=== PATIENT | female | born 1980 | race Caucasian/White ===

== ENCOUNTER 2024-07-06 07:22 | Inpatient (IN) | payer MEDICAID, OTHER ==
[~2024-07-06] VITALS: Ht 160 cm; Wt 74.9 kg
--- NOTE | 2024-07-06 07:45 | ED.PDOC ---
General HPI Comments 44F BIBA w/ prior Hx of "kidney problem"potential dialysis"", Appendectomy, Hysterectomy, Tubal Ligation and Hernia repair which may be associated to the c/c of Flank pain. EMS report the pt having right sided Flank pain which started last night and was associated w/ N/V. Pt notes the pain type to be a 7/10. PMHx of cirrhosis. Social Hx of marijuana use, but denies tobacco and alcohol use. Family Hx of Heart Sullivan. Denies chills, fever, /D, SOB, CP or other associated symptoms, modifiers, or recent injuries at this time. Chief Complaint: Abdominal Pain Time Seen by MD: 07:20 Primary Care Provider: NONE Reviewed notes: Nurses Notes, Care Manager Notes, Medications, Allergies Allergies: Coded Allergies: NO KNOWN ALLERGIES (Unverified , 07/06/24) Information Source: Patient, Emergency Med Personnel Mode of Arrival: EMS Severity: Moderate Timing: Hours Duration: Since onset, Hours Prehospital treatment: Pain Meds Onset: Spontaneous Symptoms: None History of: None Location: (R) Flank associated signs and symptoms: Nausea, Vomiting, Flank Pain Past Medical History Past Medical History (Other): cirrhosis and "kidney problem "potential dialysis"" Surgical History: Appendectomy, Hernia Repair, Hysterectomy, Tubal Ligation ROASTMASTER History: No Pertinent ROASTMASTER History Family History Family History: Family hx of heart estrella Social History Smoker: Non-Smoker Alcohol: Denies ETOH Use Drugs: Marijuana Lives In: Home Constitutional: denies: chills, diaphoresis, fatigue, fever, malaise, sweats, weakness, others EENTM: denies: blurred vision, double vision, ear bleeding, ear discharge, ear drainage, ear pain, ear ringing, eye pain, eye redness, hearing loss, mouth pain, mouth swelling, nasal discharge, nose bleeding, nose congestion, nose pain, photophobia, tearing, throat pain, throat swelling, voice changes, others Respiratory: denies: cough, hemoptysis, orthopnea, SOB at rest, shortness of breath, SOB with excertion, stridor, wheezing, others Cardiovascular: denies: chest pain, dizzy spells, diaphoresis, Dyspnea on exertion, edema, irregular heart beat, left arm pain, lightheadedness, pa lpitations, PND, syncope, others Gastrointestinal: reports: nausea, vomiting; denies: abdomen distended, abdominal pain, blood streaked bowels, constipated, diarrhea, dysphagia, difficulty swallowing, hematemesis, melena, poor appetite, poor fluid intake, rectal bleeding, rectal pain, others Genitourinary: reports: flank pain; denies: abnormal vagina bleeding, burning, dyspareunia, dysuria, frequency, hematuria, incontinence, pain, , vagina discharge, urgency, others Neurological: denies: dizziness, fainting, headache, left sided numbness, left sided weakness, numbness, paresthesia, pre-existing deficit, right sided numbnes s, right sided weakness, seizure, speech problems, tingling, tremors, weakness, others Musculoskeletal: denies: back pain, gout, joint pain, joint swelling, muscle pain, muscle stiffness, neck pain, others Integumetry: denies: bruises, change in color, change in hair/nails, dryness, laceration, lesions, lumps, rash, wounds, others Allergic/Immunocompromised: denies: Difficulty Healing, Frequent Infections, Hives, Itching, others Hematologic/Lymphatic: denies: anemia, blood clots, easy bleeding, easy bruising, swollen glands, others Endocrine: denies: excessive hunger, excessive sweating, excessive thirst, excessive urination, flushing, intolerance to cold, intolerance to heat, unexplained weight gain, unexplained weight loss, others Psychiatric: denies: anxiety, bipolar disorder, depression, hopeless, panic disorder, schizophrenia, sleepless, suicidal, others All Other Systems: Reviewed and Negative Physical Exam General Appearance: Moderate Distress HEENT: Normal ENT Inspection, Pharynx Normal, TMs Normal Neck: Full Range of Motion, Non-Tender, Normal, Normal Inspection Respiratory: Chest Non-Tender, Lungs Clear, No Accessory Muscle Use, No Respiratory Distress, Normal Breath Sounds Cardiovascular: No Edema, No JVD, No Murmur, No Gallop, Normal Peripheral Pulses, Regular Rate/Rhythm Breast Exam: Deferred Gastrointestinal: No Organomegaly, Non Tender, No Pulsatile Mass, Normal Bowel Sounds, Soft Genitalia: Deferred Pelvic: Deferred Rectal: Deferred Extremities: No calf tenderness, Normal capillary refill, Normal inspection, Normal range of motion, Non-tender, No pedal edema Musculoskeletal : Apperance: Normal Neurologic: Alert, spool sander II-XII nml as Tested, No Motor Deficits, Normal Affect, Normal Mood, No Sensory Deficits Cerebellar Function: Normal Reflexes: Normal Skin: Dry, Normal Color, Warm Lymphatic: No Adenopathy Was a procedure done? Was a procedure done?: No Differential Diagnosis Kidney stone (Female): Pancreatitis, Pyelonephritis, Renal failure, Urolithiasis X-Ray, Labs, Meds, VS Vital Signs Date Time Temp Pulse Resp B/P (MAP) Pulse Ox O2 Delivery O2 Flow Rate FiO2 07/06/24 10:30 72 19 139/90 (106) 97 07/06/24 09:30 56 18 145/84 (104) 97 07/06/24 08:30 60 17 147/89 07/06/24 08:02 81 22 138/85 07/06/24 07:56 76 07/06/24 07:55 81 22 100 Room Air* 0 21 07/06/24 07:55 97.9 81 22 138/85 (102) 100 97.9 07/06/24 07:26 97.5 81 20 134/72 (92) 98 Lab Test 07/06/24 09:42 07/06/24 07:48 Range/Units Urine Color Light-yellow Yellow Urine Clarity Clear Clear Urine pH 8.5 5.0-9.0 Urine Specific [place] 1.020 1.001-1.035 Urine Protein 1+ H Negative Urine Ketones 2+ H Negative Urine Blood Negative Negative /uL Urine Nitrite Negative Negative Urine Bilirubin Negative Negative Urine Urobilinogen Normal Negative mg/dL Urine Leukocyte Esterase Negative Negative /uL Urine RBC 1 0 - 4 /hpf Urine WBC <1 0 - 5 /hpf Urine Squamous Epithelial Cells Few <5 /hpf Urine Bacteria Few H None Seen /hpf Urine Mucus Few None Seen Urine Glucose Normal Normal mg/dL Urine Opiates Screen Pos NEGATIVE Urine Fentanyl Screen Neg NEGATIVE Urine Barbiturates Screen Neg NEGATIVE Urine Phencyclidine Screen Neg NEGATIVE Urine Amphetamines Screen Neg NEGATIVE Urine Benzodiazepines Screen Neg NEGATIVE Urine Cocaine Screen Neg NEGATIVE Urine Cannabinoids Screen Pos NEGATIVE White Blood Count 11.2 H 4.4-10.8 10^3/uL Red Blood Count 4.36 4.0-5.20 10^6/uL Hemoglobin 14.2 12.2-16.2 g/dL Hematocrit 42.0 36.0-46.0 % Mean Corpuscular Volume 96.3 80.0-100.0 fL Mean Corpuscular Hemoglobin 32.7 H 28.0-32.0 pg Mean Corpuscular Hemoglobin Concent 34.0 32.0-36.0 g/dL Red Cell Distribution Width 13.8 11.8-14.3 % Platelet Count 418 140-450 10^3/uL Mean Platelet Volume 7.0 6.9-10.8 fL Neutrophils (%) (Auto) 84.3 H 37.0-80.0 % Lymphocytes (%) (Auto) 10.9 10.0-50.0 % Monocytes (%) (Auto) 4.0 0.0-12.0 % Eosinophils (%) (Auto) 0.2 0.0-7.0 % Basophils (%) (Auto) 0.6 0.0-2.0 % Neutrophils # (Auto) 9.5 H 1.6-8.6 10 ^3/uL Lymphocytes # (Auto) 1.2 0.4-5.4 10 ^3/uL Monocytes # (Auto) 0.4 0-1.3 10 ^3/uL Eosinophils # (Auto) 0 0-0.8 10 ^3/uL Basophils # (Auto) 0.1 0-0.2 10 ^3/uL Nucleated Red Blood Cells 0.1 % Sodium Level 141 136-145 mmol/L Potassium Level 3.5 3.5-5.1 mmol/L Chloride Level 104 98-107 mmol/L Carbon Dioxide Level 26 20-31 mmol/L Anion Gap 11 5-15 Blood Urea Nitrogen 6 L 9-23 mg/dL Creatinine 0.87 0.550-1.02 mg/dL Glomerular Filtration Rate Calc 83 >90 mL/min BUN/Creatinine Ratio 6.9 L 10.0-20.0 Serum Glucose 122 H 74-106 mg/dL Calcium Level 9.3 8.7-10.4 mg/dL Total Bilirubin 0.5 0.2-1.0 mg/dL Aspartate Amino Transferase (AST) 32 13-40 U/L Alanine Aminotransferase (ALT) 24 7-40 U/L Alkaline Phosphatase 61 46-116 U/L Total Protein 7.9 5.7-8.2 g/dL Albumin 4.3 3.2-4.8 g/dL Lipase 34 12-53 U/L Current Medications Medications (Trade) Dose Ordered Sig/Elizabeth Route Start Time Stop Time Status Last Admin Morphine Sulfate 4 mg ONCE ONCE IV 07/06/24 07:45 07/06/24 07:46 DC 07/06/24 08:02 Sodium Chloride 500 ml @ 500 mls/hr Q1H ONCE IVB 07/06/24 07:45 07/06/24 08:44 DC 07/06/24 08:02 Prochlorperazine Edisylate (Compazine Inj) 10 mg ONCE ONCE IV 07/06/24 07:45 07/06/24 07:46 DC 07/06/24 08:01 Pantoprazole Sodium (Protonix) 40 mg ONCE ONCE IV 07/06/24 07:45 07/06/24 07:46 DC 07/06/24 08:01 CT scan of the abdomen and pelvis shows: IMPRESSION: 1. No hydronephrosis and no renal or ureteral calculi. 2. Borderline mild hepatomegaly. Small subcentimeter fat density lesion in the liver, likely a small lipoma. 3. Additional nonacute findings as detailed above. The patient was given morphine 4 mg IV push for the pain The patient was given normal saline at a 500 cc bolus. For the vomiting, the patient was given Compazine 10 mg IV push The patient was given Protonix 40 mg IV push The patient did receive some mild relief but the pain has now returned The patient's CBC shows an elevated white blood cell count of 11.2 The rest of the CBC is within normal limits The chemistry panel is within normal limits The urine tox is positive for opiates as well as for marijuana The urine test is negative for infection Because of the persistent pain, the patient was being admitted to the hospitalist The patient understands and agrees with the management. Images Reviewed?: Images reviewed and evaluated by me Time of 1ST Reevaluation: 07:50 Reevaluation 1ST: Unchanged Patient Education/Counseling: Diagnosis, Treatment, Prognosis Family Education/Counseling: No Family Present Departure 1 Departure Time of Disposition: 11:07 Impression: Primary Impression: Intractable abdominal pain Additional Impressions: Intractable vomiting Cannabinoid hyperemesis syndrome Disposition: ADMITTED INPATIENT Admit to: Med Surg Condition: Fair Critical Care Note Critical Care Time?: No Stability Stability form required: Yes Unstable for transfer: ED Physician Assesment (Clinical assesment) Heart Score Heart Score: Heart Score Response (Comments) Value History N/A 0 EKG N/A 0 Age N/A 0 Risk Factors N/A 0 Troponin N/A 0 Total 0 I personally scribed for KRISTIN ROCHA MD ([email or web address]) on 07/06/24 at 07:45. Electronically submitted by William Sylvester ([email or web address]). KRISTIN ROCHA MD Jul 06, 2024 07:45
[2024-07-06 07:55] VITALS: PULSE 81; RESP 22; O2SAT 100
[2024-07-06] MEDS: PANTOPRAZOLE 40 MG/10 ML VIAL INJ IV ONE (08:01)
[2024-07-06] MEDS: PROCHLORPERAZINE EDISYLATE 5 MG/ML 2ML VIAL IV ONE (08:01)
[2024-07-06] MEDS: MORPHINE SULFATE 4 MG/ML SYR/VIAL IV ONE (08:02)
[2024-07-06] MEDS: SODIUM CHLORIDE 0.9% 500 ML IVB ONE (08:02)
[2024-07-06 08:04] LABS: Basophils # (auto) 0.1 10 ^3/uL (0-0.2); Basophils % (auto) 0.6 % (0.0-2.0); Eosinophils # (auto) 0 10 ^3/uL (0-0.8); Eosinophils % (auto) 0.2 % (0.0-7.0); Hemoglobin 14.2 g/dL (12.2-16.2); Lymphocytes # (auto) 1.2 10 ^3/uL (0.4-5.4); Lymphocytes % (auto) 10.9 % (10.0-50.0); Mean Corpuscular Hemoglobin 32.7 pg (28.0-32.0); Mean Corpuscular Volume 96.3 fL (80.0-100.0); Monocytes # (auto) 0.4 10 ^3/uL (0-1.3); Neutrophils # (auto) 9.5 10 ^3/uL (1.6-8.6); Neutrophils % (auto) 84.3 % (37.0-80.0); Nucleated Red Blood Cells % 0.1 %; Platelet Count (auto) 418 10^3/uL (140-450); Red Blood Cells 4.36 10^6/uL (4.0-5.20); Red Cell Distribution Width 13.8 % (11.8-14.3); White Blood Cell 11.2 10^3/uL (4.4-10.8)
[2024-07-06 08:17] LABS: Alanine Aminotransferase 24 U/L (7-40); Albumin 4.3 g/dL (3.2-4.8); Alkaline Phosphatase 61 U/L (46-116); Anion Gap 11 (5-15); Aspartate Aminotransferase 32 U/L (13-40); BUN/Creatinine Ratio 6.9 (10.0-20.0); Blood Urea Nitrogen 6 mg/dL (9-23); Calcium 9.3 mg/dL (8.7-10.4); Carbon Dioxide 26 mmol/L (20-31); Chloride 104 mmol/L (98-107); Glucose 122 mg/dL (74-106); Potassium 3.5 mmol/L (3.5-5.1); Sodium 141 mmol/L (136-145)
[2024-07-06 08:18] LABS: Bilirubin, Total 0.5 mg/dL (0.2-1.0); Total Protein 7.9 g/dL (5.7-8.2)
--- NOTE | 2024-07-06 08:36 | DVH ---
CLINICAL INFORMATION: 44 years old, Female; right flank pain. TECHNIQUE: Axial CT images of the abdomen and pelvis were obtained without IV contrast. Coronal and sagittal reformatted images were obtained, reviewed, and stored. Evaluation of the parenchymal organs is limited without IV contrast. Evaluation of the bowel and mesentery is limited without oral contra st. All CT scans at this medical facility are performed using dose modulation techniques as appropria te to a performed exam including the following: Automated exposure control was utilized; adjustment o f the MA and/or KV according to patient size; and use of iterative reconstruction technique. CTDIvol = 14.27 mGy DLP = 783.1 mGy-cm COMPARISON: None FINDINGS: Lung bases: Lung bases are clear. Liver: 0.6 cm fat density lesion in the liver near the junction of the right and left hepatic lobes, suspected small lipoma. Liver measures up to 16.4 cm in craniocaudal dimension at the midclavicular line, borderline mildly enlarged. Biliary: No calcified gallstones or biliary ductal dilatation. Spleen: Unremarkable. Pancreas: Grossly unremarkable in its noncontrast enhanced appearance. Adrenal glands: Unremarkable. No mass. Kidneys: No hydronephrosis. No renal or ureteral calculi. Aorta/Vascular: No aneurysm or significant calcification. Retroperitoneum: No mass or lymphadenopathy. Bowel/mesentery: No small bowel obstruction. No free air or free fluid. Appendix is not visualized, m ay be surgically absent with postsurgical changes adjacent to the cecum. Pelvic organs: Uterus is surgically absent. Bladder: Unremarkable. No mass. Abdominal wall: No mass or hernia. Bones: No acute fracture or suspicious intraosseous lesion. IMPRESSION: 1. No hydronephrosis and no renal or ureteral calculi. 2. Borderline mild hepatomegaly. Small subcentimeter fat density lesion in the liver, likely a small lipoma. 3. Additional nonacute findings as detailed above.
[2024-07-06 09:10] LABS: Lipase 34 U/L (12-53)
[2024-07-06 10:20] LABS: Urine Bacteria FEW /hpf (None Seen); Urine Blood Negative /uL (Negative); Urine Color Light-Yellow (Yellow); Urine Mucus FEW (None Seen); Urine Protein, UAD 1+ (Negative); Urine Urobilinogen Normal (Negative); Urine WBC <1 /hpf (0 - 5); Urine pH 8.5 (5.0-9.0)
[2024-07-06 10:21] LABS: Urine Clarity Clear (Clear)
[2024-07-06 10:30] LABS: Amphetamine Screen, Urine Neg (NEGATIVE); Barbiturate Scree,Urine Neg (NEGATIVE); Benzodiazephine Screen, Urine Neg (NEGATIVE); Cocaine Screen, Urine Neg (NEGATIVE)
[2024-07-06 10:31] LABS: Cannabinoid Screen, Urine Pos (NEGATIVE); Opiate Scree,Urine Pos (NEGATIVE); Phencyclidine Screen, Urine Neg (NEGATIVE)
--- NOTE | 2024-07-06 12:14 | DVHHP2 ---
History of Present Illness Reason for Visit: Abdominal pain History of Present Illness This 44-year-old female presents in the ED via EMS with a chief complaint of abdominal pain. The patient reports abdominal pain associated with right flank pain, nausea, and vomiting started last night and symptoms worsened early this morning for which prompted to ER visit. The patient denies hematemesis, constipation, diarrhea, or melena. Past medical history of cirrhosis, UTI, and marijuana use. Past Medical History As stated in HPI Past Surgical History Appendectomy, hysterectomy, tubal ligation, Family History Reviewed, non-contributory to the management of this case. Past Social History Admits to marijuana use Denies tobacco use Review of Systems Constitutional: Yes: Malaise; No: Fever, Chills, Sweats, Weakness, Other Eyes: No: Pain, Vision change, Conjunctivae inflammation, Eyelid inflammation, Other, Redness ENT: No: Ear pain, Ear discharge, Nose pain, Nose discharge, Nose congestion, Mouth pain, Mouth swelling, Throat pain, Throat swelling, Other Respiratory: No: Cough, Dry, Shortness of breath, SOB with excertion, Wheezing, Hemoptysis, Pleuritic Pain, Sputum, Wheezing, Other Cardiovascular: No: Chest Pain, Palpitations, Orthopnea, Paroxysmal Noc. Dyspnea, Edema, Lt Headedness, Other Gastrointestinal: Nausea, Vomiting, Abdominal Pain; No: Diarrhea, Constipation, Melena, Hematochezia, Other Genitourinary: No Dysuria, No Frequency, No Incontinence, No Hematuria, No Retention; Other (Right flank pain) Musculoskeletal: No: other, neck pain, shoulder pain, arm pain, back pain, hand pain, leg pain, foot pain Skin: No: Rash, Lesions, Jaundice, Bruising, Other Neurological: No: Weakness, Numbness, Incoordination, Change in speech, Confusion, Seizures, Other Allergies: Coded Allergies: NO KNOWN ALLERGIES (Unverified , 07/06/24) Medications Current Medications Medications Dose Ordered Sig/Elizabeth Route Start Time Stop Time Status Last Admin Dose Admin Acetaminophen/ Hydrocodone Bitart 1 tab Q4HP PRN PO 07/06/24 12:15 UNV Ondansetron HCl 4 mg Q4HP PRN IV 07/06/24 12:15 UNV Acetaminophen 650 mg Q6HP PRN PO 07/06/24 12:15 UNV Morphine Sulfate 2 mg Q4HPRN PRN IV 07/06/24 12:15 UNV Pantoprazole Sodium 40 mg DAILY IV 07/07/24 10:00 UNV Sodium Chloride 1,000 ml @ 100 mls/hr Q10H IV 07/06/24 12:15 UNV Exam Vital Signs Vital Signs Date Time Temp Pulse Resp B/P (MAP) Pulse Ox O2 Delivery O2 Flow Rate FiO2 07/06/24 10:30 72 19 139/90 (106) 97 07/06/24 07:55 Room Air* 0 21 07/06/24 07:55 97.9 97.9 General Appearance: Alert, Oriented X3, Cooperative, mild distress HEENT: Atraumatic, PERRLA, EOMI Respiratory: Clear to auscultation, Normal air movement Cardiovascular: Regular rate, Normal S1, Normal S2 Abdominal: Normal bowel sounds, Soft, No tenderness, Other Extremities: No clubbing, No cyanosis, No edema Skin: No rashes, No breakdown Neuro: Normal gait, Normal speech, Strength at 5/5 X4 ext, Normal tone, Sensation intact Psych/Mental Status: Mental status NL Labs/Xrays Labs Test 07/06/24 09:42 07/06/24 07:48 Range/Units Urine Color Light-yellow Yellow Urine Clarity Clear Clear Urine pH 8.5 5.0-9.0 Urine Specific [place] 1.020 1.001-1.035 Urine Protein 1+ H Negative Urine Ketones 2+ H Negative Urine Blood Negative Negative /uL Urine Nitrite Negative Negative Urine Bilirubin Negative Negative Urine Urobilinogen Normal Negative mg/dL Urine Leukocyte Esterase Negative Negative /uL Urine RBC 1 0 - 4 /hpf Urine WBC <1 0 - 5 /hpf Urine Squamous Epithelial Cells Few <5 /hpf Urine Bacteria Few H None Seen /hpf Urine Mucus Few None Seen Urine Glucose Normal Normal mg/dL Urine Opiates Screen Pos NEGATIVE Urine Fentanyl Screen Neg NEGATIVE Urine Barbiturates Screen Neg NEGATIVE Urine Phencyclidine Screen Neg NEGATIVE Urine Amphetamines Screen Neg NEGATIVE Urine Benzodiazepines Screen Neg NEGATIVE Urine Cocaine Screen Neg NEGATIVE Urine Cannabinoids Screen Pos NEGATIVE White Blood Count 11.2 H 4.4-10.8 10^3/uL Red Blood Count 4.36 4.0-5.20 10^6/uL Hemoglobin 14.2 12.2-16.2 g/dL Hematocrit 42.0 36.0-46.0 % Mean Corpuscular Volume 96.3 80.0-100.0 fL Mean Corpuscular Hemoglobin 32.7 H 28.0-32.0 pg Mean Corpuscular Hemoglobin Concent 34.0 32.0-36.0 g/dL Red Cell Distribution Width 13.8 11.8-14.3 % Platelet Count 418 140-450 10^3/uL Mean Platelet Volume 7.0 6.9-10.8 fL Neutrophils (%) (Auto) 84.3 H 37.0-80.0 % Lymphocytes (%) (Auto) 10.9 10.0-50.0 % Monocytes (%) (Auto) 4.0 0.0-12.0 % Eosinophils (%) (Auto) 0.2 0.0-7.0 % Basophils (%) (Auto) 0.6 0.0-2.0 % Neutrophils # (Auto) 9.5 H 1.6-8.6 10 ^3/uL Lymphocytes # (Auto) 1.2 0.4-5.4 10 ^3/uL Monocytes # (Auto) 0.4 0-1.3 10 ^3/uL Eosinophils # (Auto) 0 0-0.8 10 ^3/uL Basophils # (Auto) 0.1 0-0.2 10 ^3/uL Nucleated Red Blood Cells 0.1 % Sodium Level 141 136-145 mmol/L Potassium Level 3.5 3.5-5.1 mmol/L Chloride Level 104 98-107 mmol/L Carbon Dioxide Level 26 20-31 mmol/L Anion Gap 11 5-15 Blood Urea Nitrogen 6 L 9-23 mg/dL Creatinine 0.87 0.550-1.02 mg/dL Glomerular Filtration Rate Calc 83 >90 mL/min BUN/Creatinine Ratio 6.9 L 10.0-20.0 Serum Glucose 122 H 74-106 mg/dL Calcium Level 9.3 8.7-10.4 mg/dL Total Bilirubin 0.5 0.2-1.0 mg/dL Aspartate Amino Transferase (AST) 32 13-40 U/L Alanine Aminotransferase (ALT) 24 7-40 U/L Alkaline Phosphatase 61 46-116 U/L Total Protein 7.9 5.7-8.2 g/dL Albumin 4.3 3.2-4.8 g/dL Lipase 34 12-53 U/L PROCEDURE(s): ABPL - CT AB PEL WO CON-NO ORAL OR IV REASON: right flank pain ORDER NUMBER(s): [id number], ACCESSION NUMBER(s): [id number] CLINICAL INFORMATION: 44 years old, Female; right flank pain. TECHNIQUE: Axial CT images of the abdomen and pelvis were obtained without IV contrast. Coronal and sagittal reformatted images were obtained, reviewed, and stored. Evaluation of the parenchymal organs is limited without IV contrast. Evaluation of the bowel and mesentery is limited without oral contrast. All CT scans at this medical facility are performed using dose modulation techniques as appropriate to a performed exam including the following: Automated exposure control was utilized; adjustment of the MA and/or KV according to patient size; and use of iterative reconstruction technique. CTDIvol = 14.27 mGy DLP = 783.1 mGy-cm COMPARISON: None FINDINGS: Lung bases: Lung bases are clear. Liver: 0.6 cm fat density lesion in the liver near the junction of the right and left hepatic lobes, suspected small lipoma. Liver measures up to 16.4 cm in craniocaudal dimension at the midclavicular line, borderline mildly enlarged. Biliary: No calcified gallstones or biliary ductal dilatation. Spleen: Unremarkable. Pancreas: Grossly unremarkable in its noncontrast enhanced appearance. Adrenal glands: Unremarkable. No mass. Kidneys: No hydronephrosis. No renal or ureteral calculi. Aorta/Vascular: No aneurysm or significant calcification. Retroperitoneum: No mass or lymphadenopathy. Bowel/mesentery: No small bowel obstruction. No free air or free fluid. Appendix is not visualized, may be surgically absent with postsurgical changes adjacent to the cecum. Pelvic organs: Uterus is surgically absent. Bladder: Unremarkable. No mass. Abdominal wall: No mass or hernia. Bones: No acute fracture or suspicious intraosseous lesion. IMPRESSION: 1. No hydronephrosis and no renal or ureteral calculi. 2. Borderline mild hepatomegaly. Small subcentimeter fat density lesion in the liver, likely a small lipoma. 3. Additional nonacute findings as detailed above. Assessment/Plan Assessment/Plan # acute abdominal pain # right flank pain # possible cystitis # nausea and vomiting Admit to medical unit Urine culture Empiric antibiotic ceftriaxone Antiemetics IV fluid PPI Pain control # marijuana use # cannabinoid hyperemesis syndrome Antiemetics Marijuana cessation counseled # hepatomegaly # hepatic lesion, possible lipoma # hx liver cirrhosis Monitor Medical plan discussed with patient and RN Plan discussed with: Patient My Orders Orders - KAL FARMER Procedure Category Date Status Time Admit ADMIT 07/06/24 Transmitted 12:07 Code Status CODE 07/06/24 Transmitted 12:07 Hydrocodone-Acet PHA 07/06/24 Logged 5/325mg Tab ([place] 12:15 Ondansetron Hcl PHA 07/06/24 Logged (Zofran) 12:15 Complete Blood Count LAB 07/07/24 Verified 04:00 Comprehensive LAB 07/07/24 Verified Metabolic Panel 04:00 Cardiac DIET 07/06/24 Transmitted Diet-2gna,Lofat,Lochol Lunch Condition: Fair FRANK 07/06/24 In Process 12:07 Acetaminophen Tablet PHA 07/06/24 Logged (Tylenol Tablet) 12:15 Morphine Sulfate PHA 07/06/24 Logged Injection 12:15 Pantoprazole PHA 07/07/24 Logged (Protonix) 10:00 Sodium Chloride 0.9% PHA 07/06/24 Logged 12:15 Date of Service: Jul 06, 2024 Billing Provider: KAL FARMER Common Visit Codes: [id number] INP/OBS CARE (HIGH) KAL FARMER Jul 06, 2024 12:14
[2024-07-06] MEDS ORDERED: ACETAMINOPHEN 325 MG TAB PO PRN (12:15)
[2024-07-06] MEDS: SODIUM CHLORIDE 0.9% 1,000 ML IV SCH (12:33)
[2024-07-06] MEDS: ONDANSETRON HCL 4 MG/2 ML VIAL IV PRN (12:33)
[2024-07-06] MEDS: cefTRIAXone 1GM/50ML D5W 50 ML IV ONE (12:33)
[2024-07-06 14:30] VITALS: BP 133/81; PULSE 96; RESP 20; TEMP 98.7; O2SAT 98
[2024-07-06] MEDS: MORPHINE SULFATE INJ 2 MG/ml SYRG IV PRN (14:47)
[2024-07-06 14:55] VITALS: BP 149/76; PULSE 67; RESP 19; TEMP 98.4; O2SAT 95
[2024-07-07 02:00] VITALS: BP 113/62; PULSE 75; TEMP 98.8; O2SAT 98
[2024-07-07 05:00] VITALS: TEMP 98.3; O2SAT 98
[2024-07-07 06:31] LABS: Basophils # (auto) 0 10 ^3/uL (0-0.2); Basophils % (auto) 0.6 % (0.0-2.0); Eosinophils # (auto) 0.1 10 ^3/uL (0-0.8); Eosinophils % (auto) 1.3 % (0.0-7.0); Hematocrit 38.5 % (36.0-46.0); Hemoglobin 13.2 g/dL (12.2-16.2); Lymphocytes # (auto) 1.7 10 ^3/uL (0.4-5.4); Lymphocytes % (auto) 23.9 % (10.0-50.0); Mean Corpuscular Hemoglobin 33.1 pg (28.0-32.0); Mean Corpuscular Hgb Conc. 34.4 g/dL (32.0-36.0); Mean Corpuscular Volume 96.3 fL (80.0-100.0); Monocytes # (auto) 0.7 10 ^3/uL (0-1.3); Neutrophils # (auto) 4.7 10 ^3/uL (1.6-8.6); Neutrophils % (auto) 65.2 % (37.0-80.0); Nucleated Red Blood Cells % 0.1 %; Platelet Count (auto) 341 10^3/uL (140-450); Red Cell Distribution Width 13.9 % (11.8-14.3); White Blood Cell 7.3 10^3/uL (4.4-10.8)
[2024-07-07 06:51] LABS: Alanine Aminotransferase 19 U/L (7-40); Albumin 3.6 g/dL (3.2-4.8); Alkaline Phosphatase 49 U/L (46-116); Anion Gap 8 (5-15); BUN/Creatinine Ratio 8.6 (10.0-20.0); Blood Urea Nitrogen 7 mg/dL (9-23); Calcium 8.5 mg/dL (8.7-10.4); Carbon Dioxide 25 mmol/L (20-31); Chloride 106 mmol/L (98-107); Glucose 97 mg/dL (74-106); Potassium 3.2 mmol/L (3.5-5.1); Sodium 139 mmol/L (136-145)
[2024-07-07 06:52] LABS: Aspartate Aminotransferase 21 U/L (13-40); Total Protein 6.6 g/dL (5.7-8.2)
[2024-07-07 09:00] VITALS: BP 113/71; PULSE 90; RESP 18; TEMP 98.2; O2SAT 98
[2024-07-07] MEDS: MORPHINE SULFATE INJ 2 MG/ml SYRG ONE (09:24)
[2024-07-07] MEDS: cefTRIAXone 1GM/50ML D5W 50 ML IV SCH (09:28)
[2024-07-07] MEDS: PANTOPRAZOLE 40 MG/10 ML VIAL INJ IV SCH (09:28)
[2024-07-07 13:00] VITALS: BP 136/75; PULSE 69; RESP 18; TEMP 98.2; O2SAT 98
--- NOTE | 2024-07-07 15:52 | DVHPN2 ---
Subjective 44-year-old female with a history of cirrhosis, UTI, marijuana use came with nausea and vomiting and abdominal pain she is feeling better today, no vomiting Changes from previous H/P or p: Changes Eyes: No Pain, No Vision change, No Conjunctivae inflammation, No Eyelid inflammation, No Other, No Redness ENT: No Ear pain, No Ear discharge, No Nose pain, No Nose discharge, No Nose congestion, No Mouth pain, No Mouth swelling, No Throat pain, No Throat swelling, No Other Cardiovascular: No Chest Pain, No Palpitations, No Orthopnea, No Paroxysmal Noc. Dyspnea, No Edema, No Lt Headedness, No Other Respiratory: No Cough, No Dry, No Shortness of breath, No SOB with excertion, No Wheezing, No Hemoptysis, No Pleuritic Pain, No Sputum, No Other Gastrointestinal: Nausea, Vomiting, Abdominal Pain; No Diarrhea, No Constipation, No Melena, No Hematochezia, No Other Genitourinary: No Dysuria, No Frequency, No Incontinence, No Hematuria, No Retention; Other (Right flank pain) Musculoskeletal: No other, No neck pain, No shoulder pain, No arm pain, No back pain, No hand pain, No leg pain, No foot pain Skin: No Rash, No Lesions, No Jaundice, No Bruising, No Other Objective Vitals Vital Signs Date Time Temp Pulse Resp B/P (MAP) Pulse Ox O2 Delivery O2 Flow Rate FiO2 07/07/24 13:00 98.2 69 18 136/75 (95) 98 98.2 07/07/24 07:30 Room Air* 0 21 Intake/Output Intake and Output 07/07/24 06:59 Intake Total 2280 ml Balance 2280 ml Intake Oral 530 ml IV Total 1750 ml # Voids 2 General Appearance: Alert, Oriented X3, Cooperative, No acute distress Lungs: Clear to auscultation, Normal air movement Cardiovascular: Regular rate, Normal S1, Normal S2 Abdomen: Normal bowel sounds, Soft, No tenderness Extremities: No edema Medications Current Medications Medications Dose Ordered Sig/Elizabeth Route Start Time Stop Time Status Last Admin Dose Admin Acetaminophen/ Hydrocodone Bitart 1 tab Q4HP PRN PO 07/06/24 12:15 Ondansetron HCl 4 mg Q4HP PRN IV 07/06/24 12:15 07/07/24 12:11 4 MG Acetaminophen 650 mg Q6HP PRN PO 07/06/24 12:15 Morphine Sulfate 2 mg Q4HPRN PRN IV 07/06/24 12:15 07/07/24 09:30 2 MG Pantoprazole Sodium 40 mg DAILY IV 07/07/24 10:00 07/07/24 09:28 40 MG Sodium Chloride 1,000 ml @ 100 mls/hr Q10H IV 07/06/24 12:15 07/07/24 09:29 100 MLS/HR Ceftriaxone Sodium 50 ml @ 100 mls/hr DAILY@09 IV 07/07/24 09:00 07/07/24 09:28 100 MLS/HR Laboratory Results Laboratory Tests 07/07/24 05:49 Chemistry Test 07/07/24 05:49 Albumin 3.6 g/dL (3.2-4.8) Calcium Level 8.5 mg/dL (8.7-10.4) L Total Protein 6.6 g/dL (5.7-8.2) LFT Test 07/07/24 05:49 Alanine Aminotransferase (ALT) 19 U/L (7-40) Alkaline Phosphatase 49 U/L (46-116) Aspartate Amino Transferase (AST) 21 U/L (13-40) Total Bilirubin 1.0 mg/dL (0.2-1.0) Urinalysis Test 07/06/24 09:42 Urine Color Light-yellow (Yellow) Urine Clarity Clear (Clear) Urine pH 8.5 (5.0-9.0) Urine Specific [place] 1.020 (1.001-1.035) Urine Protein 1+ (Negative) H Urine Ketones 2+ (Negative) H Urine Blood Negative /uL (Negative) Urine Nitrite Negative (Negative) Urine Bilirubin Negative (Negative) Urine Urobilinogen Normal mg/dL (Negative) Urine Leukocyte Esterase Negative /uL (Negative) Urine RBC 1 /hpf (0 - 4) Urine WBC <1 /hpf (0 - 5) Urine Squamous Epithelial Cells Few /hpf (<5) Urine Bacteria Few /hpf (None Seen) H Urine Mucus Few (None Seen) Urine Glucose Normal mg/dL (Normal) Microbiology Microbiology Date/Time Source Procedure Growth Status 07/06/24 13:04 Blood Blood Culture - Preliminary NO GROWTH AFTER 24 HOURS OF INCUBATION. Resulted 07/06/24 09:42 Voided Urine Urine Culture - Preliminary Resulted Assessment/Plan Assessment/Plan Abdominal pain Nausea or vomiting Hypokalemia No UTI History of liver cirrhosis Cannabinoids use Plan IV fluids Replace potassium IV Rocephin IV Protonix Check the electrolytes again in the morning Full code Advance directives discussed for 15 minutes Plan discussed with: Patient Date of Service: Jul 07, 2024 Billing Provider: ULISES MADDOX MD Common Visit Codes: [id number] INP/OBS CARE(HIGH) Secondary Visit Codes: [id number] CARE PLAN 30 MINUTES ULISES MADDOX MD Jul 07, 2024 15:52
[2024-07-07] MEDS: POTASSIUM CHL 20 Meq TABLET PO ONE (16:39)
[2024-07-07 17:00] VITALS: BP 149/77; PULSE 91; RESP 18; TEMP 98.3; O2SAT 99
[2024-07-07 21:00] VITALS: BP 113/81; PULSE 83; RESP 17; TEMP 98; O2SAT 97
[2024-07-08 01:00] VITALS: BP 114/70; PULSE 69; RESP 18; TEMP 97.9; O2SAT 98
[2024-07-08 05:00] VITALS: BP 124/81; PULSE 72; RESP 17; TEMP 98.6; O2SAT 98
[2024-07-08 07:08] LABS: Calcium 8.8 mg/dL (8.7-10.4); Chloride 105 mmol/L (98-107); Potassium 3.8 mmol/L (3.5-5.1); Sodium 136 mmol/L (136-145)
[2024-07-08 07:09] LABS: Anion Gap 7 (5-15); Carbon Dioxide 24 mmol/L (20-31)
[2024-07-08 07:14] LABS: Glucose 89 mg/dL (74-106)
[2024-07-08 07:15] LABS: BUN/Creatinine Ratio 7.6 (10.0-20.0); Blood Urea Nitrogen 6 mg/dL (9-23); Magnesium 1.9 mg/dL (1.6-2.6)
[2024-07-08 08:00] VITALS: PULSE 83; RESP 16; O2SAT 98
[2024-07-08] MEDS: HYDROcodone-ACET 5/325MG TAB PO PRN (08:41)
[2024-07-08 09:13] VITALS: BP 105/70; PULSE 83; RESP 16; TEMP 98; O2SAT 98
--- NOTE | 2024-07-08 10:24 | DVHDS2 ---
Discharge Summary Date of Admission Jul 06, 2024 at 12:07 Date of Discharge: Jul 08, 2024 Labs/Diagnostic Data: Laboratory Results Test 07/08/24 05:10 07/07/24 05:49 07/06/24 09:42 07/06/24 07:48 Sodium Level 136 mmol/L (136-145) Potassium Level 3.8 mmol/L (3.5-5.1) Chloride Level 105 mmol/L (98-107) Carbon Dioxide Level 24 mmol/L (20-31) Anion Gap 7 (5-15) Blood Urea Nitrogen 6 mg/dL (9-23) Creatinine 0.79 mg/dL (0.550-1.02) Glomerular Filtration Rate Calc 93 mL/min (>90) BUN/Creatinine Ratio 7.6 (10.0-20.0) Serum Glucose 89 mg/dL (74-106) Calcium Level 8.8 mg/dL (8.7-10.4) Magnesium Level 1.9 mg/dL (1.6-2.6) White Blood Count 7.3 10^3/uL (4.4-10.8) Red Blood Count 4.00 10^6/uL (4.0-5.20) Hemoglobin 13.2 g/dL (12.2-16.2) Hematocrit 38.5 % (36.0-46.0) Mean Corpuscular Volume 96.3 fL (80.0-100.0) Mean Corpuscular Hemoglobin 33.1 pg (28.0-32.0) Mean Corpuscular Hemoglobin Concent 34.4 g/dL (32.0-36.0) Red Cell Distribution Width 13.9 % (11.8-14.3) Platelet Count 341 10^3/uL (140-450) Mean Platelet Volume 7.2 fL (6.9-10.8) Neutrophils (%) (Auto) 65.2 % (37.0-80.0) Lymphocytes (%) (Auto) 23.9 % (10.0-50.0) Monocytes (%) (Auto) 9.0 % (0.0-12.0) Eosinophils (%) (Auto) 1.3 % (0.0-7.0) Basophils (%) (Auto) 0.6 % (0.0-2.0) Neutrophils # (Auto) 4.7 10 ^3/uL (1.6-8.6) Lymphocytes # (Auto) 1.7 10 ^3/uL (0.4-5.4) Monocytes # (Auto) 0.7 10 ^3/uL (0-1.3) Eosinophils # (Auto) 0.1 10 ^3/uL (0-0.8) Basophils # (Auto) 0 10 ^3/uL (0-0.2) Nucleated Red Blood Cells 0.1 % Total Bilirubin 1.0 mg/dL (0.2-1.0) Aspartate Amino Transferase (AST) 21 U/L (13-40) Alanine Aminotransferase (ALT) 19 U/L (7-40) Alkaline Phosphatase 49 U/L (46-116) Total Protein 6.6 g/dL (5.7-8.2) Albumin 3.6 g/dL (3.2-4.8) Urine Color Light-yellow (Yellow) Urine Clarity Clear (Clear) Urine pH 8.5 (5.0-9.0) Urine Specific [place] 1.020 (1.001-1.035) Urine Protein 1+ (Negative) Urine Ketones 2+ (Negative) Urine Blood Negative /uL (Negative) Urine Nitrite Negative (Negative) Urine Bilirubin Negative (Negative) Urine Urobilinogen Normal mg/dL (Negative) Urine Leukocyte Esterase Negative /uL (Negative) Urine RBC 1 /hpf (0 - 4) Urine WBC <1 /hpf (0 - 5) Urine Squamous Epithelial Cells Few /hpf (<5) Urine Bacteria Few /hpf (None Seen) Urine Mucus Few (None Seen) Urine Glucose Normal mg/dL (Normal) Urine Opiates Screen Pos (NEGATIVE) Urine Fentanyl Screen Neg (NEGATIVE) Urine Barbiturates Screen Neg (NEGATIVE) Urine Phencyclidine Screen Neg (NEGATIVE) Urine Amphetamines Screen Neg (NEGATIVE) Urine Benzodiazepines Screen Neg (NEGATIVE) Urine Cocaine Screen Neg (NEGATIVE) Urine Cannabinoids Screen Pos (NEGATIVE) Lipase 34 U/L (12-53) Other Laboratory Tests 07/08/24 05:10 07/07/24 05:49 Brief Hx & Hospital Course: 44-year-old female who was admitted for abdominal pain and nausea and vomiting Workup was negative except for hypokalemia She was given IV fluids and antiemetics and she improved overnight Her labs today look better She is asymptomatic She is tolerating her diet She can be discharged home Final diagnoses: Abdominal pain, unspecified Nausea and vomiting, resolved Hypokalemia, corrected No UTI History of liver cirrhosis Cannabinoids use Condition at Discharge: Stable Final Diagnosis/Problems List Abdominal pain Nausea and vomiting Hypokalemia , corrected No UTI History of liver cirrhosis Cannabinoids use Discharge Disposition: Home SNF Discharge Will this Physician continue t: No Discharge Instruct/Medications Diet: Regular Activity: No Restrictions, As Tolerated Follow Up/Referral: PCP as soon as possible Medications: Same home medications No new medications Discharge Statement: "Patient was advised to return to the ER or call 911 if any headaches, dizziness, shortness of breath, chest pain, abdominal pain, bleeding, fevers, or worsening of medical condition. Patient was counseled about treatment plan, medications, possible side effects, patientverbalized understanding. All questions were answered to the best of my ability. This discharge took greater then 30 minutes in planning, reviewing documentation, counseling the patient, and discussing with other team members." ASSESSMENT ASSESSMENT Assessment Abdominal pain Nausea and vomiting Hypokalemia , corrected No UTI History of liver cirrhosis Cannabinoids use Date of Service: Jul 08, 2024 Billing Provider: ULISES MADDOX MD Common Visit Codes: [id number] DISCH DAY >30min ULISES MADDOX MD Jul 08, 2024 10:24
[2024-07-08 10:57] VITALS: BP 105/70; PULSE 83; RESP 16; TEMP 98; O2SAT 98
== END 2024-07-08 11:20 | disposition home or self-care (01) | DRG 249 ==
LOC: EDBD 07:22 → ER 07:22 → OVERFLOW 12:07 → WEST WING 16:30
PROVIDERS: ADMIT Registered Nurse; ATTEND Internal Medicine Geriatric Medicine
DX: K52.9 Noninfective gastroenteritis and colitis, unspecified (principal); K74.60 Unspecified cirrhosis of liver; R16.0 Hepatomegaly, not elsewhere classified; F12.90 Cannabis use, unspecified, uncomplicated; R11.2 Nausea with vomiting, unspecified; K76.9 Liver disease, unspecified; E87.6 Hypokalemia; Z90.710 Acquired absence of both cervix and uterus
CPT/HCPCS: 36415; 74176; 80048; 80053; 80307; 81001; 83690; 83735; 85025; 87040; 87086; G0378; J2405; J2470

== ENCOUNTER 2024-07-27 13:38 | Inpatient (IN) | payer MEDICAID ==
[~2024-07-27] VITALS: Ht 165.1 cm; Wt 86.0 kg
--- NOTE | 2024-07-27 14:34 | ED.PDOC ---
History of Present Illness HPI Comments 44-year-old female brought by paramedics because of nausea vomiting which started at 7:00 p.m. last night. Patient states that she has a history of heavy drinking last drink was two days ago. Use marijuana this morning. Continues to have nausea vomiting. Mild abdominal discomfort. History of liver disease. Denies any other symptoms. 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 Family History Family History: Family hx of heart estrella Social History Smoker: Cigarettes Alcohol: Heavy Drugs: Marijuana Lives In: Home Constitutional: denies: chills, diaphoresis, fatigue, fever, malaise, sweats, weakness, others EENTM: denies: blurred vision, double vision, ear bleeding, ear discharge, ear drainage, ear pain, ear ringing, eye pain, eye redness, hearing loss, mouth pain, mouth swelling, nasal discharge, nose bleeding, nose congestion, nose pain, photophobia, tearing, throat pain, throat swelling, voice changes, others Respiratory: denies: cough, hemoptysis, orthopnea, SOB at rest, shortness of breath, SOB with excertion, stridor, wheezing, others Cardiovascular: denies: chest pain, dizzy spells, diaphoresis, Dyspnea on exertion, edema, irregular heart beat, left arm pain, lightheadedness, palpitations, PND, syncope, others Gastrointestinal: reports: nausea, vomiting; denies: abdomen distended, abdominal pain, blood streaked bowels, constipated, diarrhea, dysphagia, difficulty swallowing, hematemesis, melena, poor appetite, poor fluid intake, rectal bleeding, rectal pain, others Genitourinary: denies: abnormal vagina bleeding, burning, dyspareunia, dysuria, flank pain, frequency, hematuria, incontinence, pain, , vagina discharge, urgency, others Neurological: denies: dizziness, fainting, headache, left sided numbness, left sided weakness, numbness, paresthesia, pre-existing deficit, right sided numbnes s, right sided weakness, seizure, speech problems, tingling, tremors, weakness, others Musculoskeletal: denies: back pain, gout, joint pain, joint swelling, muscle pain, muscle stiffness, neck pain, others Integumetry: denies: bruises, change in color, change in hair/nails, dryness, laceration, lesions, lumps, rash, wounds, others Allergic/Immunocompromised: denies: Difficulty Healing, Frequent Infections, Hives, Itching, others Hematologic/Lymphatic: denies: anemia, blood clots, easy bleeding, easy bruising, swollen glands, others Endocrine: denies: excessive hunger, excessive sweating, excessive thirst, excessive urination, flushing, intolerance to cold, intolerance to heat, unexplained weight gain, unexplained weight loss, others Psychiatric: denies: anxiety, bipolar disorder, depression, hopeless, panic disorder, schizophrenia, sleepless, suicidal, others Physical Exam General Appearance: Moderate Distress HEENT: Normal ENT Inspection, Pharynx Normal, TMs Normal Neck: Full Range of Motion, Non-Tender, Normal, Normal Inspection Respiratory: Chest Non-Tender, Lungs Clear, No Accessory Muscle Use, No Respiratory Distress, Normal Breath Sounds Cardiovascular: No Edema, No JVD, No Murmur, No Gallop, Normal Peripheral Pulses, Regular Rate/Rhythm Breast Exam: Deferred Gastrointestinal: No Organomegaly, Non Tender, No Pulsatile Mass, Normal Bowel Sounds, Soft Genitalia: Deferred Pelvic: Deferred Rectal: Deferred Extremities: No calf tenderness, No pedal edema Musculoskeletal : Apperance: Normal Neurologic: Alert Cerebellar Function: NOT DONE Reflexes: NOT DONE Skin: Normal Color Peripheral Pulses: 3+ Radial (R), 3+ Radial (L) Lymphatic: No Adenopathy Was a procedure done? Was a procedure done?: No Differential Dx Considerations may include: Gastroenteritis Marijuana use X-Ray, Labs, Meds, VS Vital Signs Date Time Temp Pulse Resp B/P (MAP) Pulse Ox O2 Delivery O2 Flow Rate FiO2 07/27/24 15:17 71 19 95 Room Air* 0 21 07/27/24 15:17 98.2 71 15 150/86 (107) 95 98.2 07/27/24 15:14 71 18 150/86 07/27/24 13:49 98.4 97 18 137/95 (109) 100 Lab Test 07/27/24 15:23 Range/Units White Blood Count 16.3 H 4.4-10.8 10^3/uL Red Blood Count 4.78 4.0-5.20 10^6/uL Hemoglobin 15.6 12.2-16.2 g/dL Hematocrit 45.8 36.0-46.0 % Mean Corpuscular Volume 95.8 80.0-100.0 fL Mean Corpuscular Hemoglobin 32.6 H 28.0-32.0 pg Mean Corpuscular Hemoglobin Concent 34.0 32.0-36.0 g/dL Red Cell Distribution Width 14.0 11.8-14.3 % Platelet Count 395 140-450 10^3/uL Mean Platelet Volume 7.1 6.9-10.8 fL Neutrophils (%) (Auto) 90.8 H 37.0-80.0 % Lymphocytes (%) (Auto) 4.0 L 10.0-50.0 % Monocytes (%) (Auto) 4.8 0.0-12.0 % Eosinophils (%) (Auto) 0.0 0.0-7.0 % Basophils (%) (Auto) 0.4 0.0-2.0 % Neutrophils # (Auto) 14.8 H 1.6-8.6 10 ^3/uL Lymphocytes # (Auto) 0.6 0.4-5.4 10 ^3/uL Monocytes # (Auto) 0.8 0-1.3 10 ^3/uL Eosinophils # (Auto) 0 0-0.8 10 ^3/uL Basophils # (Auto) 0.1 0-0.2 10 ^3/uL Nucleated Red Blood Cells 0.0 % Urine Color Yellow Yellow Urine Clarity Clear Clear Urine pH 7.5 5.0-9.0 Urine Specific [place] 1.034 1.001-1.035 Urine Protein 2+ H Negative Urine Ketones 2+ H Negative Urine Blood 1+ H Negative /uL Urine Nitrite Negative Negative Urine Bilirubin Negative Negative Urine Urobilinogen Normal Negative mg/dL Urine Leukocyte Esterase Negative Negative /uL Urine RBC 6 0 - 4 /hpf Urine WBC 1 0 - 5 /hpf Urine Squamous Epithelial Cells Few <5 /hpf Urine Bacteria None seen None Seen /hpf Urine Mucus Few None Seen Urine Yeast (Budding) Occasional None Seen /hpf Urine Glucose Normal Normal mg/dL Sodium Level 135 L 136-145 mmol/L Potassium Level 3.3 L 3.5-5.1 mmol/L Chloride Level 96 L 98-107 mmol/L Carbon Dioxide Level 27 20-31 mmol/L Anion Gap 12 5-15 Blood Urea Nitrogen 11 9-23 mg/dL Creatinine 0.98 0.550-1.02 mg/dL Glomerular Filtration Rate Calc 72 >90 mL/min BUN/Creatinine Ratio 11.2 10.0-20.0 Serum Glucose 141 H 74-106 mg/dL Calcium Level 10.4 8.7-10.4 mg/dL Urine Opiates Screen Pos NEGATIVE Urine Fentanyl Screen Neg NEGATIVE Urine Barbiturates Screen Neg NEGATIVE Urine Phencyclidine Screen Neg NEGATIVE Urine Amphetamines Screen Neg NEGATIVE Urine Benzodiazepines Screen Neg NEGATIVE Urine Cocaine Screen Neg NEGATIVE Urine Cannabinoids Screen Pos NEGATIVE Current Medications Medications (Trade) Dose Ordered Sig/Elizabeth Route Start Time Stop Time Status Last Admin Ondansetron HCl (Zofran) 4 mg ONCE ONCE IV 07/27/24 14:15 07/27/24 14:16 DC 07/27/24 15:14 Sodium Chloride 1,000 ml @ 1,000 mls/hr Q1H ONCE IVB 07/27/24 14:15 07/27/24 15:14 DC 07/27/24 15:13 Morphine Sulfate 4 mg ONCE ONCE IV 07/27/24 14:15 07/27/24 14:16 DC 07/27/24 15:14 Patient alert pain Complaining of nausea vomiting. History of marijuana use. Vitals stable. Establish intravenous access. Was given fluids pain Was given morphine. Was given Zofran. Counseled patient on effects of using marijuana for 15 minutes. Counseled patient on effects of alcohol for 15 minutes. Explained to the patient. Continue cardiac monitoring. WBC elevated. Was given Rocephin. Was given Flagyl. Time of 1ST Reevaluation: 14:33 Reevaluation 1ST: Unchanged Patient Education/Counseling: Diagnosis, Treatment, Prognosis Family Education/Counseling: No Family Present Departure 1 Departure Time of Disposition: 14:34 Impression: Primary Impression: Intractable vomiting Additional Impressions: Cannabinoid hyperemesis syndrome Non-specific colitis Disposition: 09 ADMITTED INPATIENT Admit to: Med Surg Condition: Guarded e-Prescriptions No Active Prescriptions or Reported Meds Critical Care Note Critical Care Time?: Yes (45 min-critical care time only) Stability Stability form required: No Heart Score Heart Score: Heart Score Response (Comments) Value History N/A 0 EKG N/A 0 Age N/A 0 Risk Factors N/A 0 Troponin N/A 0 Total 0 ZACARIAS JIMENEZ MD Jul 27, 2024 14:34
[2024-07-27] MEDS: SODIUM CHLORIDE 0.9% 1,000 ML IVB ONE (15:13)
[2024-07-27] MEDS: ONDANSETRON HCL 4 MG/2 ML VIAL IV ONE ×2 (15:14→18:21)
[2024-07-27] MEDS: MORPHINE SULFATE 4 MG/ML SYR/VIAL IV ONE ×2 (15:14→18:22)
[2024-07-27 15:17] VITALS: PULSE 71; RESP 19; O2SAT 95
[2024-07-27 15:32] LABS: Basophils # (auto) 0.1 10 ^3/uL (0-0.2); Basophils % (auto) 0.4 % (0.0-2.0); Eosinophils # (auto) 0 10 ^3/uL (0-0.8); Hematocrit 45.8 % (36.0-46.0); Hemoglobin 15.6 g/dL (12.2-16.2); Lymphocytes # (auto) 0.6 10 ^3/uL (0.4-5.4); Mean Corpuscular Hemoglobin 32.6 pg (28.0-32.0); Mean Corpuscular Volume 95.8 fL (80.0-100.0); Monocytes # (auto) 0.8 10 ^3/uL (0-1.3); Monocytes % (auto) 4.8 % (0.0-12.0); Neutrophils # (auto) 14.8 10 ^3/uL (1.6-8.6); Neutrophils % (auto) 90.8 % (37.0-80.0); Platelet Count (auto) 395 10^3/uL (140-450); Red Blood Cells 4.78 10^6/uL (4.0-5.20); White Blood Cell 16.3 10^3/uL (4.4-10.8)
[2024-07-27 15:41] LABS: Anion Gap 12 (5-15); Calcium 10.4 mg/dL (8.7-10.4); Carbon Dioxide 27 mmol/L (20-31)
[2024-07-27 15:42] LABS: Urine Bacteria None Seen /hpf (None Seen)
[2024-07-27 15:46] LABS: BUN/Creatinine Ratio 11.2 (10.0-20.0); Blood Urea Nitrogen 11 mg/dL (9-23)
[2024-07-27 15:48] LABS: Urine Blood 1+ /uL (Negative); Urine Budding Yeast OCCASIONAL /hpf (None Seen); Urine Clarity Clear (Clear); Urine Color Yellow (Yellow); Urine Mucus FEW (None Seen); Urine Protein, UAD 2+ (Negative); Urine Specific Gravity 1.034 (1.001-1.035); Urine Urobilinogen Normal (Negative); Urine WBC 1 /hpf (0 - 5); Urine pH 7.5 (5.0-9.0)
[2024-07-27 16:16] LABS: Chloride 96 mmol/L (98-107); Glucose 141 mg/dL (74-106); Potassium 3.3 mmol/L (3.5-5.1); Sodium 135 mmol/L (136-145)
[2024-07-27 16:19] LABS: Amphetamine Screen, Urine Neg (NEGATIVE); Barbiturate Scree,Urine Neg (NEGATIVE); Benzodiazephine Screen, Urine Neg (NEGATIVE); Cannabinoid Screen, Urine Pos (NEGATIVE); Cocaine Screen, Urine Neg (NEGATIVE); Opiate Scree,Urine Pos (NEGATIVE); Phencyclidine Screen, Urine Neg (NEGATIVE)
[2024-07-27] MEDS: cefTRIAXone 1GM/50ML D5W 50 ML IV ONE (18:10)
[2024-07-27] MEDS ORDERED: MAALOX PLUS or MAALOX 30 ML PO PRN (18:15)
[2024-07-27] MEDS ORDERED: ONDANSETRON HCL 4 MG/2 ML VIAL IV PRN (18:15)
[2024-07-27] MEDS ORDERED: DEXTROSE (50%) 50ML SYRG IV PRN (18:15)
[2024-07-27] MEDS ORDERED: HYDROcodone-ACET 5/325MG TAB PO PRN (18:15)
[2024-07-27] MEDS ORDERED: DOCUSATE SOD 100 MG CAP PO PRN (18:15)
[2024-07-27] MEDS ORDERED: ACETAMINOPHEN 325 MG TAB PO PRN (18:15)
[2024-07-27] MEDS ORDERED: LORazepam 0.5 MG TAB PO PRN (18:15)
[2024-07-27] MEDS: SODIUM CHLORIDE 0.9% 1,000 ML IV SCH (18:15)
[2024-07-27] MEDS ORDERED: TEMAZEPAM 15 MG CAP PO PRN (18:15)
--- NOTE | 2024-07-27 18:15 | DVHHP2 ---
History of Present Illness Reason for Visit: Abdominal pain History of Present Illness 44-year-old obese female comes into the ED for complaints of nausea and vomiting patient has been heavily binge drinking using marijuana using other drugs including opioids and comes into the ED for complaints of abdominal pain patient was stated to have intractable nausea vomiting inconsistent pain in the ED patient was recommended for admission and further evaluation and continued management GI: Gastritis Review of Systems Constitutional: Yes: Weakness; No: Fever, Chills, Sweats, Malaise, Other Eyes: No: Pain, Vision change, Conjunctivae inflammation, Eyelid inflammation, Other, Redness ENT: No: Ear pain, Ear discharge, Nose pain, Nose discharge, Nose congestion, Mouth pain, Mouth swelling, Throat pain, Throat swelling, Other Respiratory: No: Cough, Dry, Shortness of breath, SOB with excertion, Wheezing, Hemoptysis, Pleuritic Pain, Sputum, Wheezing, Other Cardiovascular: No: Chest Pain, Palpitations, Orthopnea, Paroxysmal Noc. Dyspnea, Edema, Lt Headedness, Other Gastrointestinal: Nausea, Vomiting, Abdominal Pain; No: Diarrhea, Constipation, Melena, Hematochezia, Other Genitourinary: No Dysuria, No Frequency, No Incontinence, No Hematuria, No Retention, No Other Musculoskeletal: No: other, neck pain, shoulder pain, arm pain, back pain, hand pain, leg pain, foot pain Skin: No: Rash, Lesions, Jaundice, Bruising, Other Neurological: No: Weakness, Numbness, Incoordination, Change in speech, Confusion, Seizures, Other Allergies: Coded Allergies: NO KNOWN ALLERGIES (Unverified , 07/06/24) Exam Vital Signs Vital Signs Date Time Temp Pulse Resp B/P (MAP) Pulse Ox O2 Delivery O2 Flow Rate FiO2 07/27/24 15:17 71 19 95 Room Air* 0 21 07/27/24 15:17 98.2 150/86 (107) 98.2 General Appearance: Alert, Oriented X3, Cooperative, mild distress HEENT: Atraumatic, PERRLA Respiratory: Clear to auscultation, Normal air movement Cardiovascular: Regular rate, Normal S1, Normal S2 Abdominal: Normal bowel sounds, Soft, No tenderness Extremities: No clubbing, No cyanosis, No edema Skin: No rashes, No breakdown, No significant lesion Neuro: Normal gait, Normal speech Psych/Mental Status: Mood NL Labs/Xrays Labs Test 12/8/24 15:23 Range/Units White Blood Count 16.3 H 4.4-10.8 10^3/uL Red Blood Count 4.78 4.0-5.20 10^6/uL Hemoglobin 15.6 12.2-16.2 g/dL Hematocrit 45.8 36.0-46.0 % Mean Corpuscular Volume 95.8 80.0-100.0 fL Mean Corpuscular Hemoglobin 32.6 H 28.0-32.0 pg Mean Corpuscular Hemoglobin Concent 34.0 32.0-36.0 g/dL Red Cell Distribution Width 14.0 11.8-14.3 % Platelet Count 395 140-450 10^3/uL Mean Platelet Volume 7.1 6.9-10.8 fL Neutrophils (%) (Auto) 90.8 H 37.0-80.0 % Lymphocytes (%) (Auto) 4.0 L 10.0-50.0 % Monocytes (%) (Auto) 4.8 0.0-12.0 % Eosinophils (%) (Auto) 0.0 0.0-7.0 % Basophils (%) (Auto) 0.4 0.0-2.0 % Neutrophils # (Auto) 14.8 H 1.6-8.6 10 ^3/uL Lymphocytes # (Auto) 0.6 0.4-5.4 10 ^3/uL Monocytes # (Auto) 0.8 0-1.3 10 ^3/uL Eosinophils # (Auto) 0 0-0.8 10 ^3/uL Basophils # (Auto) 0.1 0-0.2 10 ^3/uL Nucleated Red Blood Cells 0.0 % Urine Color Yellow Yellow Urine Clarity Clear Clear Urine pH 7.5 5.0-9.0 Urine Specific [place] 1.034 1.001-1.035 Urine Protein 2+ H Negative Urine Ketones 2+ H Negative Urine Blood 1+ H Negative /uL Urine Nitrite Negative Negative Urine Bilirubin Negative Negative Urine Urobilinogen Normal Negative mg/dL Urine Leukocyte Esterase Negative Negative /uL Urine RBC 6 0 - 4 /hpf Urine WBC 1 0 - 5 /hpf Urine Squamous Epithelial Cells Few <5 /hpf Urine Bacteria None seen None Seen /hpf Urine Mucus Few None Seen Urine Yeast (Budding) Occasional None Seen /hpf Urine Glucose Normal Normal mg/dL Sodium Level 135 L 136-145 mmol/L Potassium Level 3.3 L 3.5-5.1 mmol/L Chloride Level 96 L 98-107 mmol/L Carbon Dioxide Level 27 20-31 mmol/L Anion Gap 12 5-15 Blood Urea Nitrogen 11 9-23 mg/dL Creatinine 0.98 0.550-1.02 mg/dL Glomerular Filtration Rate Calc 72 >90 mL/min BUN/Creatinine Ratio 11.2 10.0-20.0 Serum Glucose 141 H 74-106 mg/dL Calcium Level 10.4 8.7-10.4 mg/dL Urine Opiates Screen Pos NEGATIVE Urine Fentanyl Screen Neg NEGATIVE Urine Barbiturates Screen Neg NEGATIVE Urine Phencyclidine Screen Neg NEGATIVE Urine Amphetamines Screen Neg NEGATIVE Urine Benzodiazepines Screen Neg NEGATIVE Urine Cocaine Screen Neg NEGATIVE Urine Cannabinoids Screen Pos NEGATIVE Assessment/Plan Assessment/Plan Admit to [facility] Suspected colitis versus gastroenteritis Patient with a drug use history Heavy alcohol abuse history Intractable nausea vomiting and abdominal pain CT scan ordered for evaluation IV hydration IV antibiotics for suspected possible infectious gastroenteritis Plan is to be discontinued once infection ruled out Plan discussed with: Patient My Orders Orders - MILAGROS SAMANO MD Procedure Category Date Status Time Ct Ab Pel Wo Con-No CT 07/27/24 Logged Oral Or Iv 18:06 Test, Urine LAB 07/27/24 Logged 18:06 Glucose Blood PHA 07/27/24 Logged (Accu-Chek Comfort 20:00 Insulin R (Human) PHA 07/27/24 Logged (Insulin R) 20:00 Dextrose 50% Syringe PHA 07/27/24 Logged 18:15 Admit ADMIT 07/27/24 Transmitted 18:06 Code Status CODE 07/27/24 Transmitted 18:06 Vital Signs [facility] 07/27/24 In Process 18:06 Review Orders With FRANK 07/27/24 In Process Adm. 18:06 Consistent DIET 07/27/24 Transmitted Carb(Ccho)Diabetes Dinner Sodium Chloride 0.9% PHA 07/27/24 Logged 18:15 Lorazepam Tablet PHA 07/27/24 Logged (Ativan Tablet) 18:15 Alum & Mag PHA 07/27/24 Logged Hydrox-Simethicone 18:15 Docusate Sodium PHA 07/27/24 Logged Capsule (Colace 18:15 Acetaminophen Tablet PHA 07/27/24 Logged (Tylenol Tablet) 18:15 Temazepam (Restoril) PHA 07/27/24 Logged 18:15 Notify Md Of Changes FRANK 07/27/24 In Process From Base 18:06 Advance Directive FRANK 07/27/24 In Process 18:06 Basic Metabolic Panel LAB 07/28/24 Verified 04:00 Complete Blood Count LAB 07/28/24 Verified 04:00 Patient Condition ORDERS 07/27/24 Transmitted 18:06 Allergies FRANK 07/27/24 In Process 18:06 Hydrocodone-Acet PHA 07/27/24 Logged 5/325mg Tab ([place] 18:15 Ondansetron Hcl PHA 07/27/24 Logged (Zofran) 18:15 Morphine Sulfate PHA 07/27/24 Logged Injection 18:15 Notify Md Of Changes [facility] 07/27/24 In Process From Base 18:06 Oxygen By Nasal RT 07/27/24 Transmitted Cannula 18:06 Ceftriaxone 1gm/50ml PHA 07/28/24 Logged D5w (Rocephin) 10:00 Metronidazole PHA 07/27/24 Logged 500mg/100ml (Flagyl 22:00 Problem List: (1) Intractable abdominal pain (2) Non-specific colitis (3) Intractable vomiting (4) Cannabinoid hyperemesis syndrome Date of Service: Jul 27, 2024 Billing Provider: MILAGROS SAMANO MD Common Visit Codes: [id number] INP/OBS CARE (HIGH) MILAGROS SAMANO MD Jul 27, 2024 18:15
[2024-07-27] MEDS: metroNIDAZOLE 500MG/100ML 100 ML IV ONE (18:22)
--- NOTE | 2024-07-27 19:43 | DVH ---
Exam: CT CT AB PEL WO CON-NO ORAL OR IV History: abd pain Comparison Study: CT CT AB PEL WO CON-NO ORAL OR IV on DOS: 07/06/24 TECHNIQUE: Multidetector CT of the abdomen and pelvis was performed from lung bases to pubic symphysi s. Imaging was performed without IV contrast. Axial, coronal, and sagittal multiplanar reformats were obtained from the axial data set by the technologist. RADIATION DOSE: DLP 487.36 mGy.cm; CTDI vol 9.36 mGy. Findings: Limited evaluation given noncontrast technique. Lungs: The lung bases are clear. Heart: The visualized heart is unremarkable. No cardiomegaly or pericardial effusion. Liver: Subcentimeter hypodense hepatic lesions which are too small to characterize. Gallbladder: Unremarkable. Spleen: Unremarkable Pancreas: Unremarkable Adrenals: Unremarkable Kidneys: Unremarkable GI tract: Unremarkable. Appendectomy. : Unremarkable. Vasculature: Unremarkable Lymphadenopathy: Absent Peritoneum: No ascites Musculoskeletal: Unremarkable Soft tissues: Unremarkable Impression: 1. Limited evaluation given noncontrast technique. 2. No definite acute abdominopelvic abnormalities.
[2024-07-27] MEDS: InsuLIN REG 1unit/0.01ml Soln (100units/ml) SC SCH (20:51)
[2024-07-27] MEDS: ACCU-CHEK COMFORT CURVE STRIP VI SCH (20:56)
[2024-07-27] MEDS: MORPHINE SULFATE INJ 2 MG/ml SYRG IV PRN (21:01)
[2024-07-27] MEDS: ONDANSETRON HCL 4 MG/2 ML VIAL IV PRN (23:41)
[2024-07-28] MEDS: metroNIDAZOLE 500MG/100ML 100 ML IV SCH (00:13)
[2024-07-28] MEDS: METOCLOPRAMIDE HCL 5MG/ml INJ 2ml VIAL IV ONE (03:24)
[2024-07-28 06:52] LABS: Anion Gap 12 (5-15); Carbon Dioxide 27 mmol/L (20-31)
[2024-07-28 06:53] LABS: Calcium 9.9 mg/dL (8.7-10.4)
[2024-07-28 06:56] LABS: Chloride 96 mmol/L (98-107); Potassium 2.8 mmol/L (3.5-5.1); Sodium 135 mmol/L (136-145)
[2024-07-28 06:58] LABS: Blood Urea Nitrogen 13 mg/dL (9-23)
[2024-07-28 06:59] LABS: Basophils # (auto) 0 10 ^3/uL (0-0.2); Basophils % (auto) 0.1 % (0.0-2.0); Eosinophils # (auto) 0 10 ^3/uL (0-0.8); Hematocrit 43.7 % (36.0-46.0); Lymphocytes # (auto) 0.7 10 ^3/uL (0.4-5.4); Lymphocytes % (auto) 4.4 % (10.0-50.0); Mean Corpuscular Hemoglobin 32.9 pg (28.0-32.0); Mean Corpuscular Hgb Conc. 34.3 g/dL (32.0-36.0); Monocytes # (auto) 1.1 10 ^3/uL (0-1.3); Monocytes % (auto) 6.5 % (0.0-12.0); Neutrophils # (auto) 14.5 10 ^3/uL (1.6-8.6); Platelet Count (auto) 425 10^3/uL (140-450); Red Blood Cells 4.55 10^6/uL (4.0-5.20); Red Cell Distribution Width 13.8 % (11.8-14.3); White Blood Cell 16.3 10^3/uL (4.4-10.8)
[2024-07-28 07:00] LABS: Glucose 123 mg/dL (74-106)
[2024-07-28] MEDS: cefTRIAXone 1GM/50ML D5W 50 ML IV SCH (10:01)
[2024-07-28 11:00] VITALS: BP 150/91; PULSE 100; RESP 19; O2SAT 99
--- NOTE | 2024-07-28 11:52 | DVHDS2 ---
Discharge Summary Date of Admission Jul 27, 2024 at 18:06 Labs/Diagnostic Data: Laboratory Results Test 07/28/24 08:23 07/28/24 06:11 07/27/24 15:25 07/27/24 15:23 POC Glucose 126 mg/dl (70-106) White Blood Count 16.3 10^3/uL (4.4-10.8) Red Blood Count 4.55 10^6/uL (4.0-5.20) Hemoglobin 15.0 g/dL (12.2-16.2) Hematocrit 43.7 % (36.0-46.0) Mean Corpuscular Volume 96.0 fL (80.0-100.0) Mean Corpuscular Hemoglobin 32.9 pg (28.0-32.0) Mean Corpuscular Hemoglobin Concent 34.3 g/dL (32.0-36.0) Red Cell Distribution Width 13.8 % (11.8-14.3) Platelet Count 425 10^3/uL (140-450) Mean Platelet Volume 7.7 fL (6.9-10.8) Neutrophils (%) (Auto) 89.0 % (37.0-80.0) Lymphocytes (%) (Auto) 4.4 % (10.0-50.0) Monocytes (%) (Auto) 6.5 % (0.0-12.0) Eosinophils (%) (Auto) 0.0 % (0.0-7.0) Basophils (%) (Auto) 0.1 % (0.0-2.0) Neutrophils # (Auto) 14.5 10 ^3/uL (1.6-8.6) Lymphocytes # (Auto) 0.7 10 ^3/uL (0.4-5.4) Monocytes # (Auto) 1.1 10 ^3/uL (0-1.3) Eosinophils # (Auto) 0 10 ^3/uL (0-0.8) Basophils # (Auto) 0 10 ^3/uL (0-0.2) Nucleated Red Blood Cells 0.0 % Sodium Level 135 mmol/L (136-145) Potassium Level 2.8 mmol/L (3.5-5.1) Chloride Level 96 mmol/L (98-107) Carbon Dioxide Level 27 mmol/L (20-31) Anion Gap 12 (5-15) Blood Urea Nitrogen 13 mg/dL (9-23) Creatinine 1.00 mg/dL (0.550-1.02) Glomerular Filtration Rate Calc 70 mL/min (>90) BUN/Creatinine Ratio 13.0 (10.0-20.0) Serum Glucose 123 mg/dL (74-106) Calcium Level 9.9 mg/dL (8.7-10.4) Urine Test Negative (Negative) Urine Color Yellow (Yellow) Urine Clarity Clear (Clear) Urine pH 7.5 (5.0-9.0) Urine Specific [place] 1.034 (1.001-1.035) Urine Protein 2+ (Negative) Urine Ketones 2+ (Negative) Urine Blood 1+ /uL (Negative) Urine Nitrite Negative (Negative) Urine Bilirubin Negative (Negative) Urine Urobilinogen Normal mg/dL (Negative) Urine Leukocyte Esterase Negative /uL (Negative) Urine RBC 6 /hpf (0 - 4) Urine WBC 1 /hpf (0 - 5) Urine Squamous Epithelial Cells Few /hpf (<5) Urine Bacteria None seen /hpf (None Seen) Urine Mucus Few (None Seen) Urine Yeast (Budding) Occasional /hpf (None Urine Glucose Normal mg/dL (Normal) Urine Opiates Screen Pos (NEGATIVE) Urine Fentanyl Screen Neg (NEGATIVE) Urine Barbiturates Screen Neg (NEGATIVE) Urine Phencyclidine Screen Neg (NEGATIVE) Urine Amphetamines Screen Neg (NEGATIVE) Urine Benzodiazepines Screen Neg (NEGATIVE) Urine Cocaine Screen Neg (NEGATIVE) Urine Cannabinoids Screen Pos (NEGATIVE) Other Laboratory Tests 07/28/24 06:11 Discharge Statement: "Patient was advised to return to the ER or call 911 if any headaches, dizziness, shortness of breath, chest pain, abdominal pain, bleeding, fevers, or worsening of medical condition. Patient was counseled about treatment plan, medications, possible side effects, patientverbalized understanding. All questions were answered to the best of my ability. This discharge took greater then 30 minutes in planning, reviewing documentation, counseling the patient, and discussing with other team members." ASSESSMENT ASSESSMENT Assessment GI SPANN MD Jul 28, 2024 11:52
[2024-07-28] MEDS ORDERED: METR-344 PO (11:53)
[2024-07-28] MEDS ORDERED: PANT40TA2 PO (11:53)
[2024-07-28] MEDS ORDERED: ZOFR4T PO (11:55)
--- NOTE | 2024-07-28 12:41 | DVHPN2 ---
Eyes: No Pain, No Vision change, No Conjunctivae inflammation, No Eyelid inflammation, No Other, No Redness ENT: No Ear pain, No Ear discharge, No Nose pain, No Nose discharge, No Nose congestion, No Mouth pain, No Mouth swelling, No Throat pain, No Throat swelling, No Other Cardiovascular: No Chest Pain, No Palpitations, No Orthopnea, No Paroxysmal Noc. Dyspnea, No Edema, No Lt Headedness, No Other Respiratory: No Cough, No Dry, No Shortness of breath, No SOB with excertion, No Wheezing, No Hemoptysis, No Pleuritic Pain, No Sputum, No Other Gastrointestinal: Nausea, Vomiting, Abdominal Pain; No Diarrhea, No Constipation, No Melena, No Hematochezia, No Other Genitourinary: No Dysuria, No Frequency, No Incontinence, No Hematuria, No Retention, No Other Musculoskeletal: No other, No neck pain, No shoulder pain, No arm pain, No back pain, No hand pain, No leg pain, No foot pain Skin: No Rash, No Lesions, No Jaundice, No Bruising, No Other Objective Vitals Vital Signs Date Time Temp Pulse Resp B/P (MAP) Pulse Ox O2 Delivery O2 Flow Rate FiO2 07/28/24 12:29 100 19 150/91 07/28/24 05:40 97 07/28/24 03:15 98.4 98.4 07/27/24 15:17 Room Air* 0 21 Intake/Output Intake and Output 07/28/24 06:59 Intake Total 150 ml Balance 150 ml Intake IV Total 150 ml Medications Current Medications Medications Dose Ordered Sig/Elizabeth Route Start Time Stop Time Status Last Admin Dose Admin Diagnostic Test (Pha) 1 strip IQ4HR 07/27/24 20:00 07/28/24 12:32 1 STRIP Insulin Human Regular IQ4HR SC 07/27/24 20:00 07/28/24 00:46 2 UNITS Dextrose 50 ml UD PRN IV 07/27/24 18:15 Sodium Chloride 1,000 ml @ 100 mls/hr Q10H IV 07/27/24 18:15 07/28/24 04:53 100 MLS/HR Lorazepam 0.5 mg Q6HP PRN PO 07/27/24 18:15 Al Hydrox/Mg Hydrox/Simethicone 30 ml Q6HP PRN PO 07/27/24 18:15 Docusate Sodium 100 mg BIDPRN PRN PO 07/27/24 18:15 Acetaminophen 650 mg Q6HP PRN PO 07/27/24 18:15 Temazepam 15 mg QHSP PRN PO 07/27/24 18:15 Acetaminophen/ Hydrocodone Bitart 1 tab Q4HP PRN PO 07/27/24 18:15 Morphine Sulfate 2 mg Q4HPRN PRN IV 07/27/24 18:15 07/28/24 12:29 2 MG Ceftriaxone Sodium 50 ml @ 100 mls/hr DAILY IV 07/28/24 10:00 07/28/24 10:01 100 MLS/HR Metronidazole 100 ml @ 100 mls/hr Q8HR IV 07/27/24 22:00 07/28/24 04:59 100 MLS/HR Ondansetron HCl 4 mg Q6HPRN PRN IV 07/27/24 23:45 07/28/24 10:38 4 MG Metoclopramide HCl 10 mg Q8HPRN PRN IV 07/28/24 12:45 UNV Laboratory Results Laboratory Tests 07/28/24 06:11 Chemistry Test 07/27/24 15:23 07/28/24 06:11 Calcium Level 10.4 mg/dL (8.7-10.4) 9.9 mg/dL (8.7-10.4) Urinalysis Test 07/27/24 15:23 07/27/24 15:25 Urine Color Yellow (Yellow) Urine Clarity Clear (Clear) Urine pH 7.5 (5.0-9.0) Urine Specific [place] 1.034 (1.001-1.035) Urine Protein 2+ (Negative) H Urine Ketones 2+ (Negative) H Urine Blood 1+ /uL (Negative) H Urine Nitrite Negative (Negative) Urine Bilirubin Negative (Negative) Urine Urobilinogen Normal mg/dL (Negative) Urine Leukocyte Esterase Negative /uL (Negative) Urine RBC 6 /hpf (0 - 4) Urine WBC 1 /hpf (0 - 5) Urine Squamous Epithelial Cells Few /hpf (<5) Urine Bacteria None seen /hpf (None Seen) Urine Mucus Few (None Seen) Urine Yeast (Budding) Occasional /hpf (None Urine Glucose Normal mg/dL (Normal) Urine Test Negative (Negative) Assessment/Plan My Orders Orders - GI SPANN MD Procedure Category Date Status Time Metoclopramide PHA 07/28/24 Transmitted Injection (Reglan 12:45 GI SPANN MD Jul 28, 2024 12:41
[2024-07-28] MEDS: METOCLOPRAMIDE HCL 5MG/ml INJ 2ml VIAL IV PRN (13:12)
[2024-07-28] MEDS ORDERED: POTASSIUM CHLORIDE 40 MEQ, LIDOCAINE 1% (LOCAL ANESTH.) 4 ML in SODIUM CHL 0.9% 250 ML IV ONE ×2 (17:00→20:00)
[2024-07-28] MEDS: POTASSIUM CHLORIDE 80 MEQ, LIDOCAINE 1% (LOCAL ANESTH.) 6 ML in SODIUM CHL 0.9% 500 ML IV ONE (19:58)
[2024-07-28 20:00] VITALS: PULSE 96; RESP 18; O2SAT 99
[2024-07-28 21:00] VITALS: BP 146/99; PULSE 96; RESP 18; TEMP 99; O2SAT 99
[2024-07-28] MEDS: METOCLOPRAMIDE HCL 5MG/ml INJ 2ml VIAL IV SCH (21:12)
[2024-07-29] VITALS (8 sets, daily range): BP systolic 106–147; BP diastolic 63–86; PULSE 66–115; RESP 17–20; TEMP 98–98.9; O2SAT 93–100
--- NOTE | 2024-07-29 06:51 | DVHPN2 ---
Subjective The patient is seen and examined at bedside. The patient vomited profusely Reviewed: Care Plan, H&P, Labs, Medications, Previous Orders, Radiology Changes from previous H/P or p: No Changes Eyes: No Pain, No Vision change, No Conjunctivae inflammation, No Eyelid inflammation, No Other, No Redness ENT: No Ear pain, No Ear discharge, No Nose pain, No Nose discharge, No Nose congestion, No Mouth pain, No Mouth swelling, No Throat pain, No Throat swelling, No Other Cardiovascular: No Chest Pain, No Palpitations, No Orthopnea, No Paroxysmal Noc. Dyspnea, No Edema, No Lt Headedness, No Other Respiratory: No Cough, No Dry, No Shortness of breath, No SOB with excertion, No Wheezing, No Hemoptysis, No Pleuritic Pain, No Sputum, No Other Gastrointestinal: Nausea, Vomiting, Abdominal Pain; No Diarrhea, No Constipation, No Melena, No Hematochezia, No Other Genitourinary: No Dysuria, No Frequency, No Incontinence, No Hematuria, No Retention, No Other Musculoskeletal: No other, No neck pain, No shoulder pain, No arm pain, No back pain, No hand pain, No leg pain, No foot pain Skin: No Rash, No Lesions, No Jaundice, No Bruising, No Other Objective Vitals Vital Signs Date Time Temp Pulse Resp B/P (MAP) Pulse Ox O2 Delivery O2 Flow Rate FiO2 07/28/24 05:33 115 17 111/72 07/28/24 05:00 98.2 98 98.2 07/28/24 20:00 Room Air* 0 21 Intake/Output Intake and Output 07/29/24 07:00 Intake Total 1850 ml Output Total 1270 ml Balance 580 ml Intake Oral 500 ml IV Total 1350 ml Output Urine Total 1270 ml # Voids 2 General Appearance: Alert, Oriented X3, Cooperative, No acute distress HEENT: Atraumatic, PERRLA, EOMI, Mucous membr. moist/pink Neck: Supple Lungs: Clear to auscultation, Normal air movement Cardiovascular: Regular rate, Normal S1, Normal S2, No murmurs, Gallops, Rubs Extremities: Normal pulses Neuro: Cranial nerves 3-12 NL Psych/Mental Status: Mental status NL Medications Current Medications Medications Dose Ordered Sig/Elizabeth Route Start Time Stop Time Status Last Admin Dose Admin Dextrose 50 ml UD PRN IV 07/27/24 18:15 Cancel Sodium Chloride 1,000 ml @ 100 mls/hr Q10H IV 07/27/24 18:15 07/28/24 15:14 100 MLS/HR Lorazepam 0.5 mg Q6HP PRN PO 07/27/24 18:15 Al Hydrox/Mg Hydrox/Simethicone 30 ml Q6HP PRN PO 07/27/24 18:15 Docusate Sodium 100 mg BIDPRN PRN PO 07/27/24 18:15 Acetaminophen 650 mg Q6HP PRN PO 07/27/24 18:15 Temazepam 15 mg QHSP PRN PO 07/27/24 18:15 Acetaminophen/ Hydrocodone Bitart 1 tab Q4HP PRN PO 07/27/24 18:15 Morphine Sulfate 2 mg Q4HPRN PRN IV 07/27/24 18:15 07/29/24 05:33 2 MG Ceftriaxone Sodium 50 ml @ 100 mls/hr DAILY IV 07/28/24 10:00 07/28/24 10:01 100 MLS/HR Metronidazole 100 ml @ 100 mls/hr Q8HR IV 07/27/24 22:00 07/29/24 05:31 100 MLS/HR Ondansetron HCl 4 mg Q6HPRN PRN IV 07/27/24 23:45 07/28/24 18:30 4 MG Metoclopramide HCl 10 mg Q8HR IV 07/28/24 21:15 07/29/24 05:32 10 MG Laboratory Results Laboratory Tests 07/28/24 06:11 Urinalysis Test 07/27/24 15:23 07/27/24 15:25 Urine Color Yellow (Yellow) Urine Clarity Clear (Clear) Urine pH 7.5 (5.0-9.0) Urine Specific [place] 1.034 (1.001-1.035) Urine Protein 2+ (Negative) H Urine Ketones 2+ (Negative) H Urine Blood 1+ /uL (Negative) H Urine Nitrite Negative (Negative) Urine Bilirubin Negative (Negative) Urine Urobilinogen Normal mg/dL (Negative) Urine Leukocyte Esterase Negative /uL (Negative) Urine RBC 6 /hpf (0 - 4) Urine WBC 1 /hpf (0 - 5) Urine Squamous Epithelial Cells Few /hpf (<5) Urine Bacteria None seen /hpf (None Seen) Urine Mucus Few (None Seen) Urine Yeast (Budding) Occasional /hpf (None Urine Glucose Normal mg/dL (Normal) Urine Test Negative (Negative) Labs and/or images reviewed: Labs reviewed by me Assessment/Plan Assessment/Plan Intractable nausea and vomiting Possible colitis Cyclic vomiting due to marijuana abuse Hypokalemia Continuing current management. We will add Reglan 10mg IV [id number] PRN for n ausea and vomiting Continuing Zofran 4 mg IV q.4 hours p.r.n. for nausea and vomiting Advised the patient to stop smoking marijuana Replace potassium with 80 mEq of KCl This medical document was created using an electronic medical record system with [employer] computerized dictation system. Although this document has been carefully reviewed, there may still be some phonetic and typographical errors. These areas are purely typographical due to imperfections of the software programs, and do not reflect any compromise in the patient's medical care. Plan discussed with: Patient My Orders Orders - GI SPANN MD Procedure Category Date Status Time * Dietary Consult CONS 07/28/24 Transmitted 15:51 Mrsa Screen TRISTAN 07/28/24 In Process 16:07 Metoclopramide PHA 07/28/24 In Process Injection (Reglan 21:15 Date of Service: Jul 28, 2024 Billing Provider: GI SPANN MD Common Visit Codes: [id number] INP/OBS CARE(HIGH) GI SPANN MD Jul 29, 2024 06:51
[2024-07-29 10:02] LABS: Basophils # (auto) 0 10 ^3/uL (0-0.2); Basophils % (auto) 0.4 % (0.0-2.0); Eosinophils # (auto) 0 10 ^3/uL (0-0.8); Eosinophils % (auto) 0.1 % (0.0-7.0); Hematocrit 41.1 % (36.0-46.0); Hemoglobin 14.2 g/dL (12.2-16.2); Lymphocytes % (auto) 8.5 % (10.0-50.0); Mean Corpuscular Hemoglobin 33.2 pg (28.0-32.0); Mean Corpuscular Hgb Conc. 34.6 g/dL (32.0-36.0); Monocytes # (auto) 0.9 10 ^3/uL (0-1.3); Monocytes % (auto) 8.3 % (0.0-12.0); Neutrophils # (auto) 9.5 10 ^3/uL (1.6-8.6); Neutrophils % (auto) 82.7 % (37.0-80.0); Platelet Count (auto) 326 10^3/uL (140-450); Red Blood Cells 4.28 10^6/uL (4.0-5.20); Red Cell Distribution Width 13.6 % (11.8-14.3); White Blood Cell 11.5 10^3/uL (4.4-10.8)
[2024-07-29 10:11] LABS: Chloride 103 mmol/L (98-107); Potassium 3.7 mmol/L (3.5-5.1); Sodium 137 mmol/L (136-145)
[2024-07-29 10:12] LABS: Anion Gap 6 (5-15); Carbon Dioxide 28 mmol/L (20-31)
[2024-07-29 10:17] LABS: BUN/Creatinine Ratio 12.7 (10.0-20.0); Blood Urea Nitrogen 10 mg/dL (9-23); Glucose 106 mg/dL (74-106)
[2024-07-29] MEDS: SODIUM CHLORIDE 0.9% 1,000 ML IV ONE (12:07)
[2024-07-29] MEDS: HALOPERIDOL LACTATE 5 MG/ML INJ VIAL IM PRN (12:24)
--- NOTE | 2024-07-29 16:00 | DVHPN2 ---
Assessment/Plan Assessment/Plan Progress note Subjective 44-year-old female admitted for intractable vomiting, patient is seen by me today during rounds, requesting if she can take a hot shower. Objective Physical exam Alert, oriented x3 appears uncomfortable dry mucous membrane PERRLA No JVD Clear breath sounds bilaterally S1-S2 Tachycardia Abdomen soft nontender, no organomegaly Moving all four extremities No lower extremity edema Lab hemoglobin 11 potassium 3.7 UDS opiates an cannabis UA with protein ketones and blood Imaging CT AP normal Assessment and plan Intractable nausea and vomiting cannabis hyperemesis syndrome Hypokalemia p.r.n. Haldol 2.5 IM for nausea IV bolus Discontinue Flagyl and ceftriaxone Maalox, Pepcid inform patient to avoid cannabis use Replete electrolytes Diet advanced as tolerated DVT prophylaxis ambulatory Plan discussed with: Patient My Orders Orders - FOREST MOMIN MD Procedure Category Date Status Time Haloperidol Lactate PHA 07/29/24 In Process Injection (Haldol) 11:00 Date of Service: Jul 29, 2024 Billing Provider: FOREST MOMIN MD Common Visit Codes: [id number] INP/OBS CARE(HIGH) FOREST MOMIN MD Jul 29, 2024 16:00
[2024-07-30] VITALS (8 sets, daily range): BP systolic 118–159; BP diastolic 50–97; PULSE 74–112; RESP 16–20; TEMP 97.7–98.9; O2SAT 95–100
[2024-07-30] MEDS: SODIUM CHLORIDE 0.9% 1,000 ML IV ONE (09:01)
--- NOTE | 2024-07-30 09:17 | DVHPN2 ---
Assessment/Plan Assessment/Plan Progress note Subjective 44-year-old female admitted for intractable vomiting, patient is seen by me today during rounds, requesting if she can take a hot shower. Seen by me today during rounds Improved with haldol, still have NV in between, changed diet to clear liquid, 1L NS bolus, add maalox, pepcid and supportive management with hot packs. clear UA but has UTI symptoms, will treat with macrobid Objective Physical exam Alert, oriented x3 appears uncomfortable dry mucous membrane PERRLA No JVD Clear breath sounds bilaterally S1-S2 Tachycardia Abdomen soft nontender, no organomegaly Moving all four extremities No lower extremity edema Lab hemoglobin 11 potassium 3.7 UDS opiates an cannabis UA with protein ketones and blood Imaging CT AP normal Assessment and plan Intractable nausea and vomiting cannabis hyperemesis syndrome Hypokalemia, resolved Dysuria, frequency possible UTI p.r.n. Haldol 2.5 IM for nausea IV bolus Discontinue Flagyl and ceftriaxone Maalox, Pepcid inform patient to avoid cannabis use macrobid Replete electrolytes Diet advanced as tolerated DVT prophylaxis ambulatory Plan discussed with: Patient My Orders Orders - FOREST MOMIN MD Procedure Category Date Status Time Haloperidol Lactate PHA 07/29/24 In Process Injection (Haldol) 11:00 Sodium Chloride 0.9% PHA 07/30/24 In Process 08:30 Clear Liq Diet DIET 07/30/24 Transmitted Breakfast Nitrofurantoin PHA 07/30/24 Transmitted Capsule (Macrobid) 10:00 Date of Service: Jul 30, 2024 Billing Provider: FOREST MOMIN MD Common Visit Codes: [id number] INP/OBS CARE(HIGH) FOREST MOMIN MD Jul 30, 2024 09:17
[2024-07-30] MEDS: MAALOX PLUS or MAALOX 30 ML PO SCH (10:33)
[2024-07-30] MEDS: NITROFURANTOIN 100 mg CAP PO SCH (10:33)
[2024-07-30] MEDS: FAMOTIDINE 20 MG TAB PO SCH (10:33)
[2024-07-31 01:00] VITALS: BP 152/93; PULSE 91; RESP 20; TEMP 99.1; O2SAT 97
[2024-07-31 05:00] VITALS: BP 156/95; PULSE 95; RESP 20; TEMP 98.7; O2SAT 96
[2024-07-31 06:13] LABS: Basophils # (auto) 0.1 10 ^3/uL (0-0.2); Basophils % (auto) 0.9 % (0.0-2.0); Eosinophils # (auto) 0.2 10 ^3/uL (0-0.8); Hematocrit 40.2 % (36.0-46.0); Hemoglobin 14.1 g/dL (12.2-16.2); Lymphocytes # (auto) 1.4 10 ^3/uL (0.4-5.4); Lymphocytes % (auto) 23.5 % (10.0-50.0); Mean Corpuscular Hemoglobin 33.6 pg (28.0-32.0); Mean Corpuscular Hgb Conc. 35.1 g/dL (32.0-36.0); Mean Corpuscular Volume 95.7 fL (80.0-100.0); Monocytes # (auto) 0.6 10 ^3/uL (0-1.3); Monocytes % (auto) 10.6 % (0.0-12.0); Neutrophils # (auto) 3.8 10 ^3/uL (1.6-8.6); Nucleated Red Blood Cells % 0.2 %; Platelet Count (auto) 321 10^3/uL (140-450); Red Cell Distribution Width 13.2 % (11.8-14.3); White Blood Cell 6.1 10^3/uL (4.4-10.8)
[2024-07-31 06:21] LABS: Carbon Dioxide 28 mmol/L (20-31); Chloride 102 mmol/L (98-107)
[2024-07-31 06:22] LABS: Anion Gap 5 (5-15)
[2024-07-31 06:23] LABS: Calcium 9.1 mg/dL (8.7-10.4)
[2024-07-31 06:27] LABS: Glucose 104 mg/dL (74-106)
[2024-07-31 06:28] LABS: Magnesium 2.1 mg/dL (1.6-2.6)
[2024-07-31 06:30] LABS: Phosphorus 2.6 mg/dL (2.4-5.1)
[2024-07-31 06:37] LABS: BUN/Creatinine Ratio 10.1 (10.0-20.0); Blood Urea Nitrogen 7 mg/dL (9-23); Potassium 3.4 mmol/L (3.5-5.1); Sodium 135 mmol/L (136-145)
[2024-07-31 08:25] VITALS: PULSE 98; RESP 18; O2SAT 98
[2024-07-31 09:00] VITALS: BP 138/95; PULSE 98; RESP 18; TEMP 98.1; O2SAT 98
[2024-07-31] MEDS ORDERED: FAMO-161 PO (11:31)
[2024-07-31] MEDS ORDERED: ALUMSUS16 PO (11:31)
[2024-07-31 13:00] VITALS: BP 150/93; PULSE 88; RESP 20; TEMP 98; O2SAT 97
--- NOTE | 2024-07-31 14:48 | DVHDS2 ---
Discharge Summary Date of Admission Jul 27, 2024 at 18:06 Date of Discharge: Jul 28, 2024 Labs/Diagnostic Data: Laboratory Results Test 07/31/24 05:27 07/28/24 15:34 07/27/24 15:25 07/27/24 15:23 White Blood Count 6.1 10^3/uL (4.4-10.8) Red Blood Count 4.20 10^6/uL (4.0-5.20) Hemoglobin 14.1 g/dL (12.2-16.2) Hematocrit 40.2 % (36.0-46.0) Mean Corpuscular Volume 95.7 fL (80.0-100.0) Mean Corpuscular Hemoglobin 33.6 pg (28.0-32.0) Mean Corpuscular Hemoglobin Concent 35.1 g/dL (32.0-36.0) Red Cell Distribution Width 13.2 % (11.8-14.3) Platelet Count 321 10^3/uL (140-450) Mean Platelet Volume 7.4 fL (6.9-10.8) Neutrophils (%) (Auto) 62.0 % (37.0-80.0) Lymphocytes (%) (Auto) 23.5 % (10.0-50.0) Monocytes (%) (Auto) 10.6 % (0.0-12.0) Eosinophils (%) (Auto) 3.0 % (0.0-7.0) Basophils (%) (Auto) 0.9 % (0.0-2.0) Neutrophils # (Auto) 3.8 10 ^3/uL (1.6-8.6) Lymphocytes # (Auto) 1.4 10 ^3/uL (0.4-5.4) Monocytes # (Auto) 0.6 10 ^3/uL (0-1.3) Eosinophils # (Auto) 0.2 10 ^3/uL (0-0.8) Basophils # (Auto) 0.1 10 ^3/uL (0-0.2) Nucleated Red Blood Cells 0.2 % Sodium Level 135 mmol/L (136-145) Potassium Level 3.4 mmol/L (3.5-5.1) Chloride Level 102 mmol/L (98-107) Carbon Dioxide Level 28 mmol/L (20-31) Anion Gap 5 (5-15) Blood Urea Nitrogen 7 mg/dL (9-23) Creatinine 0.69 mg/dL (0.550-1.02) Glomerular Filtration Rate Calc 108 mL/min (>90) BUN/Creatinine Ratio 10.1 (10.0-20.0) Serum Glucose 104 mg/dL (74-106) Calcium Level 9.1 mg/dL (8.7-10.4) Phosphorus Level 2.6 mg/dL (2.4-5.1) Magnesium Level 2.1 mg/dL (1.6-2.6) POC Glucose 156 mg/dl (70-106) Urine Test Negative (Negative) Urine Color Yellow (Yellow) Urine Clarity Clear (Clear) Urine pH 7.5 (5.0-9.0) Urine Specific [place] 1.034 (1.001-1.035) Urine Protein 2+ (Negative) Urine Ketones 2+ (Negative) Urine Blood 1+ /uL (Negative) Urine Nitrite Negative (Negative) Urine Bilirubin Negative (Negative) Urine Urobilinogen Normal mg/dL (Negative) Urine Leukocyte Esterase Negative /uL (Negative) Urine RBC 6 /hpf (0 - 4) Urine WBC 1 /hpf (0 - 5) Urine Squamous Epithelial Cells Few /hpf (<5) Urine Bacteria None seen /hpf (None Seen) Urine Mucus Few (None Seen) Urine Yeast (Budding) Occasional /hpf (None Urine Glucose Normal mg/dL (Normal) Urine Opiates Screen Pos (NEGATIVE) Urine Fentanyl Screen Neg (NEGATIVE) Urine Barbiturates Screen Neg (NEGATIVE) Urine Phencyclidine Screen Neg (NEGATIVE) Urine Amphetamines Screen Neg (NEGATIVE) Urine Benzodiazepines Screen Neg (NEGATIVE) Urine Cocaine Screen Neg (NEGATIVE) Urine Cannabinoids Screen Pos (NEGATIVE) Other Laboratory Tests 07/31/24 05:27 Brief Hx & Hospital Course: 44-year-old female admitted for abdominal pain intractable vomiting, on my assessment patient smokes cannabis and reported improvement with hot bath, switch anti emetic to Haldol, started on clear liquid diet. Patient now able to tolerate feeding. Patient also had some dysuria, restarted on Macrobid. Stable to discharge home Condition at Discharge: Good Final Diagnosis/Problems List [facility] Discharge Disposition: Home Discharge Instruct/Medications Diet: Regular Diet comment: avoid canabinoids Activity: No Restrictions, As Tolerated Follow Up/Referral: pcp 1-2 weeks Medications: pepcid maalox 39 Discharge Statement: "Patient was advised to return to the ER or call 911 if any headaches, dizziness, shortness of breath, chest pain, abdominal pain, bleeding, fevers, or worsening of medical condition. Patient was counseled about treatment plan, medications, possible side effects, patientverbalized understanding. All questions were answered to the best of my ability. This discharge took greater then 30 minutes in planning, reviewing documentation, counseling the patient, and discussing with other team members." ASSESSMENT ASSESSMENT Assessment Intractable nausea and vomiting cannabis hyperemesis syndrome Hypokalemia, resolved Dysuria, frequency possible UTI Date of Service: Jul 31, 2024 Billing Provider: FOREST MOMIN MD Common Visit Codes: [id number] DISCH DAY >30min FOREST MOMIN MD Jul 31, 2024 14:48
[2024-07-31 15:17] VITALS: BP 150/93; PULSE 88; RESP 20; TEMP 98; O2SAT 97
== END 2024-07-31 16:00 | disposition home or self-care (01) | DRG 249 ==
LOC: ER 13:38 → EDBD 13:38 → OVERFLOW 18:06 → WEST WING 07-28 17:13
PROVIDERS: ADMIT Hospitalist; ATTEND Student in an Organized Health Care Education/Training Program
DX: A09 Infectious gastroenteritis and colitis, unspecified (principal); E87.6 Hypokalemia; R11.2 Nausea with vomiting, unspecified; N39.0 Urinary tract infection, site not specified; F10.10 Alcohol abuse, uncomplicated; F17.210 Nicotine dependence, cigarettes, uncomplicated; F12.10 Cannabis abuse, uncomplicated; Y90.9 Presence of alcohol in blood, level not specified; Z90.710 Acquired absence of both cervix and uterus; F12.19 Cannabis abuse with unspecified cannabis-induced disorder
CPT/HCPCS: 36415; 74176; 80048; 80307; 81001; 81025; 82962; 83735; 84100; 85025; 87081; 96365; 96375; 99291; G0378; J1815; J2003; J2405; J3490

== ENCOUNTER 2024-12-03 09:44 | Inpatient (IN) | payer MEDICAID ==
[~2024-12-03] VITALS: Ht 165.1 cm; Wt 70.0 kg
[~2024-12-03 09:44] MED LIST: ALUMSUS16 PO; FAMO-161 PO
--- NOTE | 2024-12-03 10:34 | ED.PDOC ---
GI ASSESSMENT HPI Comments 44Y F with PMHx partial hysterectomy, appendectomy, and hernia repair presents to ED with chief complaint RUQ abd pain x2days with nausea, vomiting, and rt flank pain. Pt states RUQ pain is sharp and burning, and is constantly present. Current pain level 7/10. Pt smokes marijuana everyday. No other symptoms or history reported. Chief Complaint: Abdominal Pain Time Seen by MD: 09:51 Primary Care Provider: NONE Reviewed Notes: Nurses Notes, Medications, Allergies Allergies: Coded Allergies: NO KNOWN ALLERGIES (Unverified , 07/06/24) Home Meds Active Scripts Alum & Mag Hydrox-Simethicone (Maalox Multi Symptom Maxi) Symp Max Shana, 1 MAX PO QID PRN for 10 Days, #1200 ML Prov:FOREST MOMIN MD 07/31/24 Famotidine (Pepcid AC) 20 Mg Tab, 20 MG PO BID for 30 Days, #60 TAB Prov:FOREST MOMIN MD 07/31/24 Information Source: Patient Mode of Arrival: Ambulatory Timing: Days Duration: Since onset Prehospital treatment: None Quality: Burning, Sharp Vomitus: Watery Stool: Normal Severity: Moderate Recent: None Recent Hx of: None Pain Location: RUQ, Other (rt flank) Modifying Factors: Nothing Associated sign and symptoms: Nausea, Vomiting, Abdominal Pain Past Medical History PAST MEDICAL HISTORY: Denies Surgical History: Appendectomy, Hernia Repair, Hysterectomy, Tubal Ligation TRANSMITTER CHIEF History: No Pertinent TRANSMITTER CHIEF History Family History Family History: Family hx of heart estrella Social History Smoker: Cigarettes Alcohol: Heavy Drugs: Marijuana Lives In: Home Constitutional: denies: chills, diaphoresis, fatigue, fever, malaise, sweats, weakness, others EENTM: denies: blurred vision, double vision, ear bleeding, ear discharge, ear drainage, ear pain, ear ringing, eye pain, eye redness, hearing loss, mouth pain, mouth swelling, nasal discharge, nose bleeding, nose congestion, nose pain, photophobia, tearing, throat pain, throat swelling, voice changes, others Respiratory: denies: cough, hemoptysis, orthopnea, SOB at rest, shortness of breath, SOB with excertion, stridor, wheezing, others Cardiovascular: denies: chest pain, dizzy spells, diaphoresis, Dyspnea on exertion, edema, irregular heart beat, left arm pain, lightheadedness, palpitations, PND, syncope, others Gastrointestinal: reports: abdominal pain, nausea, vomiting; denies: abdomen distended, blood streaked bowels, constipated, diarrhea, dysphagia, difficulty swallowing, hematemesis, melena, poor appetite, poor fluid intake, rectal bleeding, rectal pain, others Genitourinary: reports: flank pain (right); denies: abnormal vagina bleeding, burning, dyspareunia, dysuria, frequency, hematuria, incontinence, pain, , vagina discharge, urgency, others Neurological: denies: dizziness, fainting, headache, left sided numbness, left sided weakness, numbness, paresthesia, pre-existing deficit, right sided numbness, right sided weakness, seizure, speech problems, tingling, tremors, weakness, others Musculoskeletal: denies: back pain, gout, joint pain, joint swelling, muscle pain, muscle stiffness, neck pain, others Integumetry: denies: bruises, change in color, change in hair/nails, dryness, laceration, lesions, lumps, rash, wounds, others Allergic/Immunocompromised: denies: Difficulty Healing, Frequent Infections, Hives, Itching, others Hematologic/Lymphatic: denies: anemia, blood clots, easy bleeding, easy bruising, swollen glands, others Endocrine: denies: excessive hunger, excessive sweating, excessive thirst, excessive urination, flushing, intolerance to cold, intolerance to heat, unexplained weight gain, unexplained weight loss, others Psychiatric: denies: anxiety, bipolar disorder, depression, hopeless, panic disorder, schizophrenia, sleepless, suicidal, others All Other Systems: Reviewed and Negative Physical Exam General Appearance: Moderate Distress, Normal HEENT: Normal ENT Inspection, Pharynx Normal, TMs Normal Neck: Full Range of Motion, Non-Tender, Normal, Normal Inspection Respiratory: Chest Non-Tender, Lungs Clear, No Accessory Muscle Use, No Respiratory Distress, Normal Breath Sounds Cardiovascular: No Edema, No JVD, No Murmur, No Gallop, Normal Peripheral Pulses, Regular Rate/Rhythm Breast Exam: Deferred Gastrointestinal: No Organomegaly, No Pulsatile Mass, RUQ, Tenderness Genitalia: Deferred Pelvic: Deferred Rectal: Deferred Extremities: No calf tenderness, Normal capillary refill, Normal inspection, Normal range of motion, Non-tender, No pedal edema Musculoskeletal : Apperance: Normal Neurologic: Alert, manager environmental II-XII nml as Tested, No Motor Deficits, Normal Affect, Normal Mood, No Sensory Deficits Cerebellar Function: NOT DONE Reflexes: NOT DONE Skin: Dry, Normal Color, Warm Lymphatic: No Adenopathy Was a procedure done? Was a procedure done?: No GI differential Dx Differential Diagnosis: Cholecystitis, Diverticular disease, Gastritis/PUD, Gastroenteritis, Dehydration, Electrolyte Imbalance, Food Poisoning, , Bacterial, Viral X-Ray, Labs, Meds, VS Vital Signs Date Time Temp Pulse Resp B/P (MAP) Pulse Ox O2 Delivery O2 Flow Rate FiO2 12/03/24 17:10 100 19 111/72 12/03/24 16:12 92 12/03/24 15:44 72 18 164/93 12/03/24 15:41 98.0 72 18 164/93 (116) 100 98.0 12/03/24 15:41 72 18 100 Room Air* 0 21 12/03/24 14:00 72 18 151/90 (110) 100 12/03/24 12:21 98.4 70 18 180/75 (110) 97 98.4 12/03/24 09:50 97.0 70 24 173/91 (118) 100 97.0 Lab Test 12/03/24 15:22 12/03/24 10:10 12/03/24 09:53 Range/Units POC Glucose 109 H 70-106 mg/dl White Blood Count 9.7 4.4-10.8 10^3/uL Red Blood Count 5.20 4.0-5.20 10^6/uL Hemoglobin 17.3 H 12.2-16.2 g/dL Hematocrit 51.4 H 36.0-46.0 % Mean Corpuscular Volume 98.8 80.0-100.0 fL Mean Corpuscular Hemoglobin 33.3 H 28.0-32.0 pg Mean Corpuscular Hemoglobin Concent 33.7 32.0-36.0 g/dL Red Cell Distribution Width 14.4 H 11.8-14.3 % Platelet Count 445 140-450 10^3/uL Mean Platelet Volume 7.5 6.9-10.8 fL Neutrophils (%) (Auto) 83.4 H 37.0-80.0 % Lymphocytes (%) (Auto) 11.1 10.0-50.0 % Monocytes (%) (Auto) 5.0 0.0-12.0 % Eosinophils (%) (Auto) 0.1 0.0-7.0 % Basophils (%) (Auto) 0.4 0.0-2.0 % Neutrophils # (Auto) 8.1 1.6-8.6 10 ^3/uL Lymphocytes # (Auto) 1.1 0.4-5.4 10 ^3/uL Monocytes # (Auto) 0.5 0-1.3 10 ^3/uL Eosinophils # (Auto) 0 0-0.8 10 ^3/uL Basophils # (Auto) 0 0-0.2 10 ^3/uL Nucleated Red Blood Cells 0.1 % Sodium Level 139 136-145 mmol/L Potassium Level 3.0 L 3.5-5.1 mmol/L Chloride Level 103 98-107 mmol/L Carbon Dioxide Level 22 20-31 mmol/L Anion Gap 14 5-15 Blood Urea Nitrogen < 5 L 9-23 mg/dL Creatinine 0.75 0.550-1.02 mg/dL Glomerular Filtration Rate Calc 99 >90 mL/min BUN/Creatinine Ratio 6.7 L 10.0-20.0 Serum Glucose 130 H 74-106 mg/dL Calcium Level 10.1 8.7-10.4 mg/dL Total Bilirubin 0.6 0.2-1.0 mg/dL Aspartate Amino Transferase (AST) 23 13-40 U/L Alanine Aminotransferase (ALT) 24 7-40 U/L Alkaline Phosphatase 64 46-116 U/L Total Protein 8.7 H 5.7-8.2 g/dL Albumin 4.6 3.2-4.8 g/dL Lipase 27 12-53 U/L Urine Color Light-yellow Yellow Urine Clarity Clear Clear Urine pH 8.0 5.0-9.0 Urine Specific [place] 1.016 1.001-1.035 Urine Protein Trace H Negative Urine Ketones 3+ H Negative Urine Blood Negative Negative /uL Urine Nitrite Negative Negative Urine Bilirubin Negative Negative Urine Urobilinogen Normal Negative mg/dL Urine Leukocyte Esterase Negative Negative /uL Urine RBC 2 0 - 4 /hpf Urine Microscopic WBC 7 H 0-5 /HPF Urine Squamous Epithelial Cells Few <5 /hpf Urine Bacteria None seen None Seen /hpf Urine Glucose Trace Normal mg/dL Current Medications Medications (Trade) Dose Ordered Sig/Elizabeth Route Start Time Stop Time Status Last Admin Sodium Chloride 1,000 ml @ 1,000 mls/hr Q1H ONCE IV 12/03/24 10:00 12/03/24 10:59 DC 12/03/24 13:04 Ondansetron HCl (Zofran) 4 mg ONCE ONCE IV 12/03/24 10:00 12/03/24 10:01 DC 12/03/24 13:09 Pantoprazole Sodium (Protonix) 40 mg ONCE ONCE IV 12/03/24 10:00 12/03/24 10:01 DC 12/03/24 13:09 Ketorolac Tromethamine (Toradol Injection) 15 mg ONCE ONCE IV 12/03/24 10:00 12/03/24 10:01 DC 12/03/24 13:09 Haloperidol Lactate (Haldol) 10 mg ONCE ONCE IM 12/03/24 15:15 12/03/24 15:17 DC 12/03/24 15:43 Sodium Chloride 1,000 ml @ 1,000 mls/hr Q1H ONCE IV 12/03/24 15:15 12/03/24 16:14 DC 12/03/24 15:44 Morphine Sulfate 4 mg ONCE ONCE IV 12/03/24 15:15 12/03/24 15:17 DC 12/03/24 15:44 Ondansetron HCl (Zofran) 4 mg ONCE ONCE IV 12/03/24 15:15 12/03/24 15:17 DC 12/03/24 15:45 Time of 1ST Reevaluation: 10:21 Reevaluation 1ST: Unchanged Patient Education/Counseling: Diagnosis, Treatment Family Education/Counseling: No Family Present Departure 1 Departure Time of Disposition: 13:30 (Patient likely with viral gastroenteritis. We will discharge patient home with outpatient follow up) Impression: Primary Impression: Intractable abdominal pain Additional Impression: Nausea and vomiting Qualified Codes: R11.2 - Nausea with vomiting, unspecified Disposition: ADMITTED INPATIENT Admit to: Med Surg Condition: Serious Critical Care Note Critical Care Time?: Yes Critical care comment: Intractable abdominal pain Authorized and Performed by: Shmuel Lee MD Total critical care time: Approximately 34 minutes Due to a high probability of clinically significant, life threatening deterioration, the patient required my highest level of preparedness to intervene emergently and I personally spent this critical care time directly and personally managing the patient. This critical care time included obtaining a history; examining the patient; pulse oximetry; ordering and review of studies; arranging urgent treatment with development of a management plan; evaluation of patient's response to treatment; frequent reassessment; and, discussions with other providers. This critical care time was performed to assess and manage the high probability of imminent, life-threatening deterioration that could result in multi-organ failure. It was exclusive of separately billable procedures and treating other patients and teaching time. Please see my other sections and the rest of the note for further information on patient assessment and treatment. Stability Stability form required: No Heart Score Heart Score: Heart Score Response (Comments) Value History N/A 0 EKG N/A 0 Age N/A 0 Risk Factors N/A 0 Troponin N/A 0 Total 0 I personally scribed for SHMUEL LEE MD ([facility]) on 12/03/24 at 10:34. Electronically submitted by Ana Veloz ([employer]). I personally scribed for SHMUEL LEE MD ([email or web address]) on 12/03/24 at 13:40. Electronically submitted by Ana Veloz ([employer]). SHMUEL LEE MD Dec 03, 2024 10:34
[2024-12-03 10:38] LABS: Basophils # (auto) 0 10 ^3/uL (0-0.2); Basophils % (auto) 0.4 % (0.0-2.0); Eosinophils # (auto) 0 10 ^3/uL (0-0.8); Eosinophils % (auto) 0.1 % (0.0-7.0); Hematocrit 51.4 % (36.0-46.0); Hemoglobin 17.3 g/dL (12.2-16.2); Lymphocytes # (auto) 1.1 10 ^3/uL (0.4-5.4); Lymphocytes % (auto) 11.1 % (10.0-50.0); Mean Corpuscular Hemoglobin 33.3 pg (28.0-32.0); Mean Corpuscular Hgb Conc. 33.7 g/dL (32.0-36.0); Mean Corpuscular Volume 98.8 fL (80.0-100.0); Monocytes # (auto) 0.5 10 ^3/uL (0-1.3); Neutrophils # (auto) 8.1 10 ^3/uL (1.6-8.6); Neutrophils % (auto) 83.4 % (37.0-80.0); Nucleated Red Blood Cells % 0.1 %; Platelet Count (auto) 445 10^3/uL (140-450); Red Cell Distribution Width 14.4 % (11.8-14.3); White Blood Cell 9.7 10^3/uL (4.4-10.8)
[2024-12-03 10:53] LABS: Alanine Aminotransferase 24 U/L (7-40); Albumin 4.6 g/dL (3.2-4.8); Alkaline Phosphatase 64 U/L (46-116); Anion Gap 14 (5-15); Aspartate Aminotransferase 23 U/L (13-40); BUN/Creatinine Ratio 6.7 (10.0-20.0); Blood Urea Nitrogen < 5 mg/dL (9-23); Calcium 10.1 mg/dL (8.7-10.4); Carbon Dioxide 22 mmol/L (20-31); Chloride 103 mmol/L (98-107); Glucose 130 mg/dL (74-106); Lipase 27 U/L (12-53); Sodium 139 mmol/L (136-145); Total Protein 8.7 g/dL (5.7-8.2)
[2024-12-03 10:54] LABS: Bilirubin, Total 0.6 mg/dL (0.2-1.0)
[2024-12-03 11:02] LABS: Urine Bacteria None Seen /hpf (None Seen)
[2024-12-03 11:22] LABS: Urine Blood Negative /uL (Negative); Urine Clarity Clear (Clear); Urine Color Light-Yellow (Yellow); Urine Protein, UAD TRACE (Negative); Urine Specific Gravity 1.016 (1.001-1.035); Urine Squamous Epithelial Cell FEW /hpf (<5); Urine Urobilinogen Normal (Negative); Urine WBC 7 /HPF (0-5)
[2024-12-03] MEDS: SODIUM CHLORIDE 0.9% 1,000 ML IV ONE ×2 (13:04→15:44)
[2024-12-03] MEDS: PANTOPRAZOLE 40 MG/10 ML VIAL INJ IV ONE (13:09)
[2024-12-03] MEDS: KETOROLAC TROMETH 30 MG/ML 1ML VIAL IV ONE (13:09)
[2024-12-03] MEDS: ONDANSETRON HCL 4 MG/2 ML VIAL IV ONE ×2 (13:09→15:45)
[2024-12-03 15:41] VITALS: PULSE 72; RESP 18; O2SAT 100
[2024-12-03] MEDS: HALOPERIDOL LACTATE 5 MG/ML INJ VIAL IM ONE (15:43)
[2024-12-03] MEDS: MORPHINE SULFATE 4 MG/ML SYR/VIAL IV ONE (15:44)
[2024-12-03] MEDS: IOHEXOL 300 MG/ML 100ML BOTTLE IJ ONE (16:10)
--- NOTE | 2024-12-03 17:56 | DVH ---
Procedure: CT CT AB PEL WITH IV CON ONLY 12/03/2024 03:56 PM Indication: severe epigastric pain Comparison Study: None Technique: Axial images were obtained and reformatted in coronal and sagittal planes. All CT scans at this medical facility are performed using dose modulation techniques as appropriate to a performed e xam including the following: Automated exposure control was utilized; adjustment of the MA and/or KV according to patient size; and use of iterative reconstruction technique. CT Dose: CTDI volume is 8.5 4 mGy. Dose-length product is 441.05 mGy*cm FINDINGS: Lower Chest: Unremarkable. Hepatobiliary: Mild hepatomegaly. A subcentimeter cyst is seen in the right hepatic lobe. No enhancin g lesions identified. No intrahepatic or extrahepatic ductal dilatation. Spleen: Unremarkable. Pancreas: Unremarkable. Adrenal Glands: Unremarkable. tract: The kidneys are normal in size bilaterally without hydronephrosis or nephrolithiasis. A sub centimeter focus of air noted in the urinary bladder. No bladder wall thickening or calculi. GI tract: A small sliding hiatal hernia noted. Mild distal esophageal wall thickening. There is mild gastric fundus wall thickening No evidence of small bowel obstruction. The large bowel is unremarkabl e. Suggestion of appendectomy. Lymphatics: No mesenteric, retroperitoneal or periportal lymphadenopathy. Vasculature: The abdominal aorta is normal in caliber. Pelvic Organs: The uterus is surgically absent. No adnexal lesion is identified. Bones/soft tissues: No acute abnormality. Tiny fat containing supraumbilical hernia with a subcentime ter neck. Other: None. IMPRESSION: 1. Small sliding hiatal hernia mild distal esophageal wall circumferential thickening that may reflec t esophagitis. In addition, there is mild thickening and hyperemia of gastric fundus wall that may r eflect gastritis. Slightly dense fluid noted in the lumen of the fundus that could be ingested materi al but if there is hematemesis, this may reflect hemorrhage. 2. Subcentimeter focus of air in the bladder lumen may reflect recent instrumentation. Correlate with history of catheterization. The differential diagnosis includes fistula, which seems less likely as no bladder wall inflammation adjacent inflamed bowel noted.
[2024-12-03 19:10] VITALS: PULSE 123; RESP 18; O2SAT 100
--- NOTE | 2024-12-03 23:42 | DVHHPRES ---
History of Present Illness Resident Creating Document: ELOINA FORRESTER RESIDENT History of Present Illness Patient is a 44-year-old female with past medical history of asthma who comes in due to abdominal pain. According to the patient, yesterday on 12/02/2024 she started experiencing an abdominal pain which she describes as sharp, stabbing, constant and 8/10 in intensity without any exacerbating factors and relieved by vomiting. Patient notes that a day prior to the onset of pain she had turkey and cheese sandwich. Patient also notes that 2 days ago she was at a constitution party and she believes her coffee was spiked with methamphetamine after which he started experiencing abdominal pain and vomiting. Patient notes she had multiple episodes of vomiting yesterday, unable to quantify it, patient does notes seeing blood in her vomitus which she describes as bright red. CT abdomen pelvis showed Small sliding hiatal hernia mild distal esophageal wall circumferential thickening that may reflect esophagitis. In addition, there is mild thickening and hyperemia of gastric fundus wall that may reflect gastritis. Slightly dense fluid noted in the lumen of the fundus that could be ingested material but if there is hematemesis, this may reflect hemorrhage. On review of systems patient is complaining of nausea and vomiting. Past Medical History Asthma Past Surgical History Partial hysterectomy, appendectomy, hernia repair surgery Past Social History Smoking: Quit 2 years ago prior to that was smoking 5 cigarettes per day for 10 years Alcohol: Quit 2 weeks ago, prior to that was drinking daily 2 drinks per day of vodka Drugs: Smokes marijuana daily, 1 joint per day Review of Systems Constitutional: No: Fever, Chills, Sweats, Weakness, Malaise, Other Eyes: No: Pain, Vision change, Conjunctivae inflammation, Eyelid inflammation, Other, Redness ENT: No: Ear pain, Ear discharge, Nose pain, Nose discharge, Nose congestion, Mouth pain, Mouth swelling, Throat pain, Throat swelling, Other Respiratory: No: Cough, Dry, Shortness of breath, SOB with excertion, Wheezing, Hemoptysis, Pleuritic Pain, Sputum, Wheezing, Other Cardiovascular: No: Chest Pain, Palpitations, Orthopnea, Paroxysmal Noc. Dyspnea, Edema, Lt Headedness, Other Gastrointestinal: Nausea, Vomiting, Abdominal Pain; No: Diarrhea, Constipation, Melena, Hematochezia, Other Genitourinary: No Dysuria, No Frequency, No Incontinence, No Hematuria, No Retention, No Other Musculoskeletal: No: other, neck pain, shoulder pain, arm pain, back pain, hand pain, leg pain, foot pain Skin: No: Rash, Lesions, Jaundice, Bruising, Other Neurological: No: Weakness, Numbness, Incoordination, Change in speech, Confusion, Seizures, Other Allergies: Coded Allergies: NO KNOWN ALLERGIES (Unverified , 07/06/24) Exam Vital Signs Vital Signs Date Time Temp Pulse Resp B/P (MAP) Pulse Ox O2 Delivery O2 Flow Rate FiO2 12/03/24 22:00 97 16 108/57 (74) 98 12/03/24 20:00 97.8 97.8 12/03/24 19:10 Room Air* 0 21 General Appearance: Alert, Oriented X3, Cooperative, No acute distress HEENT: Atraumatic, Other (Bilateral constricted pupils noted. Dry mucous membranes noted.) Respiratory: Clear to auscultation, Normal air movement Cardiovascular: Regular rate, Normal S1, Normal S2, No murmurs Abdominal: Normal bowel sounds, Other (Right flank pain) Extremities: No edema Skin: No rashes, No significant lesion Neuro: Normal speech Psych/Mental Status: Mental status NL, Mood NL Labs/Xrays Labs Test 12/03/24 15:22 12/03/24 10:10 12/03/24 09:53 Range/Units POC Glucose 109 H 70-106 mg/dl White Blood Count 9.7 4.4-10.8 10^3/uL Red Blood Count 5.20 4.0-5.20 10^6/uL Hemoglobin 17.3 H 12.2-16.2 g/dL Hematocrit 51.4 H 36.0-46.0 % Mean Corpuscular Volume 98.8 80.0-100.0 fL Mean Corpuscular Hemoglobin 33.3 H 28.0-32.0 pg Mean Corpuscular Hemoglobin Concent 33.7 32.0-36.0 g/dL Red Cell Distribution Width 14.4 H 11.8-14.3 % Platelet Count 445 140-450 10^3/uL Mean Platelet Volume 7.5 6.9-10.8 fL Neutrophils (%) (Auto) 83.4 H 37.0-80.0 % Lymphocytes (%) (Auto) 11.1 10.0-50.0 % Monocytes (%) (Auto) 5.0 0.0-12.0 % Eosinophils (%) (Auto) 0.1 0.0-7.0 % Basophils (%) (Auto) 0.4 0.0-2.0 % Neutrophils # (Auto) 8.1 1.6-8.6 10 ^3/uL Lymphocytes # (Auto) 1.1 0.4-5.4 10 ^3/uL Monocytes # (Auto) 0.5 0-1.3 10 ^3/uL Eosinophils # (Auto) 0 0-0.8 10 ^3/uL Basophils # (Auto) 0 0-0.2 10 ^3/uL Nucleated Red Blood Cells 0.1 % Sodium Level 139 136-145 mmol/L Potassium Level 3.0 L 3.5-5.1 mmol/L Chloride Level 103 98-107 mmol/L Carbon Dioxide Level 22 20-31 mmol/L Anion Gap 14 5-15 Blood Urea Nitrogen < 5 L 9-23 mg/dL Creatinine 0.75 0.550-1.02 mg/dL Glomerular Filtration Rate Calc 99 >90 mL/min BUN/Creatinine Ratio 6.7 L 10.0-20.0 Serum Glucose 130 H 74-106 mg/dL Calcium Level 10.1 8.7-10.4 mg/dL Total Bilirubin 0.6 0.2-1.0 mg/dL Aspartate Amino Transferase (AST) 23 13-40 U/L Alanine Aminotransferase (ALT) 24 7-40 U/L Alkaline Phosphatase 64 46-116 U/L Total Protein 8.7 H 5.7-8.2 g/dL Albumin 4.6 3.2-4.8 g/dL Lipase 27 12-53 U/L Urine Color Light-yellow Yellow Urine Clarity Clear Clear Urine pH 8.0 5.0-9.0 Urine Specific [place] 1.016 1.001-1.035 Urine Protein Trace H Negative Urine Ketones 3+ H Negative Urine Blood Negative Negative /uL Urine Nitrite Negative Negative Urine Bilirubin Negative Negative Urine Urobilinogen Normal Negative mg/dL Urine Leukocyte Esterase Negative Negative /uL Urine RBC 2 0 - 4 /hpf Urine Microscopic WBC 7 H 0-5 /HPF Urine Squamous Epithelial Cells Few <5 /hpf Urine Bacteria None seen None Seen /hpf Urine Glucose Trace Normal mg/dL Assessment/Plan Assessment/Plan Acute intractable abdominal pain with vomiting Hematemesis History of cannabis hyperemesis syndrome - CT abdomen pelvis: Small sliding hiatal hernia mild distal esophageal wall circumferential thickening that may reflect esophagitis. In addition, there is mild thickening and hyperemia of gastric fundus wall that may reflect gastritis. Slightly dense fluid noted in the lumen of the fundus that could be ingested material but if there is hematemesis, this may reflect hemorrhage. Subcentimeter focus of air in the bladder lumen may reflect recent instrumentation. Correlate with history of catheterization. The differential diagnosis includes fistula, which seems less likely as no bladder wall inflammation adjacent inflamed bowel noted. - IV NS 2.5 L - IV Zofran as needed - haloperidol 10 mg IM once - placed NPO - GI consulted - stable H&H and stable blood pressure Hypertensive urgency, now resolved Questionable substance withdrawal? - monitor - pending UDS - IV lorazepam 1 mg once Esophagitis Probable gastritis - IV Protonix b.i.d. - sucralfate 1 g p.o. t.i.d. Hypokalemia - repleted DVT prophylaxis: SCDs Goals of care: Full code, discussed for >16 minutes on 12/03/2024 Plan discussed with patient Plan discussed with Dr. Arias Plan discussed with: Patient, Other (RN) Date of Service: Dec 03, 2024 Billing Provider: BEE ARIAS MD Common Visit Codes: [id number] INP/OBS CARE (HIGH) ELOINA FORRESTER RESIDENT Dec 03, 2024 23:42 BEE ARIAS MD Dec 04, 2024 19:05
[2024-12-03] MEDS: PANTOPRAZOLE 40 MG/10 ML VIAL INJ IV SCH (23:53)
[2024-12-03] MEDS: SODIUM CHLORIDE 0.9% 500 ML IV ONE (23:53)
[2024-12-03] MEDS: ONDANSETRON HCL 4 MG/2 ML VIAL IV PRN (23:53)
[2024-12-03 23:54] LABS: Hemoglobin 15.3 g/dL (12.2-16.2)
[2024-12-04] MEDS ORDERED: NALOXONE HCL 1MG/ML 2ML SYRINGE IV ONE (00:30)
[2024-12-04] MEDS: POTASSIUM CHL 20MEQ/50ML 50 ML IV SCH (04:09)
[2024-12-04] MEDS: LORazepam 2MG/ML-1ML VIAL IV ONE (04:44)
[2024-12-04] MEDS: SODIUM CHLORIDE 0.9% 1,000 ML IV SCH ×2 (04:44→10:55)
[2024-12-04 07:20] LABS: Amphetamine Screen, Urine Pos (NEGATIVE); Barbiturate Scree,Urine Neg (NEGATIVE); Benzodiazephine Screen, Urine Neg (NEGATIVE); Cannabinoid Screen, Urine Pos (NEGATIVE); Cocaine Screen, Urine Neg (NEGATIVE); Opiate Scree,Urine Neg (NEGATIVE); Phencyclidine Screen, Urine Neg (NEGATIVE)
[2024-12-04 08:00] VITALS: BP 152/96; PULSE 87; RESP 19; TEMP 98; O2SAT 99
[2024-12-04 09:10] LABS: Basophils # (auto) 0.1 10 ^3/uL (0-0.2); Eosinophils # (auto) 0.1 10 ^3/uL (0-0.8); Lymphocytes # (auto) 1.7 10 ^3/uL (0.4-5.4); Monocytes # (auto) 0.9 10 ^3/uL (0-1.3); Neutrophils # (auto) 7.2 10 ^3/uL (1.6-8.6)
[2024-12-04 09:13] LABS: Basophils % (auto) 0.7 % (0.0-2.0); Eosinophils % (auto) 0.9 % (0.0-7.0); Hematocrit 41.6 % (36.0-46.0); Hemoglobin 14.3 g/dL (12.2-16.2); Lymphocytes % (auto) 17.4 % (10.0-50.0); Mean Corpuscular Hemoglobin 34.2 pg (28.0-32.0); Mean Corpuscular Hgb Conc. 34.5 g/dL (32.0-36.0); Mean Corpuscular Volume 99.2 fL (80.0-100.0); Monocytes % (auto) 9.2 % (0.0-12.0); Neutrophils % (auto) 71.8 % (37.0-80.0); Platelet Count (auto) 331 10^3/uL (140-450); Red Blood Cells 4.19 10^6/uL (4.0-5.20); Red Cell Distribution Width 14.3 % (11.8-14.3)
[2024-12-04 09:33] LABS: Alanine Aminotransferase 17 U/L (7-40); Albumin 3.4 g/dL (3.2-4.8); Anion Gap 8 (5-15); Aspartate Aminotransferase 23 U/L (13-40); Carbon Dioxide 21 mmol/L (20-31); Glucose 96 mg/dL (74-106); Potassium 3.7 mmol/L (3.5-5.1); Sodium 141 mmol/L (136-145); Total Protein 6.1 g/dL (5.7-8.2)
[2024-12-04 09:34] LABS: Bilirubin, Total 0.5 mg/dL (0.2-1.0)
[2024-12-04 09:39] LABS: Alkaline Phosphatase 45 U/L (46-116); BUN/Creatinine Ratio 8.6 (10.0-20.0); Blood Urea Nitrogen < 5 mg/dL (9-23); Calcium 7.6 mg/dL (8.7-10.4); Chloride 112 mmol/L (98-107)
[2024-12-04 10:00] VITALS: RESP 21
[2024-12-04] MEDS: SUCRALFATE 1 GM/10 ML ORAL SUSP PO SCH (10:49)
[2024-12-04 12:24] VITALS: BP 153/90; PULSE 85; TEMP 98.1; O2SAT 98
--- NOTE | 2024-12-04 12:25 | DVHDSRES ---
Discharge Summary Date of Admission Resident Creating Document: ELOINA FORRESTER RESIDENT Dec 03, 2024 at 23:35 Date of Discharge: Dec 04, 2024 Admitting Diagnosis HPI- Patient is a 44-year-old female with past medical history of asthma who comes in due to abdominal pain. According to the patient, yesterday on 12/02/2024 she started experiencing an abdominal pain which she describes as sharp, stabbing, constant and 8/10 in intensity without any exacerbating factors and relieved by vomiting. Patient notes that a day prior to the onset of pain she had turkey and cheese sandwich. Patient also notes that 2 days ago she was at a alliance party and she believes her coffee was spiked with methamphetamine after which he started experiencing abdominal pain and vomiting. Patient notes she had multiple episodes of vomiting yesterday, unable to quantify it, patient does notes seeing blood in her vomitus which she describes as bright red. CT abdomen pelvis showed Small sliding hiatal hernia mild distal esophageal wall circumferential thickening that may reflect esophagitis. In addition, there is mild thickening and hyperemia of gastric fundus wall that may reflect gastritis. Slightly dense fluid noted in the lumen of the fundus that could be ingested material but if there is hematemesis, this may reflect hemorrhage. On review of systems patient is complaining of nausea and vomiting. Hospital course- Patient is a 44-year-old female with past medical history of asthma who comes in due to abdominal pain. According to the patient, yesterday on 12/02/2024 she started experiencing an abdominal pain which she describes as sharp, stabbing, constant and 8/10 in intensity without any exacerbating factors and relieved by vomiting. Patient notes that a day prior to the onset of pain she had turkey and cheese sandwich. Patient also notes that 2 days ago she was at a [employer] party and she believes her coffee was spiked with methamphetamine after which he started experiencing abdominal pain and vomiting. Patient notes she had multiple episodes of vomiting yesterday, unable to quantify it, patient does notes seeing blood in her vomitus which she describes as bright red. Lab workup revealed UDS positive for amphetamine, cannabinoids. Potassium 3.3, corrected. Patient's elevated blood pressure on admission was likely due to substance abuse methamphetamine and cannabinoids. CT abdomen pelvis showed Small sliding hiatal hernia mild distal esophageal wall circumferential thickening that may reflect esophagitis. In addition, there is mild thickening and hyperemia of gastric fundus wall that may reflect gastritis. Slightly dense fluid noted in the lumen of the fundus that could be ingested material but if there is hematemesis, this may reflect hemorrhage. Patient's symptom improved with the conservative management. Patient was adamant about going home today. Patient is being discharged home with the pantoprazole 40 mg p.o. daily, Carafate 1 g p.o. q.6h for 2 weeks, Zofran 4 mg p.o. q.6h PRN for 5 days. Patient was advised to follow up with the primary care physician in 1 week. Patient was counseled about the effect of substance abuse on health. Patient verbalized understanding. Patient's med were sent to the pharmacy electronically. Patient was hemodynamically stable on discharge. Assessment Acute intractable abdominal pain with vomiting likely due to cannabinoids Cannabinoids induced Hematemesis History of cannabis hyperemesis syndrome Elevated blood pressure likely due to substance abuse amphetamine Esophagitis Probable gastritis Hypokalemia Asthma no acute exacerbation Discharge plan Pantoprazole 40 mg p.o. daily for 2 weeks Zofran 4 mg q.6h p.r.n. for 5 days Please follow up at the discharge clinic in 1 week with the stool bacterial culture report Please follow up with the primary care physician in 1 week with the stool bacterial culture Patient was counseled about the effect of substance abuse on health Labs/Diagnostic Data: Laboratory Results Test 12/04/24 08:50 12/04/24 06:39 12/03/24 23:45 12/03/24 15:22 White Blood Count 10.0 10^3/uL (4.4-10.8) Red Blood Count 4.19 10^6/uL (4.0-5.20) Hemoglobin 14.3 g/dL (12.2-16.2) Hematocrit 41.6 % (36.0-46.0) Mean Corpuscular Volume 99.2 fL (80.0-100.0) Mean Corpuscular Hemoglobin 34.2 pg (28.0-32.0) Mean Corpuscular Hemoglobin Concent 34.5 g/dL (32.0-36.0) Red Cell Distribution Width 14.3 % (11.8-14.3) Platelet Count 331 10^3/uL (140-450) Mean Platelet Volume 7.3 fL (6.9-10.8) Neutrophils (%) (Auto) 71.8 % (37.0-80.0) Lymphocytes (%) (Auto) 17.4 % (10.0-50.0) Monocytes (%) (Auto) 9.2 % (0.0-12.0) Eosinophils (%) (Auto) 0.9 % (0.0-7.0) Basophils (%) (Auto) 0.7 % (0.0-2.0) Neutrophils # (Auto) 7.2 10 ^3/uL (1.6-8.6) Lymphocytes # (Auto) 1.7 10 ^3/uL (0.4-5.4) Monocytes # (Auto) 0.9 10 ^3/uL (0-1.3) Eosinophils # (Auto) 0.1 10 ^3/uL (0-0.8) Basophils # (Auto) 0.1 10 ^3/uL (0-0.2) Nucleated Red Blood Cells 0.0 % Sodium Level 141 mmol/L (136-145) Potassium Level 3.7 mmol/L (3.5-5.1) Chloride Level 112 mmol/L (98-107) Carbon Dioxide Level 21 mmol/L (20-31) Anion Gap 8 (5-15) Blood Urea Nitrogen < 5 mg/dL (9-23) Creatinine 0.58 mg/dL (0.550-1.02) Glomerular Filtration Rate Calc 113 mL/min (>90) BUN/Creatinine Ratio 8.6 (10.0-20.0) Serum Glucose 96 mg/dL (74-106) Calcium Level 7.6 mg/dL (8.7-10.4) Total Bilirubin 0.5 mg/dL (0.2-1.0) Aspartate Amino Transferase (AST) 23 U/L (13-40) Alanine Aminotransferase (ALT) 17 U/L (7-40) Alkaline Phosphatase 45 U/L (46-116) Total Protein 6.1 g/dL (5.7-8.2) Albumin 3.4 g/dL (3.2-4.8) Urine Opiates Screen Neg (NEGATIVE) Urine Fentanyl Screen Neg (NEGATIVE) Urine Barbiturates Screen Neg (NEGATIVE) Urine Phencyclidine Screen Neg (NEGATIVE) Urine Amphetamines Screen Pos (NEGATIVE) Urine Benzodiazepines Screen Neg (NEGATIVE) Urine Cocaine Screen Neg (NEGATIVE) Urine Cannabinoids Screen Pos (NEGATIVE) Plasma/Serum Blood Alcohol < 3.0 mg/dL (<10) POC Glucose 109 mg/dl (70-106) Test 12/03/24 10:10 12/03/24 09:53 Lipase 27 U/L (12-53) Urine Color Light-yellow (Yellow) Urine Clarity Clear (Clear) Urine pH 8.0 (5.0-9.0) Urine Specific [place] 1.016 (1.001-1.035) Urine Protein Trace (Negative) Urine Ketones 3+ (Negative) Urine Blood Negative /uL (Negative) Urine Nitrite Negative (Negative) Urine Bilirubin Negative (Negative) Urine Urobilinogen Normal mg/dL (Negative) Urine Leukocyte Esterase Negative /uL (Negative) Urine RBC 2 /hpf (0 - 4) Urine Microscopic WBC 7 /HPF (0-5) Urine Squamous Epithelial Cells Few /hpf (<5) Urine Bacteria None seen /hpf (None Seen) Urine Glucose Trace mg/dL (Normal) Other Laboratory Tests 12/04/24 08:50 Brief Hx & Hospital Course: HPI- Patient is a 44-year-old female with past medical history of asthma who comes in due to abdominal pain. According to the patient, yesterday on 12/02/2024 she started experiencing an abdominal pain which she describes as sharp, stabbing, constant and 8/10 in intensity without any exacerbating factors and relieved by vomiting. Patient notes that a day prior to the onset of pain she had turkey and cheese sandwich. Patient also notes that 2 days ago she was at a [employer] party and she believes her coffee was spiked with methamphetamine after which he started experiencing abdominal pain and vomiting. Patient notes she had multiple episodes of vomiting yesterday, unable to quantify it, patient does notes seeing blood in her vomitus which she describes as bright red. CT abdomen pelvis showed Small sliding hiatal hernia mild distal esophageal wall circumferential thickening that may reflect esophagitis. In addition, there is mild thickening and hyperemia of gastric fundus wall that may reflect gastritis. Slightly dense fluid noted in the lumen of the fundus that could be ingested material but if there is hematemesis, this may reflect hemorrhage. On review of systems patient is complaining of nausea and vomiting. Hospital course- Patient is a 44-year-old female with past medical history of asthma who comes in due to abdominal pain. According to the patient, yesterday on 12/02/2024 she started experiencing an abdominal pain which she describes as sharp, stabbing, constant and 8/10 in intensity without any exacerbating factors and relieved by vomiting. Patient notes that a day prior to the onset of pain she had turkey and cheese sandwich. Patient also notes that 2 days ago she was at a [employer] party and she believes her coffee was spiked with methamphetamine after which he started experiencing abdominal pain and vomiting. Patient notes she had multiple episodes of vomiting yesterday, unable to quantify it, patient does notes seeing blood in her vomitus which she describes as bright red. Lab workup revealed UDS positive for amphetamine, cannabinoids. Potassium 3.3, corrected. Patient's elevated blood pressure on admission was likely due to substance abuse methamphetamine and cannabinoids. CT abdomen pelvis showed Small sliding hiatal hernia mild distal esophageal wall circumferential thickening that may reflect esophagitis. In addition, there is mild thickening and hyperemia of gastric fundus wall that may reflect gastritis. Slightly dense fluid noted in the lumen of the fundus that could be ingested material but if there is hematemesis, this may reflect hemorrhage. Patient's symptom improved with the conservative management. Patient was adamant about going home today. Patient is being discharged home with the pantoprazole 40 mg p.o. daily, Carafate 1 g p.o. q.6h for 2 weeks, Zofran 4 mg p.o. q.6h PRN for 5 days. Patient was advised to follow up with the primary care physician in 1 week. Patient was counseled about the effect of substance abuse on health. Patient verbalized understanding. Patient's med were sent to the pharmacy electronically. Patient was hemodynamically stable on discharge. Assessment Acute intractable abdominal pain with vomiting likely due to cannabinoids Cannabinoids induced Hematemesis History of cannabis hyperemesis syndrome Elevated blood pressure likely due to substance abuse amphetamine Esophagitis Probable gastritis Hypokalemia Asthma no acute exacerbation Discharge plan Pantoprazole 40 mg p.o. daily for 2 weeks Zofran 4 mg q.6h p.r.n. for 5 days Please follow up at the discharge clinic in 1 week Please follow up with the primary care physician in 1 week with the stool bacterial culture report Please monitor blood pressure and keep a log to be reviewed by the primary care physician Please follow up with the snack stewardess in 2-3 weeks for further evaluation and care Patient was counseled about the effect of substance abuse on health Consults/Reason for consult [facility] [id number] [facility] [address] Ph: [phone] DIAGNOSTIC IMAGING Diagnostic Imaging Report : [id number] Signed PATIENT: CHAIM LARSON MACCT: [id number] UNIT: [id number] : 1980 LOC: ER ROOM / BED: / AGE / SEX: 44 / F ADM STATUS: REG ER SERVICE [id number] ORDERING PHYSICIAN: SHMUEL WINCHESTER MD PROCEDURE(s): ABPLIV - CT AB PEL WITH IV CON ONLY REASON: severe epigastric pain ORDER NUMBER(s): [id number], ACCESSION NUMBER(s): [id number] Procedure: CT CT AB PEL WITH IV CON ONLY 12/03/2024 03:56 PM Indication: severe epigastric pain Comparison Study: None Technique: Axial images were obtained and reformatted in coronal and sagittal planes. All CT scans at this medical facility are performed using dose modulation techniques as appropriate to a performed exam including the following: Automated exposure control was utilized; adjustment of the MA and/or KV according to patient size; and use of iterative reconstruction technique. CT Dose: CTDI volume is 8.54 mGy. Dose-length product is 441.05 mGy*cm FINDINGS: Lower Chest: Unremarkable. Hepatobiliary: Mild hepatomegaly. A subcentimeter cyst is seen in the right hepatic lobe. No enhancing lesions identified. No intrahepatic or extrahepatic ductal dilatation. Spleen: Unremarkable. Pancreas: Unremarkable. Adrenal Glands: Unremarkable. tract: The kidneys are normal in size bilaterally without hydronephrosis or nephrolithiasis. A subcentimeter focus of air noted in the urinary bladder. No bladder wall thickening or calculi. GI tract: A small sliding hiatal hernia noted. Mild distal esophageal wall thickening. There is mild gastric fundus wall thickening No evidence of small bowel obstruction. The large bowel is unremarkable. Suggestion of appendectomy. Lymphatics: No mesenteric, retroperitoneal or periportal lymphadenopathy. Vasculature: The abdominal aorta is normal in caliber. Pelvic Organs: The uterus is surgically absent. No adnexal lesion is identified. Bones/soft tissues: No acute abnormality. Tiny fat containing supraumbilical hernia with a subcentimeter neck. Other: None. IMPRESSION: 1. Small sliding hiatal hernia mild distal esophageal wall circumferential thickening that may reflect esophagitis. In addition, there is mild thickening and hyperemia of gastric fundus wall that may reflect gastritis. Slightly dense fluid noted in the lumen of the fundus that could be ingested material but if there is hematemesis, this may reflect hemorrhage. 2. Subcentimeter focus of air in the bladder lumen may reflect recent instrumentation. Correlate with history of catheterization. The differential diagnosis includes fistula, which seems less likely as no bladder wall inflammation adjacent inflamed bowel noted. ATED BY: ENEDINA CONTRERAS MD DICTATED DATE/TIME: 12/03/241753 SIGNED BY: ENEDINA CONTRERAS MD SIGNED DATE/TIME: 12/03/241753 CC: Operations or Procedures [place] [address] Ph: [phone] DIAGNOSTIC IMAGING Diagnostic Imaging Report : [id number] Signed PATIENT: CHAIM LARSON MACCT: [id number] UNIT: [id number] : 1980 LOC: ER ROOM / BED: / AGE / SEX: 44 / F ADM STATUS: REG ER SERVICE [id number] ORDERING PHYSICIAN: SHMUEL WINCHESTER MD PROCEDURE(s): ABPLIV - CT AB PEL WITH IV CON ONLY REASON: severe epigastric pain ORDER NUMBER(s): [id number], ACCESSION NUMBER(s): [id number] Procedure: CT CT AB PEL WITH IV CON ONLY 12/03/2024 03:56 PM Indication: severe epigastric pain Comparison Study: None Technique: Axial images were obtained and reformatted in coronal and sagittal planes. All CT scans at this medical facility are performed using dose modulation techniques as appropriate to a performed exam including the following: Automated exposure control was utilized; adjustment of the MA and/or KV according to patient size; and use of iterative reconstruction technique. CT Dose: CTDI volume is 8.54 mGy. Dose-length product is 441.05 mGy*cm FINDINGS: Lower Chest: Unremarkable. Hepatobiliary: Mild hepatomegaly. A subcentimeter cyst is seen in the right hepatic lobe. No enhancing lesions identified. No intrahepatic or extrahepatic ductal dilatation. Spleen: Unremarkable. Pancreas: Unremarkable. Adrenal Glands: Unremarkable. tract: The kidneys are normal in size bilaterally without hydronephrosis or nephrolithiasis. A subcentimeter focus of air noted in the urinary bladder. No bladder wall thickening or calculi. GI tract: A small sliding hiatal hernia noted. Mild distal esophageal wall thickening. There is mild gastric fundus wall thickening No evidence of small bowel obstruction. The large bowel is unremarkable. Suggestion of appendectomy. Lymphatics: No mesenteric, retroperitoneal or periportal lymphadenopathy. Vasculature: The abdominal aorta is normal in caliber. Pelvic Organs: The uterus is surgically absent. No adnexal lesion is identified. Bones/soft tissues: No acute abnormality. Tiny fat containing supraumbilical hernia with a subcentimeter neck. Other: None. IMPRESSION: 1. Small sliding hiatal hernia mild distal esophageal wall circumferential thickening that may reflect esophagitis. In addition, there is mild thickening and hyperemia of gastric fundus wall that may reflect gastritis. Slightly dense fluid noted in the lumen of the fundus that could be ingested material but if there is hematemesis, this may reflect hemorrhage. 2. Subcentimeter focus of air in the bladder lumen may reflect recent instrumentation. Correlate with history of catheterization. The differential diagnosis includes fistula, which seems less likely as no bladder wall inflammation adjacent inflamed bowel noted. ATED BY: ENEDINA CONTRERAS MD DICTATED DATE/TIME: 12/03/241753 SIGNED BY: ENEDINA CONTRERAS MD SIGNED DATE/TIME: 12/03/243 CC: Condition at Discharge: Stable Final Diagnosis/Problems List Acute intractable abdominal pain with vomiting likely due to cannabinoids Cannabinoids induced Hematemesis History of cannabis hyperemesis syndrome Elevated blood pressure likely due to substance abuse amphetamine Esophagitis Probable gastritis Hypokalemia Asthma no acute exacerbation Discharge Disposition: Home Discharge Instruct/Medications Diet: See Comment Diet comment: Liquid diet for 1 week Followed by gradual operating diet Follow Up/Referral: Please follow up at the discharge clinic in 1 week with the stool bacterial culture report Please follow up with the primary care physician in 1 week with the stool bacterial culture Please monitor blood pressure and keep a log to be reviewed by the primary care physician Please follow up with the snack stewardess in 2-3 weeks for further evaluation and care Patient was counseled about the effect of substance abuse on health Medications: Pantoprazole 40 mg p.o. daily for 2 weeks Carafate 1 g p.o. q.6h for 14 days Zofran 4 mg q.6h p.r.n. for 5 days Discharge Statement: "Patient was advised to return to the ER or call 911 if any headaches, dizziness, shortness of breath, chest pain, abdominal pain, bleeding, fevers, or worsening of medical condition. Patient was counseled about treatment plan, medications, possible side effects, patientverbalized understanding. All questions were answered to the best of my ability. 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
[2024-12-04] MEDS ORDERED: PANT40T PO (12:26)
[2024-12-04] MEDS ORDERED: ZOFR4T PO (12:26)
[2024-12-04] MEDS ORDERED: SUCR1TAB31 PO (15:54)
== END 2024-12-04 15:16 | disposition home or self-care (01) | DRG 241 ==
LOC: ER 09:44 → OVERFLOW 23:35
PROVIDERS: ADMIT Student in an Organized Health Care Education/Training Program; ATTEND Student in an Organized Health Care Education/Training Program
DX: K29.71 Gastritis, unspecified, with bleeding (principal); K20.91 Esophagitis, unspecified with bleeding; E87.6 Hypokalemia; F12.988 Cannabis use, unspecified with other cannabis-induced disorder; K44.9 Diaphragmatic hernia without obstruction or gangrene; I10 Essential (primary) hypertension; F15.10 Other stimulant abuse, uncomplicated; J45.909 Unspecified asthma, uncomplicated; I16.0 Hypertensive urgency; Z90.710 Acquired absence of both cervix and uterus; Z79.899 Other long term (current) drug therapy; Z90.49 Acquired absence of other specified parts of digestive tract; Z87.891 Personal history of nicotine dependence
CPT/HCPCS: 36415; 74177; 80053; 80307; 80320; 81001; 82962; 83690; 85014; 85018; 85025; 96361; 96374; 96375; 99291; G0378; J1885; J2405; J2470

== ENCOUNTER 2024-12-27 12:32 | Emergency (ER) | payer MEDICAID ==
[~2024-12-27] VITALS: Ht 165.1 cm; Wt 70.0 kg
[~2024-12-27 12:32] MED LIST changes: +PANT40T PO; +SUCR1TAB31 PO; +ZOFR4T PO
--- NOTE | 2024-12-27 12:57 | ED.PDOC ---
Psychiatric HPI Comments 80-tned-kgc-female presents to the ED via EMS with a chief complaint of overdose onset yesterday (12/26/24) around 16:00. Patient states she has been under stress due to family issues and school, wanted to "end it all." Patient states she ingested about 20 pills of Tramadol yesterday, was drinking ETOH, smoked marihuana, and used methamphetamine, admits to suicide attempt. She began experiencing nausea/vomiting around 18:00, does not recall events after. Today around 01:00 patient woke up experiencing nausea, hematemesis, diffused abdominal pain. Hematemesis worsen, was bright red, abdominal pain worsen, boyfriend called 911. Upon EMS arrival, patient was tachycardic with HR 150, was given 500 mL fluids, HR was 120 as well as Zofran 4 mg. Denies chest pain, shortness of breath, dizziness, blurred vision, diarrhea, fever, chills. No other symptoms or modifying factors present at this time. Chief Complaint: Overdose Time Seen by MD: 12:45 Primary Care Provider: NONE Reviewed Notes: Medications, Allergies Information Source: Patient, Emergency Med Personnel Mode of Arrival: EMS Severity of Pain: Moderate Severity of Mental Status: Moderate Severity of Symptoms: Moderate Timing: Hours Duration: Since onset Prehospital treatment: 12 Lead EKG, IVF Presents with: Suicidal Ideation Attempt: Ingestion Ingestion: Intentional, Drug(s) Ingested (Tramadol 50 mg about 20 pills, meth, marihuana), ETOH Current substance abuse: ETOH, Other (tramadol, meth) Stressors: Family History of: Suicidal Attempt, Substance Abuse Modifying Factors: Vomited after ingestion Associated signs and symptoms: Nausea, Vomiting, Abdominal Pain Past Medical History PAST MEDICAL HISTORY: GERD Surgical History: Appendectomy, Hernia Repair, Hysterectomy, Tubal Ligation FIELD DIRECTOR History: No Pertinent FIELD DIRECTOR History Family History Family History: Family hx of heart estrella Social History Smoker: Cigarettes Alcohol: Heavy Drugs: Marijuana, Methamphetamine Lives In: Home Constitutional: denies: chills, diaphoresis, fatigue, fever, malaise, sweats, weakness, others EENTM: denies: blurred vision, double vision, ear bleeding, ear discharge, ear drainage, ear pain, ear ringing, eye pain, eye redness, hearing loss, mouth pain, mouth swelling, nasal discharge, nose bleeding, nose congestion, nose pain, photophobia, tearing, throat pain, throat swelling, voice changes, others Respiratory: denies: cough, hemoptysis, orthopnea, SOB at rest, shortness of breath, SOB with excertion, stridor, wheezing, others Cardiovascular: denies: chest pain, dizzy spells, diaphoresis, Dyspnea on exertion, edema, irregular heart beat, left arm pain, lightheadedness, palpitations, PND, syncope, others Gastrointestinal: reports: abdominal pain, hematemesis, nausea, vomiting; denies: abdomen distended, blood streaked bowels, constipated, diarrhea, dysphagia, difficulty swallowing, melena, poor appetite, poor fluid intake, rectal bleeding, rectal pain, others Genitourinary: denies: abnormal vagina bleeding, burning, dyspareunia, dysuria, flank pain, frequency, hematuria, incontinence, pain, , vagina discharge, urgency, others Neurological: denies: dizziness, fainting, headache, left sided numbness, left sided weakness, numbness, paresthesia, pre-existing deficit, right sided numbness, right sided weakness, seizure, speech problems, tingling, tremors, weakness, others Musculoskeletal: denies: back pain, gout, joint pain, joint swelling, muscle pain, muscle stiffness, neck pain, others Integumetry: denies: bruises, change in color, change in hair/nails, dryness, laceration, lesions, lumps, rash, wounds, others Allergic/Immunocompromised: denies: Difficulty Healing, Frequent Infections, Hives, Itching, others Hematologic/Lymphatic: denies: anemia, blood clots, easy bleeding, easy bruising, swollen glands, others Endocrine: denies: excessive hunger, excessive sweating, excessive thirst, excessive urination, flushing, intolerance to cold, intolerance to heat, unexplained weight gain, unexplained weight loss, others Psychiatric: reports: suicidal; denies: anxiety, bipolar disorder, depression, hopeless, panic disorder, schizophrenia, sleepless, others All Other Systems: Reviewed and Negative Physical Exam General Appearance: Mild Distress HEENT: PERRL/EOMI, Other (Moist mucous membranes) Neck: Full Range of Motion, Normal Inspection Respiratory: Lungs Clear, No Accessory Muscle Use, No Respiratory Distress, Normal Breath Sounds Cardiovascular: No Edema, No JVD, Tachycardia Breast Exam: Deferred Gastrointestinal: Epigastric, Soft, Tenderness Genitalia: Deferred Pelvic: Deferred Rectal: Deferred Extremities: Normal inspection, Normal range of motion, Non-tender, No pedal edema Neurologic: Alert (Oriented x4), Normal Affect, Normal Mood (Depressed, anxious mood), Other (Ambulatory) Cerebellar Function: NOT DONE Reflexes: NOT DONE Skin: Dry, Normal Color, Warm Lymphatic: NOT DONE EKG EKG : Comments Sinus tach, rate 112, normal [place] and QRS intervals, QTC 489, normal axis, normal QRS, nonspecific T change. Was a procedure done? Was a procedure done?: No Psych Differential Dx Psych. Differential Dx: Anxiety, Depression, Hopeless, Panic Disorder, Suicidal OD Differential Dx: Alcohol Abuse, Drug Overdose, Substance Abuse, Suicidal Attempt, Suicidal Gesture Intoxication Differential Dx: Alcohol Withdraw Syndrome, Electrolyte Imbalance X-Ray, Labs, Meds, VS Vital Signs Date Time Temp Pulse Resp B/P (MAP) Pulse Ox O2 Delivery O2 Flow Rate FiO2 12/27/24 18:32 101 19 128/78 (95) 96 12/27/24 17:00 98.1 92 16 115/79 (91) 96 98.1 12/27/24 16:15 86 12/27/24 15:01 93 19 116/76 (89) 97 12/27/24 14:45 91 17 123/69 12/27/24 13:31 111 13 98 Room Air* 0 21 12/27/24 13:31 98.0 110 10 158/105 (122) 98 98.0 12/27/24 13:25 110 21 158/105 12/27/24 12:43 112 12/27/24 12:40 97.5 130 24 128/86 (100) 95 97.5 Lab Test 12/27/24 14:02 12/27/24 13:01 Range/Units Troponin I High Sensitivity 3 L 4 </=34 ng/L White Blood Count 15.4 H 4.4-10.8 10^3/uL Red Blood Count 5.26 H 4.0-5.20 10^6/uL Hemoglobin 17.3 H 12.2-16.2 g/dL Hematocrit 51.2 H 36.0-46.0 % Mean Corpuscular Volume 97.3 80.0-100.0 fL Mean Corpuscular Hemoglobin 32.9 H 28.0-32.0 pg Mean Corpuscular Hemoglobin Concent 33.8 32.0-36.0 g/dL Red Cell Distribution Width 14.7 H 11.8-14.3 % Platelet Count 378 140-450 10^3/uL Mean Platelet Volume 7.6 6.9-10.8 fL Neutrophils (%) (Auto) 89.0 H 37.0-80.0 % Lymphocytes (%) (Auto) 5.1 L 10.0-50.0 % Monocytes (%) (Auto) 5.6 0.0-12.0 % Eosinophils (%) (Auto) 0.0 0.0-7.0 % Basophils (%) (Auto) 0.3 0.0-2.0 % Neutrophils # (Auto) 13.7 H 1.6-8.6 10 ^3/uL Lymphocytes # (Auto) 0.8 0.4-5.4 10 ^3/uL Monocytes # (Auto) 0.9 0-1.3 10 ^3/uL Eosinophils # (Auto) 0 0-0.8 10 ^3/uL Basophils # (Auto) 0 0-0.2 10 ^3/uL Nucleated Red Blood Cells 0.0 % Sodium Level 139 136-145 mmol/L Potassium Level 3.4 L 3.5-5.1 mmol/L Chloride Level 102 98-107 mmol/L Carbon Dioxide Level 25 20-31 mmol/L Anion Gap 12 5-15 Blood Urea Nitrogen 9 9-23 mg/dL Creatinine 0.81 0.550-1.02 mg/dL Glomerular Filtration Rate Calc 91 >90 mL/min BUN/Creatinine Ratio 11.1 10.0-20.0 Serum Glucose 133 H 74-106 mg/dL Calcium Level 10.2 8.7-10.4 mg/dL Total Bilirubin 1.4 H 0.2-1.0 mg/dL Aspartate Amino Transferase (AST) 14 13-40 U/L Alanine Aminotransferase (ALT) 16 7-40 U/L Alkaline Phosphatase 66 46-116 U/L Total Protein 8.4 H 5.7-8.2 g/dL Albumin 4.7 3.2-4.8 g/dL Lipase 34 12-53 U/L Beta HCG, Quantitative 0.9 L 1.5-4.2 mIU/mL Salicylates Level < 3.0 -30 mg/dL Acetaminophen Level < 2.0 L 10.0-20.0 UG/ML Plasma/Serum Blood Alcohol 4.0 <10 mg/dL Current Medications Medications (Trade) Dose Ordered Sig/Elizabeth Route Start Time Stop Time Status Last Admin Sodium Chloride 1,000 ml @ 1,000 mls/hr Q1H ONCE IV 12/27/24 12:45 12/27/24 13:44 DC 12/27/24 13:23 Pantoprazole Sodium (Protonix) 40 mg ONCE ONCE IV 12/27/24 12:45 12/27/24 12:46 DC 12/27/24 13:24 Morphine Sulfate 2 mg ONCE ONCE IV 12/27/24 13:00 12/27/24 13:01 DC 12/27/24 13:25 Haloperidol Lactate (Haldol) 5 mg ONCE ONCE IM 12/27/24 13:00 12/27/24 13:01 DC 12/27/24 13:24 PROCEDURE(s): ABPL - CT AB PEL WO CON-NO ORAL OR IV REASON: upper/mid abd pain, n/v, hematemesis ORDER NUMBER(s): [id number], ACCESSION NUMBER(s): [id number] Exam: CT CT AB PEL WO CON-NO ORAL OR IV History: upper/mid abd pain, n/v, hematemesis Comparison Study: CT CT AB PEL WO CON-NO ORAL OR IV on DOS: 07/27/24, CT CT AB PEL WO CON-NO ORAL OR IV on DOS: 07/06/24 TECHNIQUE: Multidetector CT of the abdomen was performed from lung bases to pubic symphysis. Imaging was performed without IV contrast. Axial, coronal and sagittal multiplanar reformats were obtained from the axial data set by the technologist. Radiation Dose Information: CT Dose: CTDI volume is 8.07 mGy. Dose-length product is 384.63 mGy*cm FINDINGS: Evaluation of solid organs is limited due to lack of intravenous contrast use. Findings: Lung Bases: No acute or significant lung base finding. Normal heart size. No pleural or pericardial effusion. Liver: The liver is normal in size. No focal lesions. Gallbladder and Biliary Tree: No calcified gallstones Spleen: Unremarkable Pancreas: The pancreas is grossly normal in appearance. Adrenal Glands: Unremarkable Kidneys: Kidneys are grossly normal without calculi or hydronephrosis. Bladder: Grossly unremarkable for degree of distention. Bowel: The stomach is grossly normal in appearance. Small bowel and colon are normal in caliber and distribution. The appendix is not visualized; however, no secondary findings of acute appendicitis identified. Ascites: Absent Lymphadenopathy: No mesenteric, retroperitoneal or periportal lymphadenopathy. Abdominal Wall and Mesentery: Unremarkable. Vasculature: The visualized abdominal aorta is normal in size and caliber. Evaluation of abdominal and pelvic vessels is limited due to lack of intravenous contrast. Pelvic Organs: Unremarkable Musculoskeletal: No aggressive focal bony lesions, acute fractures or dislocation. Soft tissues: Unremarkable IMPRESSION: 1. The stomach does not appear distended 2. No findings to suggest bowel obstruction 3. No calcified gallstones 4. No nephrolithiasis or hydronephrosis Radiation optimization: All CT scans at this facility use at least one of these dose optimization techniques: automated exposure control mA and/or kV adjustment per patient size (includes targeted exams where dose is matched to clinical indication) or iterative reconstruction. HS:Y X-Ray, Labs, Meds, VS Comment 44-year-old female with a history of asthma, esophagitis and probable gastritis, hyperemesis cannabis brought in by EMS after overdosing on tramadol last night. Patient admits to feeling suicidal due to life stress last night. She denies any SI today. She states has been having epigastric pain, nausea, vomiting and bright red blood in her vomit. Vitals remarkable for initial heart rate 130, respiratory rate 24 Exam remarkable for tachycardia and epigastric tenderness to palpation Rhythm strip independently interpreted by me: Sinus tach, rate 130, no ectopy. CT abdomen and pelvis IMPRESSION: 1. The stomach does not appear distended 2. No findings to suggest bowel obstruction 3. No calcified gallstones 4. No nephrolithiasis or hydronephrosis CBC remarkable for WBC 15.4, hemoglobin 17.3, hematocrit 51.2, CMP remarkable for potassium 3.4, lipase normal, troponin negative, Tylenol and salicylate negative, alcohol negative, drug screen pending Patient received a 500 cc normal saline bolus and IV Zofran administered by EMS prior to arrival Patient treated with the following in the ED: 1 L 0.9 normal saline IV bolus, Protonix 40 mg IV, Haldol 5 mg IM, morphine 4 mg IV Poison control was contacted and recommendations were overdose panel workup, and to monitor for at least 4 hours after the ingestion for LOCOMOTIVE LUBRICATING SYSTEMS CLERK depression, seizures. Patient has exceeded that timeframe and pains alert, oriented and neurologically intact in the ED. Patient is currently medically cleared for psychiatric evaluation. Plan is for tele psych evaluation. Disposition will be per tele psych recommendations. Case discussed with Dr. Bowen, psychiatry, who interviewed the patient via video consultation. He did not feel the patient meets criteria for a hold or inpatient psychiatric treatment. He felt the patient was stable for discharge with a prescription for propranolol and Campral and close follow-up with her primary physician for referral for alcohol and drug rehab. Patient re-evaluated and states nausea and pain have improved. Vitals are stable. Patient now appears stable for discharge with close outpatient follow-up. Rx propranolol, Campral Time of 1ST Reevaluation: 19:27 Reevaluation 1ST: Improved Patient Education/Counseling: Diagnosis, Treatment, Prognosis, Need For Follow Up Family Education/Counseling: No Family Present Departure 1 Departure Time of Disposition: 14:16 Impression: Primary Impression: Intentional overdose Qualified Codes: T50.902A - Poisoning by unspecified drugs, medicaments and biological substances, intentional self-harm, initial encounter Additional Impressions: Gastritis Qualified Codes: K29.70 - Gastritis, unspecified, without bleeding Cannabinoid hyperemesis syndrome Disposition: 01 HOME / SELF CARE / HOMELESS Condition: Stable Additional Instructions: Follow-up with your primary doctor in 1-2 days for referral for drug and alcohol rehabilitation. I have prescribed medications recommended by our psychiatrist that should help your symptoms. e-Prescriptions Acamprosate Calcium (ACAMPROSATE CALCIUM DR) 333 Mg Tab 666 MG OR TID, #180 TAB Prov: RIA RODRIGUEZ MD 12/27/24 Propranolol HCl (Propranolol Hydrochloride) 10 Mg Tab 10 MG PO TID PRN, #30 TAB prn anxiety/palpitations Prov: RIA RODRIGUEZ MD 12/27/24 Discharged With: Relative Critical Care Note Critical Care Time?: No Stability Stability form required: No Heart Score Heart Score: Heart Score Response (Comments) Value History N/A 0 EKG N/A 0 Age N/A 0 Risk Factors N/A 0 Troponin N/A 0 Total 0 I personally scribed for RAI RODRIGUEZ MD ([email or web address]) on 12/27/24 at 12:57. Electronically submitted by Mariza Culver ([email or web address]). I personally scribed for RIA RODRIGUEZ MD ([email or web address]) on 12/27/24 at 15:36. Electronically submitted by Mariza Culver ([email or web address]). RIA RODRIGUEZ MD December 27, 2024 12:57
[2024-12-27 13:16] LABS: Basophils # (auto) 0 10 ^3/uL (0-0.2); Basophils % (auto) 0.3 % (0.0-2.0); Eosinophils # (auto) 0 10 ^3/uL (0-0.8); Hematocrit 51.2 % (36.0-46.0); Hemoglobin 17.3 g/dL (12.2-16.2); Lymphocytes # (auto) 0.8 10 ^3/uL (0.4-5.4); Lymphocytes % (auto) 5.1 % (10.0-50.0); Mean Corpuscular Hemoglobin 32.9 pg (28.0-32.0); Mean Corpuscular Hgb Conc. 33.8 g/dL (32.0-36.0); Mean Corpuscular Volume 97.3 fL (80.0-100.0); Monocytes # (auto) 0.9 10 ^3/uL (0-1.3); Monocytes % (auto) 5.6 % (0.0-12.0); Neutrophils # (auto) 13.7 10 ^3/uL (1.6-8.6); Platelet Count (auto) 378 10^3/uL (140-450); Red Blood Cells 5.26 10^6/uL (4.0-5.20); Red Cell Distribution Width 14.7 % (11.8-14.3); White Blood Cell 15.4 10^3/uL (4.4-10.8)
[2024-12-27] MEDS: SODIUM CHLORIDE 0.9% 1,000 ML IV ONE (13:23)
[2024-12-27] MEDS: HALOPERIDOL LACTATE 5 MG/ML INJ VIAL IM ONE (13:24)
[2024-12-27] MEDS: PANTOPRAZOLE 40 MG/10 ML VIAL INJ IV ONE (13:24)
[2024-12-27] MEDS: MORPHINE SULFATE INJ 2 MG/ml SYRG IV ONE (13:25)
[2024-12-27 13:31] VITALS: PULSE 111; RESP 13; O2SAT 98
[2024-12-27 13:44] LABS: Alanine Aminotransferase 16 U/L (7-40); Albumin 4.7 g/dL (3.2-4.8); Alkaline Phosphatase 66 U/L (46-116); Anion Gap 12 (5-15); Aspartate Aminotransferase 14 U/L (13-40); BUN/Creatinine Ratio 11.1 (10.0-20.0); Blood Urea Nitrogen 9 mg/dL (9-23); Calcium 10.2 mg/dL (8.7-10.4); Carbon Dioxide 25 mmol/L (20-31); Chloride 102 mmol/L (98-107); Glucose 133 mg/dL (74-106); Potassium 3.4 mmol/L (3.5-5.1); Sodium 139 mmol/L (136-145); Total Protein 8.4 g/dL (5.7-8.2)
[2024-12-27 13:45] LABS: Acetaminophen < 2.0 UG/ML (10.0-20.0); Bilirubin, Total 1.4 mg/dL (0.2-1.0); Salicylate < 3.0 mg/dL (-30)
[2024-12-27 13:54] LABS: Lipase 34 U/L (12-53)
--- NOTE | 2024-12-27 14:19 | DVH ---
Exam: CT CT AB PEL WO CON-NO ORAL OR IV History: upper/mid abd pain, n/v, hematemesis Comparison Study: CT CT AB PEL WO CON-NO ORAL OR IV on DOS: 07/27/24, CT CT AB PEL WO CON-NO ORAL OR I V on DOS: 07/06/24 TECHNIQUE: Multidetector CT of the abdomen was performed from lung bases to pubic symphysis. Imaging was performed without IV contrast. Axial, coronal and sagittal multiplanar reformats were obtained fr om the axial data set by the technologist. Radiation Dose Information: CT Dose: CTDI volume is 8.07 mGy. Dose-length product is 384.63 mGy*cm FINDINGS: Evaluation of solid organs is limited due to lack of intravenous contrast use. Findings: Lung Bases: No acute or significant lung base finding. Normal heart size. No pleural or pericardial effusion. Liver: The liver is normal in size. No focal lesions. Gallbladder and Biliary Tree: No calcified gallstones Spleen: Unremarkable Pancreas: The pancreas is grossly normal in appearance. Adrenal Glands: Unremarkable Kidneys: Kidneys are grossly normal without calculi or hydronephrosis. Bladder: Grossly unremarkable for degree of distention. Bowel: The stomach is grossly normal in appearance. Small bowel and colon are normal in caliber and d istribution. The appendix is not visualized; however, no secondary findings of acute appendicitis id entified. Ascites: Absent Lymphadenopathy: No mesenteric, retroperitoneal or periportal lymphadenopathy. Abdominal Wall and Mesentery: Unremarkable. Vasculature: The visualized abdominal aorta is normal in size and caliber. Evaluation of abdominal a nd pelvic vessels is limited due to lack of intravenous contrast. Pelvic Organs: Unremarkable Musculoskeletal: No aggressive focal bony lesions, acute fractures or dislocation. Soft tissues: Unremarkable IMPRESSION: 1. The stomach does not appear distended 2. No findings to suggest bowel obstruction 3. No calcified gallstones 4. No nephrolithiasis or hydronephrosis Radiation optimization: All CT scans at this facility use at least one of these dose optimization te chniques: automated exposure control mA and/or kV adjustment per patient size (includes targeted exa ms where dose is matched to clinical indication) or iterative reconstruction. HS:Y
--- NOTE | 2024-12-27 18:44 | DVHINCON2 ---
Date of Service if different f: December 27, 2024 Consultation ([facility]) Progress: Somewhat better Labs Laboratory Tests Test 12/27/24 13:01 12/27/24 14:02 White Blood Count 15.4 10^3/uL (4.4-10.8) Red Blood Count 5.26 10^6/uL (4.0-5.20) Hemoglobin 17.3 g/dL (12.2-16.2) Hematocrit 51.2 % (36.0-46.0) Mean Corpuscular Volume 97.3 fL (80.0-100.0) Mean Corpuscular Hemoglobin 32.9 pg (28.0-32.0) Mean Corpuscular Hemoglobin Concent 33.8 g/dL (32.0-36.0) Red Cell Distribution Width 14.7 % (11.8-14.3) Platelet Count 378 10^3/uL (140-450) Mean Platelet Volume 7.6 fL (6.9-10.8) Neutrophils (%) (Auto) 89.0 % (37.0-80.0) Lymphocytes (%) (Auto) 5.1 % (10.0-50.0) Monocytes (%) (Auto) 5.6 % (0.0-12.0) Eosinophils (%) (Auto) 0.0 % (0.0-7.0) Basophils (%) (Auto) 0.3 % (0.0-2.0) Neutrophils # (Auto) 13.7 10 ^3/uL (1.6-8.6) Lymphocytes # (Auto) 0.8 10 ^3/uL (0.4-5.4) Monocytes # (Auto) 0.9 10 ^3/uL (0-1.3) Eosinophils # (Auto) 0 10 ^3/uL (0-0.8) Basophils # (Auto) 0 10 ^3/uL (0-0.2) Nucleated Red Blood Cells 0.0 % Sodium Level 139 mmol/L (136-145) Potassium Level 3.4 mmol/L (3.5-5.1) Chloride Level 102 mmol/L (98-107) Carbon Dioxide Level 25 mmol/L (20-31) Anion Gap 12 (5-15) Blood Urea Nitrogen 9 mg/dL (9-23) Creatinine 0.81 mg/dL (0.550-1.02) Glomerular Filtration Rate Calc 91 mL/min (>90) BUN/Creatinine Ratio 11.1 (10.0-20.0) Serum Glucose 133 mg/dL (74-106) Calcium Level 10.2 mg/dL (8.7-10.4) Total Bilirubin 1.4 mg/dL (0.2-1.0) Aspartate Amino Transf (AST/SGOT) 14 U/L (13-40) Alanine Aminotransferase (ALT/SGPT) 16 U/L (7-40) Alkaline Phosphatase 66 U/L (46-116) Total Protein 8.4 g/dL (5.7-8.2) Albumin 4.7 g/dL (3.2-4.8) Lipase 34 U/L (12-53) Beta HCG, Quantitative 0.9 mIU/mL (1.5-4.2) Salicylates Level < 3.0 mg/dL (-30) Acetaminophen Level < 2.0 UG/ML (10.0-20.0) Plasma/Serum Blood Alcohol 4.0 mg/dL (<10) Troponin I High Sensitivity 3 ng/L (</=34) Appetite: Fair Side effects of medications: No Appearance: Stated age Psychomotor activity: Calm Behavioral: Cooperative Eye contact: Appropriate Speech: WNL Affect: Restricted Mood: Depressed Thought processes: Linear/Goal-directed Suicidal ideations: Absent Homicidal ideations: Absent Orientation: Person, Place, Situation Memory intact: Recent Intellect: Average Abstractability: WNL Concentration: Adequate Attention: Adequate Judgement: WNL Insight: Limited Vitals Vital Signs Date Time Temp Pulse Resp B/P (MAP) Pulse Ox O2 Delivery O2 Flow Rate FiO2 12/27/24 17:00 98.1 92 16 115/79 (91) 96 98.1 12/27/24 13:31 Room Air* 0 21 Treatment plan discussed: With staff Medication adjusted: Yes Labs ordered: No Psychotherapy provided: No Type: Voluntary Diagnosis: Substance induced depressive disorder. Alcohol use disorder severe. Stimulant use disorder severe. Cannabis use disorder Severe. Plan : 44 y/o female presents to the ED after having overdosed on 2 tramadol pills in the context of a relapse on alcohol and meth d/t "feeling stressed". Pt describes the trigger to use as "boredom", no anxiety or trauma issues associated with the substance use. Pt feels regret for having attempted suicide, not regretful of the relapse as much. Pt is quite ambivalent about substance use and is not in the zone to get into recovery per se. Has no hx of KESHIA treatment, not interested in 12 step programming. But the pt denies any lingering or current SI, HI or other psychiatric symptoms. Pt denies feeling depressed or anxious at baseline. Pt feels she can stay safe when returning home to resume caring for her mother. Based on this eval, the pt appears to be at a low risk for DTS/DTO. Offered inderal 10 mg TID and Campral 666 mg TID to help with reduced cravings and anxiety related to early sobriety. Pt accepted. History of Present Illness Reason for Consult : I attempted suicide. HPI : Pt took 20 tramadols, had been drinking and using meth and attempted suicide. Feels "crappy" now. Pt says that she relapsed yesterday after 1 month of sobriety. Pt feels stressed lately b/c she has recently become a caregiver for her mother, pt was graduating from [employer] school today but now will attend the next graduation on 01/17. 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 Pt felt stressed about not working, finishing school and taking care of her mother. Currently pt's friend is at home acting as her mother's caregiver. Pt says she regrets what happened, feels stupid for having done what she did, thinks it was selfish, but understands that mother would go to a prison if she wasn't able to care for her. Pt is ambivalent about her substance use and recovery. Past Psychiatric History : Denies past psych history. Denies any past KESHIA treatment. Had a DUI in 2014, found out in that context about failing liver and kidney. Past Medical History : Hepatic and renal insufficiency. Social History : Pt drank a 5th of vodka, and meth. Yesterday. Usually uses cannabis in addition to these but did not yesterday. Assessment/Diagnosis/Plan Reviewed: Consults, Care Plan PAWAN FORRESTER MD December 27, 2024 18:44
[2024-12-27] MEDS ORDERED: PROP1TAB51 PO (19:35)
[2024-12-27] MEDS ORDERED: ACAM1TAB OR (19:35)
[2024-12-27 19:45] VITALS: BP 125/84; PULSE 114; RESP 19; TEMP 98.4; O2SAT 95
--- NOTE | 2024-12-28 07:13 | ECG ---
[facility] Test Date: 2024-12-27 Test Time: 12:43:20 Pat Name: CHAIM LARSON Department: ED Room: Gender: F B2B Sales Consultant: er : 1980 Requested By: RIA QUEZADA Order Number: [id number] Reading MD: Alexi Block Measurements Intervals [place] Rate: 112 P: 78 MT: 161 QRS: 64 QRSD: 99 T: 78 QT: 358 QTc: 489 Interpretive Statements Sinus tachycardia Biatrial enlargement Left ventricular hypertrophy Nonspecific T abnrm, anterolateral leads Borderline prolonged QT interval Electronically Signed On 12-31-2024 12:39:09 PDT by Alexi Block Please click the below link to view image of tracing.
== END 2024-12-27 20:00 | disposition home or self-care (01) ==
LOC: EDSEX 12:32 → EDBD 12:32 → ER 12:32
DX: T40.422A Poisoning by tramadol, intentional self-harm, initial encounter (principal); K29.70 Gastritis, unspecified, without bleeding; R11.2 Nausea with vomiting, unspecified; F17.210 Nicotine dependence, cigarettes, uncomplicated; F12.90 Cannabis use, unspecified, uncomplicated; F15.90 Other stimulant use, unspecified, uncomplicated; K21.9 Gastro-esophageal reflux disease without esophagitis; Z90.49 Acquired absence of other specified parts of digestive tract; Z90.710 Acquired absence of both cervix and uterus; Z98.890 Other specified postprocedural states; Z98.51 Tubal ligation status; Y92.89 Other specified places as the place of occurrence of the external cause
CPT/HCPCS: 36415; 74176; 80053; 80320; 80329; 83690; 84484; 84702; 85025; 93005; 96361; 96372; 96374; 96375; 99285; J1630; J2270; J2470; J7030

== ENCOUNTER 2025-02-05 10:39 | Inpatient (IN) | payer MEDICAID ==
[~2025-02-05] VITALS: Ht 165.1 cm; Wt 69.7 kg
[~2025-02-05 10:39] MED LIST changes: +ACAM1TAB OR; +PROP1TAB51 PO
[2025-02-05] MEDS: ONDANSETRON HCL 4 MG/2 ML VIAL IV ONE (11:07)
[2025-02-05] MEDS: MORPHINE SULFATE 4 MG/ML SYR/VIAL IV ONE (11:08)
[2025-02-05] MEDS: SODIUM CHLORIDE 0.9% 1,000 ML IV ONE (11:08)
[2025-02-05 11:18] VITALS: PULSE 80; RESP 24; O2SAT 100
[2025-02-05 11:24] LABS: Basophils # (auto) 0.1 10 ^3/uL (0-0.2); Basophils % (auto) 0.7 % (0.0-2.0); Eosinophils # (auto) 0 10 ^3/uL (0-0.8); Hematocrit 49.9 % (36.0-46.0); Hemoglobin 17.1 g/dL (12.2-16.2); Lymphocytes # (auto) 0.7 10 ^3/uL (0.4-5.4); Mean Corpuscular Hemoglobin 33.7 pg (28.0-32.0); Mean Corpuscular Hgb Conc. 34.2 g/dL (32.0-36.0); Mean Corpuscular Volume 98.6 fL (80.0-100.0); Monocytes # (auto) 0.3 10 ^3/uL (0-1.3); Monocytes % (auto) 2.3 % (0.0-12.0); Neutrophils # (auto) 11.3 10 ^3/uL (1.6-8.6); Nucleated Red Blood Cells % 0.1 %; Platelet Count (auto) 471 10^3/uL (140-450); Red Blood Cells 5.06 10^6/uL (4.0-5.20); White Blood Cell 12.4 10^3/uL (4.4-10.8)
--- NOTE | 2025-02-05 11:24 | DVH ---
Exam: CT CT AB PEL WO CON-NO ORAL OR IV History: left flank pain Comparison Study: CT CT AB PEL WO CON-NO ORAL OR IV on DOS: 12/27/24 Technique: Multidetector spiral CT of the abdomen and pelvis was performed from lung bases to pubic s ymphysis. Imaging was performed without intravenous contrast. Coronal and sagittal multiplanar reform ats were obtained from the axial data set by the technologist. Radiation Dose : 1. Abdomen/Pelvis: CTDIvol 8.5 mGy, DLP 396.9 mGy*cm. Findings: Evaluation of vasculature and solid organs is limited due to lack of intravenous contrast use. Lung Bases: Lung bases are clear. Visualized portions of the heart and pericardium are unremarkable. Liver: The liver is normal in size. 5 mm low attenuating lesion in the right hepatic lobe. Low atten uating liver parenchyma. Gallbladder and Biliary Tree: The gallbladder is unremarkable. No intrahepatic or extrahepatic biliar y ductal dilatation. Spleen: Unremarkable Pancreas: The pancreas is grossly unremarkable. Adrenal Glands: Unremarkable Kidneys: Kidneys are unremarkable without calculi or hydronephrosis. GI tract: The stomach is grossly normal in appearance. No evidence of small bowel wall thickening or abnormal dilatation to suggest bowel obstruction. The colon is unremarkable. The appendix is not visu alized, however no inflammatory changes in the right lower quadrant to suggest acute appendicitis. Peritoneum/mesentery/retroperitoneum. No evidence of free intraperitoneal air. No ascites. No evidenc e of suspicious lymphadenopathy. Abdominal Wall: Unremarkable. Vasculature: The visualized abdominal aorta is normal in size and caliber. Evaluation of abdominal a nd pelvic vessels is limited due to lack of intravenous contrast. Urinary Bladder: Grossly unremarkable for degree of distention. Pelvic Organs: Unremarkable Musculoskeletal: No aggressive focal bony lesions, acute fractures or dislocation. IMPRESSION: 1. No acute abdominal or pelvic findings.
--- NOTE | 2025-02-05 11:24 | ED.PDOC ---
General HPI Comments 44 year old female presents to the ED via EMS with a chief complaint of LT flank pain onset 1 day. Patient states she has been experiencing LT flank pain for the past day as well as dysuria with burning sensation, nausea. Patient noticed pain worsen this morning, experienced 2 episodes of vomiting. PMHx GERD, kidney stones. Denies hematuria, hematemesis, chest pain, shortness of breath, fevers, chills. No other symptoms or modifying factors present at this time. Chief Complaint: Abdominal Pain Time Seen by MD: 10:40 Primary Care Provider: UNKNOWN Reviewed notes: Medications, Allergies Allergies: Coded Allergies: NO KNOWN ALLERGIES (Unverified , 07/06/24) Home Meds Active Scripts Acamprosate Calcium (ACAMPROSATE CALCIUM DR) 333 Mg Tab, 666 MG OR TID, #180 TAB Prov:RIA RODRIGUEZ MD 12/27/24 Propranolol HCl (Propranolol Hydrochloride) 10 Mg Tab, 10 MG PO TID PRN, #30 TAB prn anxiety/palpitations Prov:RIA RODRIGUEZ MD 12/27/24 Sucralfate (CARAFATE) 1 Gm Tab, 1 GM PO Q6HR for 14 Days, #56 TAB Prov:KIA ENGLISH 12/04/24 Ondansetron Odt 4MG Tab (ZOFRAN PO) 4 Mg Tb, 4 MG PO Q6HP PRN for 5 Days, #20 TAB ODT TAB-DISSOLVE IN MOUTH, THEN SWALLOW Prov:KIA ENGLISH 12/04/24 Pantoprazole Sodium Sesquihydr (Pantoprazole Sodium) 40 Mg Tab, 40 MG PO DAILY for 14 Days, #14 TAB Prov:KIA ENGLISH 12/04/24 Alum & Mag Hydrox-Simethicone (Maalox Multi Symptom Maxi) Symp Max Shana, 1 MAX PO QID PRN for 10 Days, #1200 ML Prov:FOREST MOMIN MD 07/31/24 Famotidine (Pepcid AC) 20 Mg Tab, 20 MG PO BID for 30 Days, #60 TAB Prov:FOREST MOMIN MD 07/31/24 Information Source: Patient, Emergency Med Personnel Mode of Arrival: EMS Severity: Moderate Timing: Days Duration: Since onset Prehospital treatment: None Onset: Spontaneous Symptoms: Dysuria History of: Kidney stone Location: (L)Flank associated signs and symptoms: Nausea, Vomiting, Flank Pain, Dysuria Past Medical History PAST MEDICAL HISTORY: GERD, Kidney Stones Surgical History: Appendectomy, Hernia Repair, Hysterectomy, Tubal Ligation 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 Family History Family History: Family hx of heart estrella Social History Smoker: Cigarettes Alcohol: Heavy Drugs: Marijuana, Methamphetamine Lives In: Home Constitutional: denies: chills, diaphoresis, fatigue, fever, malaise, sweats, weakness, others EENTM: denies: blurred vision, double vision, ear bleeding, ear discharge, ear drainage, ear pain, ear ringing, eye pain, eye redness, hearing loss, mouth p ain, mouth swelling, nasal discharge, nose bleeding, nose congestion, nose pain, photophobia, tearing, throat pain, throat swelling, voice changes, others Respiratory: denies: cough, hemoptysis, orthopnea, SOB at rest, shortness of br eath, SOB with excertion, stridor, wheezing, others Cardiovascular: denies: chest pain, dizzy spells, diaphoresis, Dyspnea on exertion, edema, irregular heart beat, left arm pain, lightheadedness, palpitations, PND, syncope, others Gastrointestinal: reports: nausea, vomiting; denies: abdomen distended, abdominal pain, blood streaked bowels, constipated, diarrhea, dysphagia, difficulty swallowing, hematemesis, melena, poor appetite, poor fluid intake, rectal bleeding, rectal pain, others Genitourinary: reports: burning, dysuria, flank pain (LT); denies: abnormal vagina bleeding, dyspareunia, frequency, hematuria, incontinence, pain, , vagina discharge, urgency, others Neurological: denies: dizziness, fainting, headache, left sided numbness, left sided weakness, numbness, paresthesia, pre-existing deficit, right sided numbness, right sided weakness, seizure, speech problems, tingling, tremors, weakness, others Musculoskeletal: denies: back pain, gout, joint pain, joint swelling, muscle pain, muscle stiffness, neck pain, others Integumetry: denies: bruises, change in color, change in hair/nails, dryness, laceration, lesions, lumps, rash, wounds, others Allergic/Immunocompromised: denies: Difficulty Healing, Frequent Infections, Hives, Itching, others Hematologic/Lymphatic: denies: anemia, blood clots, easy bleeding, easy bruising, swollen glands, others Endocrine: denies: excessive hunger, excessive sweating, excessive thirst, excessive urination, flushing, intolerance to cold, intolerance to heat, unexplained weight gain, unexplained weight loss, others Psychiatric: denies: anxiety, bipolar disorder, depression, hopeless, panic disorder, schizophrenia, sleepless, suicidal, others All Other Systems: Reviewed and Negative Physical Exam General Appearance: Normal, Other (appears uncomfortable) HEENT: Normal ENT Inspection, Pharynx Normal, TMs Normal Neck: Full Range of Motion, Non-Tender, Normal, Normal Inspection Respiratory: Chest Non-Tender, Lungs Clear, No Accessory Muscle Use, No Respiratory Distress, Normal Breath Sounds Cardiovascular: No Edema, No JVD, No Murmur, No Gallop, Normal Peripheral Pulses, Regular Rate/Rhythm Breast Exam: Deferred Gastrointestinal: No Organomegaly, Tenderness (LT CVA) Genitalia: Deferred Pelvic: Deferred Rectal: Deferred Extremities: No calf tenderness, Normal capillary refill, Normal inspection, Normal range of motion, Non-tender, No pedal edema Musculoskeletal : Apperance: Normal Neurologic: Alert, kennel aide II-XII nml as Tested, No Motor Deficits, Normal Affect, Normal Mood, No Sensory Deficits Cerebellar Function: Normal Reflexes: Normal Skin: Dry, Normal Color, Warm Lymphatic: No Adenopathy Was a procedure done? Was a procedure done?: No Differential Diagnosis Kidney stone (Female): N/A Kidney stone (Male): N/A Penile/Scrotal: N/A Urinary Problem (Male): N/A Urinary Problem (Female): Appendicitis, Pyelonephritis, Urinary retention, Urolithiasis, UTI X-Ray, Labs, Meds, VS Vital Signs Date Time Temp Pulse Resp B/P (MAP) Pulse Ox O2 Delivery O2 Flow Rate FiO2 02/05/25 12:56 97.7 87 20 139/107 (118) 100 97.7 02/05/25 11:38 87 20 139/107 02/05/25 11:18 98.6 80 24 161/105 (123) 100 98.6 02/05/25 11:18 80 24 100 Room Air* 0 21 02/05/25 11:09 98.0 86 22 177/90 (119) 99 98.0 02/05/25 11:08 80 24 161/105 02/05/25 10:46 84 Lab Test 02/05/25 11:04 02/05/25 09:58 Range/Units White Blood Count 12.4 H 4.4-10.8 10^3/uL Red Blood Count 5.06 4.0-5.20 10^6/uL Hemoglobin 17.1 H 12.2-16.2 g/dL Hematocrit 49.9 H 36.0-46.0 % Mean Corpuscular Volume 98.6 80.0-100.0 fL Mean Corpuscular Hemoglobin 33.7 H 28.0-32.0 pg Mean Corpuscular Hemoglobin Concent 34.2 32.0-36.0 g/dL Red Cell Distribution Width 15.0 H 11.8-14.3 % Platelet Count 471 H 140-450 10^3/uL Mean Platelet Volume 7.2 6.9-10.8 fL Neutrophils (%) (Auto) 91.0 H 37.0-80.0 % Lymphocytes (%) (Auto) 6.0 L 10.0-50.0 % Monocytes (%) (Auto) 2.3 0.0-12.0 % Eosinophils (%) (Auto) 0.0 0.0-7.0 % Basophils (%) (Auto) 0.7 0.0-2.0 % Neutrophils # (Auto) 11.3 H 1.6-8.6 10 ^3/uL Lymphocytes # (Auto) 0.7 0.4-5.4 10 ^3/uL Monocytes # (Auto) 0.3 0-1.3 10 ^3/uL Eosinophils # (Auto) 0 0-0.8 10 ^3/uL Basophils # (Auto) 0.1 0-0.2 10 ^3/uL Nucleated Red Blood Cells 0.1 % Sodium Level 141 136-145 mmol/L Potassium Level 3.7 3.5-5.1 mmol/L Chloride Level 106 98-107 mmol/L Carbon Dioxide Level 23 20-31 mmol/L Anion Gap 12 5-15 Blood Urea Nitrogen 6 L 9-23 mg/dL Creatinine 0.81 0.550-1.02 mg/dL Glomerular Filtration Rate Calc 91 >90 mL/min BUN/Creatinine Ratio 7.4 L 10.0-20.0 Serum Glucose 130 H 74-106 mg/dL Calcium Level 10.7 H 8.7-10.4 mg/dL Current Medications Medications (Trade) Dose Ordered Sig/Elizabeth Route Start Time Stop Time Status Last Admin Sodium Chloride 1,000 ml @ 1,000 mls/hr Q1H ONCE IV 02/05/25 10:45 02/05/25 11:44 DC 02/05/25 11:08 Morphine Sulfate 4 mg ONCE ONCE IV 02/05/25 10:45 02/05/25 10:46 DC 02/05/25 11:08 Ondansetron HCl (Zofran) 4 mg ONCE ONCE IV 02/05/25 10:45 02/05/25 10:46 DC 02/05/25 11:07 Metoclopramide HCl (Reglan Injection) 10 mg ONCE ONCE IV 02/05/25 13:00 02/05/25 13:01 DC 02/05/25 13:45 Time of 1ST Reevaluation: 11:20 Reevaluation 1ST: Unchanged Patient Education/Counseling: Diagnosis, Treatment, Prognosis Family Education/Counseling: No Family Present SEPSIS Sepsis Screen Date sepsis recognized/suspect: Feb 05, 2025 Time Sepsis recognized/suspect: 1038 Recent Procedure: No On Antibiotic Therapy: No Respiratory Rate >20: No Heart Rate >90: No Temp<36 C (96.8 F) or >38.3 C: No SBP <90 or MAP <65 mmHG: No New Acute Mental Status Change: No Is the patient on CPAP, BIPAP,: No Physician Orders Urinalysis (02/05/25 10:41) Ct Ab Pel Wo Con-No Oral Or Iv (02/05/25 10:41) Electrocardigram (02/05/25 10:44) Vital Signs Date Time Temp Pulse Resp B/P (MAP) Pulse Ox O2 Delivery O2 Flow Rate FiO2 02/05/25 12:56 97.7 87 20 139/107 (118) 100 97.7 02/05/25 11:38 87 20 139/107 02/05/25 11:18 98.6 80 24 161/105 (123) 100 98.6 02/05/25 11:18 80 24 100 Room Air* 0 21 02/05/25 11:09 98.0 86 22 177/90 (119) 99 98.0 02/05/25 11:08 80 24 161/105 02/05/25 10:46 84 Laboratory Tests Test 02/05/25 11:04 White Blood Count 12.4 10^3/uL (4.4-10.8) H Medications Medications Dose Ordered Sig/Elizabeth Route Start Time Stop Time Status Last Admin Dose Admin Metoclopramide HCl 10 mg ONCE ONCE IV 02/05/25 13:00 02/05/25 13:01 DC 02/05/25 13:45 Morphine Sulfate 4 mg ONCE ONCE IV 02/05/25 10:45 02/05/25 10:46 DC 02/05/25 11:08 Ondansetron HCl 4 mg ONCE ONCE IV 02/05/25 10:45 02/05/25 10:46 DC 02/05/25 11:07 Sodium Chloride 1,000 ml @ 1,000 mls/hr Q1H ONCE IV 02/05/25 10:45 02/05/25 11:44 DC 02/05/25 11:08 Departure 1 Departure Time of Disposition: 16:01 (Patient with intractable nausea and vomiting. Patient is still unable to tolerate p.o.. With the patient for further workup and expert consultation.) Impression: Primary Impression: Projectile vomiting with nausea Additional Impression: Left flank pain Disposition: ADMITTED INPATIENT Admit to: Med Surg Condition: Serious Critical Care Note Critical Care Time?: Yes Critical care comment: Intractable nausea and vomiting Authorized and Performed by: Shmuel Winchester MD Total critical care time: Approximately 34 minutes Due to a high probability of clinically significant, life threatening deterioration, the patient required my highest level of preparedness to interv sharon emergently and I personally spent this critical care time directly and personally managing the patient. This critical care time included obtaining a history; examining the patient; pulse oximetry; ordering and review of studies; arranging urgent treatment with development of a management plan; evaluation of patient's response to treatment; frequent reassessment; and, discussions with other providers. This critical care time was performed to assess and manage the high probability of imminent, life-threatening deterioration that could result in multi-organ failure. It was exclusive of separately billable procedures and treating other patients and teaching time. Please see my other sections and the rest of the note for further information on patient assessment and treatment. Stability Stability form required: No I personally scribed for SHMUEL WINCHESTER MD ([email or web address]) on 02/05/25 at 11:24. Electronically submitted by Mariza Culver ([email or web address]). SHMUEL WINCHESTER MD Feb 05, 2025 11:24
[2025-02-05 11:25] LABS: Chloride 106 mmol/L (98-107); Potassium 3.7 mmol/L (3.5-5.1); Sodium 141 mmol/L (136-145)
[2025-02-05 11:26] LABS: Anion Gap 12 (5-15); Carbon Dioxide 23 mmol/L (20-31)
[2025-02-05 11:27] LABS: Calcium 10.7 mg/dL (8.7-10.4)
[2025-02-05 11:32] LABS: BUN/Creatinine Ratio 7.4 (10.0-20.0); Blood Urea Nitrogen 6 mg/dL (9-23); Glucose 130 mg/dL (74-106)
[2025-02-05] MEDS: METOCLOPRAMIDE HCL 5MG/ml INJ 2ml VIAL IV ONE (13:45)
--- NOTE | 2025-02-05 17:05 | DVHHP2 ---
History of Present Illness Reason for Visit: Left flank pain History of Present Illness 44-year-old female past medical history occurs kidney stones surgical history appendectomy hernia repair hysterectomy tubal ligation chief complaint patient comes in with left flank pain that started this morning patient states it is sharp in nature constant nothing makes it better nothing makes it worse she does have some pain with urination but no blood in her urine she did does state that she had some vomiting but there was no blood in her vomit denies any diarrhea nothing makes it better nothing makes it worse. When evaluating patient's labs and imaging looks like Haldol was given Reglan Zofran morphine normal saline white count was found to be 12.4 hemoglobin was 17.1 and 49.1 glucose was [address] scan of the abdomen pelvis unremarkable patient states she used to be a heavy drinker but she quit 14 days ago she denies drug or alcohol use with these findings we will admit for IV hydration and pain management for intractable pain Past Medical History See HPI above Past Surgical History See HPI above Family History Reviewed, non-contributory to the management of this case. 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 Dyspnea, Edema, Lt Headedness, Other Gastrointestinal: Nausea, Abdominal Pain; No: Vomiting, Diarrhea, Constipation, Melena, Hematochezia, Other Genitourinary: No Dysuria, No Frequency, No Incontinence, No Hematuria, No Retention, No Other Musculoskeletal: No: other, neck pain, shoulder pain, arm pain, back pain, hand pain, leg pain, foot pain Skin: No: Rash, Lesions, Jaundice, Bruising, Other Neurological: No: Weakness, Numbness, Incoordination, Change in speech, Confusion, Seizures, Other Allergies: Coded Allergies: NO KNOWN ALLERGIES (Unverified , 07/06/24) Exam Vital Signs Vital Signs Date Time Temp Pulse Resp B/P (MAP) Pulse Ox O2 Delivery O2 Flow Rate FiO2 02/05/25 16:11 98.2 80 16 138/105 (116) 97 98.2 02/05/25 11:18 Room Air* 0 21 General Appearance: Alert, Oriented X3, Cooperative, No acute distress HEENT: Atraumatic, PERRLA, EOMI, Mucous membr. moist/pink Respiratory: Clear to auscultation, Normal air movement Cardiovascular: Regular rate, Normal S1, Normal S2, No murmurs Abdominal: Normal bowel sounds, Soft, No tenderness, No hepatospenomegaly, No masses Extremities: No clubbing, No cyanosis, No edema, Normal pulses, No tenderness/swelling Skin: No rashes, No breakdown, No significant lesion Neuro: Normal gait, Normal speech, Strength at 5/5 X4 ext, Normal tone, Sensation intact, Cranial nerves 3-12 NL Psych/Mental Status: Mental status NL, Mood NL Labs/Xrays CT scan abdomen pelvis unremarkable I reviewed labs, imaging CT scan abdomen pelvis, EKG and all diagnostic studies on this patient from ED records and the medical chart Labs Test 02/05/25 11:04 02/05/25 09:58 Range/Units White Blood Count 12.4 H 4.4-10.8 10^3/uL Red Blood Count 5.06 4.0-5.20 10^6/uL Hemoglobin 17.1 H 12.2-16.2 g/dL Hematocrit 49.9 H 36.0-46.0 % Mean Corpuscular Volume 98.6 80.0-100.0 fL Mean Corpuscular Hemoglobin 33.7 H 28.0-32.0 pg Mean Corpuscular Hemoglobin Concent 34.2 32.0-36.0 g/dL Red Cell Distribution Width 15.0 H 11.8-14.3 % Platelet Count 471 H 140-450 10^3/uL Mean Platelet Volume 7.2 6.9-10.8 fL Neutrophils (%) (Auto) 91.0 H 37.0-80.0 % Lymphocytes (%) (Auto) 6.0 L 10.0-50.0 % Monocytes (%) (Auto) 2.3 0.0-12.0 % Eosinophils (%) (Auto) 0.0 0.0-7.0 % Basophils (%) (Auto) 0.7 0.0-2.0 % Neutrophils # (Auto) 11.3 H 1.6-8.6 10 ^3/uL Lymphocytes # (Auto) 0.7 0.4-5.4 10 ^3/uL Monocytes # (Auto) 0.3 0-1.3 10 ^3/uL Eosinophils # (Auto) 0 0-0.8 10 ^3/uL Basophils # (Auto) 0.1 0-0.2 10 ^3/uL Nucleated Red Blood Cells 0.1 % Sodium Level 141 136-145 mmol/L Potassium Level 3.7 3.5-5.1 mmol/L Chloride Level 106 98-107 mmol/L Carbon Dioxide Level 23 20-31 mmol/L Anion Gap 12 5-15 Blood Urea Nitrogen 6 L 9-23 mg/dL Creatinine 0.81 0.550-1.02 mg/dL Glomerular Filtration Rate Calc 91 >90 mL/min BUN/Creatinine Ratio 7.4 L 10.0-20.0 Serum Glucose 130 H 74-106 mg/dL Calcium Level 10.7 H 8.7-10.4 mg/dL Assessment/Plan Assessment/Plan acute intractable vomiting ct scan abd pelvis negative ordered ivf ordered zofran prn nausea ordered uds fu results ordered ua ordered preg test fu results acute dehydration Elevated hemoglobin in elevated at the white count likely concentrated ordered ivf for now acute leukocytosis likely acute phase reactive ordered ivf for now ct scan no infection fu wbc in am no need for antibotics fen/ppx diet advance as tolerated ivf protonix scd plan admit to medicine Plan discussed with: Patient Date of Service: Feb 05, 2025 Billing Provider: KATERINE POTTER DNP Common Visit Codes: [id number] INP/OBS CARE (HIGH) KATERINE POTTER DNP Feb 05, 2025 17:05
[2025-02-05] MEDS ORDERED: DOCUSATE SOD 100 MG CAP PO PRN (19:15)
[2025-02-05] MEDS: HALOPERIDOL LACTATE 5 MG/ML INJ VIAL IM ONE (20:28)
[2025-02-05] MEDS: PANTOPRAZOLE 40 MG/10 ML VIAL INJ IV ONE (20:28)
[2025-02-05] MEDS: ONDANSETRON HCL 4 MG/2 ML VIAL IV PRN (20:34)
[2025-02-05] MEDS: MORPHINE SULFATE INJ 2 MG/ml SYRG IV PRN (20:34)
[2025-02-06] VITALS (9 sets, daily range): BP systolic 118–151; BP diastolic 76–88; PULSE 74–98; RESP 17–20; TEMP 98.1–99.4; O2SAT 95–98
[2025-02-06 05:59] LABS: Basophils # (auto) 0 10 ^3/uL (0-0.2); Basophils % (auto) 0.2 % (0.0-2.0); Eosinophils # (auto) 0 10 ^3/uL (0-0.8); Eosinophils % (auto) 0.1 % (0.0-7.0); Hematocrit 46.4 % (36.0-46.0); Hemoglobin 15.8 g/dL (12.2-16.2); Lymphocytes # (auto) 1.3 10 ^3/uL (0.4-5.4); Mean Corpuscular Hemoglobin 33.5 pg (28.0-32.0); Mean Corpuscular Volume 98.5 fL (80.0-100.0); Monocytes % (auto) 6.3 % (0.0-12.0); Neutrophils # (auto) 13.4 10 ^3/uL (1.6-8.6); Neutrophils % (auto) 85.4 % (37.0-80.0); Platelet Count (auto) 407 10^3/uL (140-450); Red Blood Cells 4.71 10^6/uL (4.0-5.20); Red Cell Distribution Width 15.3 % (11.8-14.3); White Blood Cell 15.7 10^3/uL (4.4-10.8)
[2025-02-06 06:18] LABS: Alanine Aminotransferase 15 U/L (7-40); Alkaline Phosphatase 49 U/L (46-116); Calcium 9.3 mg/dL (8.7-10.4); Carbon Dioxide 21 mmol/L (20-31); Chloride 105 mmol/L (98-107)
[2025-02-06 06:19] LABS: Albumin 4.2 g/dL (3.2-4.8); Anion Gap 13 (5-15); Aspartate Aminotransferase 24 U/L (<34); BUN/Creatinine Ratio 9.2 (10.0-20.0); Glucose 103 mg/dL (74-106); Potassium 3.5 mmol/L (3.5-5.1); Sodium 139 mmol/L (136-145); Total Protein 7.4 g/dL (5.7-8.2)
[2025-02-06 06:24] LABS: Blood Urea Nitrogen 6 mg/dL (9-23)
[2025-02-06] MEDS: PANTOPRAZOLE 40 MG/10 ML VIAL INJ IV SCH (09:53)
--- NOTE | 2025-02-06 13:21 | DVHPN2 ---
Reviewed: Care Plan, H&P, Labs, Medications, Previous Orders, Radiology Changes from previous H/P or p: No Changes Eyes: No Pain, No Vision change, No Conjunctivae inflammation, No Eyelid inflammation, No Other, No Redness ENT: No Ear pain, No Ear discharge, No Nose pain, No Nose discharge, No Nose congestion, No Mouth pain, No Mouth swelling, No Throat pain, No Throat swelling, No Other Cardiovascular: No Chest Pain, No Palpitations, No Orthopnea, No Paroxysmal Noc. Dyspnea, No Edema, No Lt Headedness, No Other Respiratory: No Cough, No Dry, No Shortness of breath, No SOB with excertion, No Wheezing, No Hemoptysis, No Pleuritic Pain, No Sputum, No Other Gastrointestinal: Nausea; No Vomiting; Abdominal Pain; No Diarrhea, No Constipation, No Melena, No Hematochezia, No Other Genitourinary: No Dysuria, No Frequency, No Incontinence, No Hematuria, No Retention, No Other Musculoskeletal: No other, No neck pain, No shoulder pain, No arm pain, No back pain, No hand pain, No leg pain, No foot pain Skin: No Rash, No Lesions, No Jaundice, No Bruising, No Other Objective Vitals Vital Signs Date Time Temp Pulse Resp B/P (MAP) Pulse Ox O2 Delivery O2 Flow Rate FiO2 02/06/25 10:34 94 17 144/88 02/06/25 09:00 99.2 97 99.2 02/06/25 08:00 Room Air* 0 21 Intake/Output Intake and Output 02/06/25 07:00 Intake Total 0 ml Balance 0 ml Intake Oral 0 ml Medications Current Medications Medications Dose Ordered Sig/Elizabeth Route Start Time Stop Time Status Last Admin Dose Admin Ondansetron HCl 4 mg Q4HP PRN IV 02/05/25 19:15 02/06/25 10:28 4 MG Docusate Sodium 100 mg BIDPRN PRN PO 02/05/25 19:15 Morphine Sulfate 2 mg Q4HPRN PRN IV 02/05/25 19:15 02/06/25 10:34 2 MG Pantoprazole Sodium 40 mg DAILY IV 02/06/25 10:00 02/06/25 09:53 40 MG Laboratory Results Laboratory Tests 02/06/25 05:20 Chemistry Test 02/06/25 05:20 Albumin 4.2 g/dL (3.2-4.8) Calcium Level 9.3 mg/dL (8.7-10.4) Total Protein 7.4 g/dL (5.7-8.2) LFT Test 02/06/25 05:20 Alanine Aminotransferase (ALT) 15 U/L (7-40) Alkaline Phosphatase 49 U/L (46-116) Aspartate Amino Transferase (AST) 24 U/L (<34) Total Bilirubin 1.0 mg/dL (0.2-1.0) Labs and/or images reviewed: Labs reviewed by me, Image(s) reviewed by me Assessment/Plan Assessment/Plan Sepsis secondary to urinary tract infection: Blood cultures urine cultures Rocephin Acute left flank pain secondary to acute pyelonephritis History of kidney stones Kidney ultrasound negative CT abdomen pelvis negative Acute dehydration: IV fluids Plan discussed with: Patient My Orders Orders - BRANDON REYEZ MD Procedure Category Date Status Time Blood Culture TRISTAN 02/06/25 Verified 13:17 Urine Bacterial TRISTAN 02/06/25 Verified Culture 13:17 Ceftriaxone Ivpb PHA 02/07/25 Verified Rocephin 09:00 Ceftriaxone Ivpb PHA 02/06/25 Verified Rocephin 13:30 Date of Service: Feb 06, 2025 Billing Provider: BRANDON REYEZ MD Common Visit Codes: [id number] INP/OBS CARE(HIGH) BRANDON REYEZ MD Feb 06, 2025 13:21
[2025-02-06] MEDS: PROCHLORPERAZINE EDISYLATE 5 MG/ML 2ML VIAL IV PRN (15:01)
[2025-02-06] MEDS: cefTRIAXone 1GM/50ML D5W 50 ML IV ONE (15:01)
[2025-02-07] VITALS (8 sets, daily range): BP systolic 106–177; BP diastolic 68–109; PULSE 84–103; RESP 16–22; TEMP 97.3–98.6; O2SAT 96–99
--- NOTE | 2025-02-07 08:39 | DVHPN2 ---
Reviewed: Care Plan, H&P, Labs, Medications, Previous Orders, Radiology Changes from previous H/P or p: No Changes Eyes: No Pain, No Vision change, No Conjunctivae inflammation, No Eyelid inflammation, No Other, No Redness ENT: No Ear pain, No Ear discharge, No Nose pain, No Nose discharge, No Nose congestion, No Mouth pain, No Mouth swelling, No Throat pain, No Throat swelling, No Other Cardiovascular: No Chest Pain, No Palpitations, No Orthopnea, No Paroxysmal Noc. Dyspnea, No Edema, No Lt Headedness, No Other Respiratory: No Cough, No Dry, No Shortness of breath, No SOB with excertion, No Wheezing, No Hemoptysis, No Pleuritic Pain, No Sputum, No Other Gastrointestinal: Nausea; No Vomiting; Abdominal Pain; No Diarrhea, No Constipation, No Melena, No Hematochezia, No Other Genitourinary: No Dysuria, No Frequency, No Incontinence, No Hematuria, No Retention, No Other Musculoskeletal: No other, No neck pain, No shoulder pain, No arm pain, No back pain, No hand pain, No leg pain, No foot pain Skin: No Rash, No Lesions, No Jaundice, No Bruising, No Other Objective Vitals Vital Signs Date Time Temp Pulse Resp B/P (MAP) Pulse Ox O2 Delivery O2 Flow Rate FiO2 02/07/25 05:00 98.3 87 18 134/68 (90) 99 98.3 02/06/25 20:00 Room Air* 0 21 Intake/Output Intake and Output 02/07/25 07:00 Intake Total 2410 ml Balance 2410 ml Intake Oral 2410 ml # Voids 5 Medications Current Medications Medications Dose Ordered Sig/Elizabeth Route Start Time Stop Time Status Last Admin Dose Admin Ondansetron HCl 4 mg Q4HP PRN IV 02/05/25 19:15 02/06/25 10:28 4 MG Docusate Sodium 100 mg BIDPRN PRN PO 02/05/25 19:15 Morphine Sulfate 2 mg Q4HPRN PRN IV 02/05/25 19:15 02/06/25 10:34 2 MG Pantoprazole Sodium 40 mg DAILY IV 02/06/25 10:00 02/06/25 09:53 40 MG Ceftriaxone Sodium 50 ml @ 100 mls/hr DAILY@09 IV 02/07/25 09:00 Prochlorperazine Edisylate 5 mg Q4HPRN PRN IV 02/06/25 13:45 02/06/25 15:01 5 MG Laboratory Results Laboratory Tests 02/06/25 05:20 Labs and/or images reviewed: Labs reviewed by me, Image(s) reviewed by me Assessment/Plan Assessment/Plan Sepsis secondary to urinary tract infection: Blood cultures pending, urine cultures pending, continue Rocephin Acute left flank pain secondary to acute pyelonephritis History of kidney stones Kidney ultrasound negative Chronic current heavy alcohol abuse: Banana bag, counseling CT abdomen pelvis negative Acute dehydration: IV fluids Plan discussed with: Patient My Orders Orders - BRANDON REYEZ MD Procedure Category Date Status Time Blood Culture TRISTAN 02/06/25 In Process 13:17 Urine Bacterial TRISTAN 02/06/25 Logged Culture 13:17 Ceftriaxone 1gm/50ml PHA 02/07/25 In Process D5w (Rocephin) 09:00 Prochlorperazine Inj PHA 02/06/25 In Process (Compazine Inj) 13:45 Date of Service: Feb 07, 2025 Billing Provider: BRANDON REYEZ MD Common Visit Codes: [id number] INP/OBS CARE(HIGH) BRANDON REYEZ MD Feb 07, 2025 08:39
[2025-02-07] MEDS: cefTRIAXone 1GM/50ML D5W 50 ML IV SCH (09:12)
[2025-02-07] MEDS: ACETAMINOPHEN 325 MG TAB PO PRN (11:41)
[2025-02-07 16:50] LABS: Urine Bacteria FEW /hpf (None Seen); Urine Blood Negative /uL (Negative); Urine Clarity Clear (Clear); Urine Color Light-Yellow (Yellow); Urine Hyaline Cast FEW /lpf (0 - 2); Urine Protein, UAD Negative (Negative); Urine Specific Gravity 1.011 (1.001-1.035); Urine Squamous Epithelial Cell FEW /hpf (<5); Urine Urobilinogen Normal (Negative); Urine WBC < 1 /HPF (0-5)
[2025-02-07 17:04] LABS: Opiate Scree,Urine Neg (NEGATIVE)
[2025-02-07 17:10] LABS: Amphetamine Screen, Urine Neg (NEGATIVE); Barbiturate Scree,Urine Neg (NEGATIVE); Benzodiazephine Screen, Urine Neg (NEGATIVE); Cannabinoid Screen, Urine Pos (NEGATIVE); Cocaine Screen, Urine Neg (NEGATIVE); Phencyclidine Screen, Urine Neg (NEGATIVE)
[2025-02-07] MEDS: FOLIC ACID 1 MG, MULTIPLE VITAMIN 10 ML, MAGNESIUM SULF SDV 50% 8 MEQ, THIAMINE INJ 100... INJ SCH (18:18)
[2025-02-08 01:00] VITALS: BP 159/102; PULSE 95; RESP 19; TEMP 98.7; O2SAT 97
[2025-02-08] MEDS: hydrALAZINE HCL 20 MG/ML VL IV PRN (04:57)
[2025-02-08 05:00] VITALS: BP 160/107; PULSE 91; RESP 19; TEMP 97.9; O2SAT 98
[2025-02-08 08:00] VITALS: O2SAT 97
[2025-02-08 09:00] VITALS: BP 109/86; PULSE 119; RESP 17; TEMP 98; O2SAT 97
--- NOTE | 2025-02-08 10:08 | DVHPN2 ---
Reviewed: Care Plan, H&P, Labs, Medications, Previous Orders, Radiology Changes from previous H/P or p: No Changes Eyes: No Pain, No Vision change, No Conjunctivae inflammation, No Eyelid inflammation, No Other, No Redness ENT: No Ear pain, No Ear discharge, No Nose pain, No Nose discharge, No Nose congestion, No Mouth pain, No Mouth swelling, No Throat pain, No Throat swelling, No Other Cardiovascular: No Chest Pain, No Palpitations, No Orthopnea, No Paroxysmal Noc. Dyspnea, No Edema, No Lt Headedness, No Other Respiratory: No Cough, No Dry, No Shortness of breath, No SOB with excertion, No Wheezing, No Hemoptysis, No Pleuritic Pain, No Sputum, No Other Gastrointestinal: Nausea; No Vomiting; Abdominal Pain; No Diarrhea, No Constipation, No Melena, No Hematochezia, No Other Genitourinary: No Dysuria, No Frequency, No Incontinence, No Hematuria, No Retention, No Other Musculoskeletal: No other, No neck pain, No shoulder pain, No arm pain, No back pain, No hand pain, No leg pain, No foot pain Skin: No Rash, No Lesions, No Jaundice, No Bruising, No Other Objective Vitals Vital Signs Date Time Temp Pulse Resp B/P (MAP) Pulse Ox O2 Delivery O2 Flow Rate FiO2 02/08/25 09:00 98.0 119 17 109/86 (94) 97 98.0 02/07/25 20:00 Room Air* 0 21 Intake/Output Intake and Output 02/08/25 07:00 Intake Total 975 ml Balance 975 ml Intake Oral 975 ml # Voids 8 Medications Current Medications Medications Dose Ordered Sig/Elizabeth Route Start Time Stop Time Status Last Admin Dose Admin Ondansetron HCl 4 mg Q4HP PRN IV 02/05/25 19:15 02/07/25 21:25 4 MG Docusate Sodium 100 mg BIDPRN PRN PO 02/05/25 19:15 Morphine Sulfate 2 mg Q4HPRN PRN IV 02/05/25 19:15 02/08/25 04:58 2 MG Pantoprazole Sodium 40 mg DAILY IV 02/06/25 10:00 02/07/25 09:12 40 MG Ceftriaxone Sodium 50 ml @ 100 mls/hr DAILY@09 IV 02/07/25 09:00 02/07/25 09:12 100 MLS/HR Prochlorperazine Edisylate 5 mg Q4HPRN PRN IV 02/06/25 13:45 02/08/25 04:57 5 MG Folic Acid 1 mg/ Multivitamins 10 ml/Magnesium Sulfate 8 meq/ Thiamine HCl 100 mg/Dextrose 1,013.2 ml @ 125.001 mls/hr DAILY@1800 INJ 02/07/25 18:00 02/07/25 18:18 125.001 MLS/HR Acetaminophen 650 mg Q6HP PRN PO 02/07/25 11:00 02/07/25 11:41 650 MG Hydralazine HCl 10 mg Q6HP PRN IV 02/08/25 03:15 02/08/25 04:57 10 MG Laboratory Results Laboratory Tests 02/06/25 05:20 Urinalysis Test 02/05/25 16:22 Urine Color Light-yellow (Yellow) Urine Clarity Clear (Clear) Urine pH 7.0 (5.0-9.0) Urine Specific [place] 1.011 (1.001-1.035) Urine Protein Negative (Negative) Urine Ketones 1+ (Negative) H Urine Blood Negative /uL (Negative) Urine Nitrite Negative (Negative) Urine Bilirubin Negative (Negative) Urine Urobilinogen Normal mg/dL (Negative) Urine Leukocyte Esterase Negative /uL (Negative) Urine RBC 1 /hpf (0 - 4) Urine Microscopic WBC < 1 /HPF (0-5) Urine Squamous Epithelial Cells Few /hpf (<5) Urine Bacteria Few /hpf (None Seen) H Urine Hyaline Casts Few /lpf (0 - 2) Urine Glucose Normal mg/dL (Normal) Microbiology Microbiology Date/Time Source Procedure Growth Status 02/06/25 16:22 Voided Urine Urine Culture - Preliminary Resulted 02/06/25 14:10 Blood Blood Culture - Preliminary NO GROWTH AFTER 24 HOURS OF INCUBATION. Resulted Labs and/or images reviewed: Labs reviewed by me, Image(s) reviewed by me Assessment/Plan Assessment/Plan Sepsis secondary to urinary tract infection: Blood cultures negative, urine cultures negative, treated with Rocephin Acute left flank pain secondary to acute pyelonephritis History of kidney stones Kidney ultrasound negative Chronic current heavy alcohol abuse: Banana bag, counseling CT abdomen pelvis negative Acute dehydration: IV fluids Feels better and wants to go home Plan discussed with: Patient My Orders Orders - BRANDON REYEZ MD Procedure Category Date Status Time Acetaminophen Tablet PHA 02/07/25 In Process (Tylenol Tablet) 11:00 Date of Service: Feb 08, 2025 Common Visit Codes: [id number] INP/OBS CARE(HIGH) BRANDON REYEZ MD Feb 08, 2025 10:08
[2025-02-08] MEDS ORDERED: THIA100T13 PO (10:11)
[2025-02-08] MEDS ORDERED: FOLI-119 PO (10:11)
[2025-02-08] MEDS ORDERED: CIPR-173 PO (10:11)
--- NOTE | 2025-02-08 10:15 | DVHDS2 ---
Discharge Summary Date of Admission Feb 05, 2025 at 19:04 Date of Discharge: Feb 08, 2025 Admitting Diagnosis Left flank pain Wounds: None Labs/Diagnostic Data: Laboratory Results Test 02/07/25 16:22 02/07/25 09:45 02/06/25 05:20 02/05/25 16:22 Urine Opiates Screen Neg (NEGATIVE) Urine Fentanyl Screen Neg (NEGATIVE) Urine Barbiturates Screen Neg (NEGATIVE) Urine Phencyclidine Screen Neg (NEGATIVE) Urine Amphetamines Screen Neg (NEGATIVE) Urine Benzodiazepines Screen Neg (NEGATIVE) Urine Cocaine Screen Neg (NEGATIVE) Urine Cannabinoids Screen Pos (NEGATIVE) Lipase 38 U/L (12-53) Plasma/Serum Blood Alcohol < 3.0 mg/dL (<10) White Blood Count 15.7 10^3/uL (4.4-10.8) Red Blood Count 4.71 10^6/uL (4.0-5.20) Hemoglobin 15.8 g/dL (12.2-16.2) Hematocrit 46.4 % (36.0-46.0) Mean Corpuscular Volume 98.5 fL (80.0-100.0) Mean Corpuscular Hemoglobin 33.5 pg (28.0-32.0) Mean Corpuscular Hemoglobin Concent 34.0 g/dL (32.0-36.0) Red Cell Distribution Width 15.3 % (11.8-14.3) Platelet Count 407 10^3/uL (140-450) Mean Platelet Volume 7.3 fL (6.9-10.8) Neutrophils (%) (Auto) 85.4 % (37.0-80.0) Lymphocytes (%) (Auto) 8.0 % (10.0-50.0) Monocytes (%) (Auto) 6.3 % (0.0-12.0) Eosinophils (%) (Auto) 0.1 % (0.0-7.0) Basophils (%) (Auto) 0.2 % (0.0-2.0) Neutrophils # (Auto) 13.4 10 ^3/uL (1.6-8.6) Lymphocytes # (Auto) 1.3 10 ^3/uL (0.4-5.4) Monocytes # (Auto) 1.0 10 ^3/uL (0-1.3) Eosinophils # (Auto) 0 10 ^3/uL (0-0.8) Basophils # (Auto) 0 10 ^3/uL (0-0.2) Nucleated Red Blood Cells 0.0 % Sodium Level 139 mmol/L (136-145) Potassium Level 3.5 mmol/L (3.5-5.1) Chloride Level 105 mmol/L (98-107) Carbon Dioxide Level 21 mmol/L (20-31) Anion Gap 13 (5-15) Blood Urea Nitrogen 6 mg/dL (9-23) Creatinine 0.65 mg/dL (0.550-1.02) Glomerular Filtration Rate Calc 110 mL/min (>90) BUN/Creatinine Ratio 9.2 (10.0-20.0) Serum Glucose 103 mg/dL (74-106) Calcium Level 9.3 mg/dL (8.7-10.4) Total Bilirubin 1.0 mg/dL (0.2-1.0) Aspartate Amino Transferase (AST) 24 U/L (<34) Alanine Aminotransferase (ALT) 15 U/L (7-40) Alkaline Phosphatase 49 U/L (46-116) Total Protein 7.4 g/dL (5.7-8.2) Albumin 4.2 g/dL (3.2-4.8) Urine Color Light-yellow (Yellow) Urine Clarity Clear (Clear) Urine pH 7.0 (5.0-9.0) Urine Specific [place] 1.011 (1.001-1.035) Urine Protein Negative (Negative) Urine Ketones 1+ (Negative) Urine Blood Negative /uL (Negative) Urine Nitrite Negative (Negative) Urine Bilirubin Negative (Negative) Urine Urobilinogen Normal mg/dL (Negative) Urine Leukocyte Esterase Negative /uL (Negative) Urine RBC 1 /hpf (0 - 4) Urine Microscopic WBC < 1 /HPF (0-5) Urine Squamous Epithelial Cells Few /hpf (<5) Urine Bacteria Few /hpf (None Seen) Urine Hyaline Casts Few /lpf (0 - 2) Urine Glucose Normal mg/dL (Normal) Other Laboratory Tests 02/06/25 05:20 Brief Hx & Hospital Course: 44-year-old female with a history of kidney stones alcohol abuse came in complaining of left flank pain. CT abdomen pelvis without contrast negative for any kidney stones kidney ultrasound negative. Lipase normal urine showed infection treated with Rocephin blood cultures negative urine cultures negative patient has probably had acute pyelonephritis with left flank pain given banana bag for alcohol abuse discharged home in stable condition prescription for Cipro thiamine folic acid transmitted to pharmacy. Consults/Reason for consult none Operations or Procedures CT abdomen pelvis without contrast Condition at Discharge: Fair Final Diagnosis/Problems List Sepsis secondary to urinary tract infection: Blood cultures negative, urine cultures negative, treated with Rocephin Acute left flank pain secondary to acute pyelonephritis History of kidney stones Kidney ultrasound negative Chronic current heavy alcohol abuse: Banana bag, counseling CT abdomen pelvis negative Lipase Normal Discharge Disposition: Home Discharge Instruct/Medications Diet: Cardiac 2g Na,low cholest Activity: Light activity Follow Up/Referral: Stop drinking alcohol Use medications as prescribed Medications: Thiamine Folic acid Cipro Transmitted to pharmacy 38 (Time taken For discharge summary 38 minutes) Discharge Statement: "Patient was advised to return to the ER or call 911 if any headaches, dizziness, shortness of breath, chest pain, abdominal pain, bleeding, fevers, or worsening of medical condition. Patient was counseled about treatment plan, medications, possible side effects, patientverbalized understanding. All questions were answered to the best of my ability. This discharge took greater then 30 minutes in planning, reviewing documentation, counseling the patient, and discussing with other team members." ASSESSMENT ASSESSMENT Hospital Course Improved Assessment Sepsis secondary to urinary tract infection: Blood cultures negative, urine cultures negative, treated with Rocephin Acute left flank pain secondary to acute pyelonephritis History of kidney stones Kidney ultrasound negative Chronic current heavy alcohol abuse: Banana bag, counseling CT abdomen pelvis negative Lipase Normal Date of Service: Feb 08, 2025 Billing Provider: BRANDON REYEZ MD Common Visit Codes: [id number] DISCH DAY >30min BRANDON REYEZ MD Feb 08, 2025 10:15
[2025-02-08] MEDS: FOLIC ACID 1 MG TAB PO ONE (13:47)
[2025-02-08] MEDS: MAGNESIUM OXIDE 400 MG TAB PO ONE (13:47)
[2025-02-08] MEDS: THIAMINE HCL 100 MG TAB PO ONE (13:47)
[2025-02-08] MEDS: MULTIPLE VITAMIN TAB PO ONE (13:47)
[2025-02-08 14:00] VITALS: BP 113/78; PULSE 127; RESP 18; TEMP 97.8; O2SAT 98
[2025-02-08 15:04] VITALS: BP 160/107; PULSE 114; RESP 17; TEMP 36.6; O2SAT 97
[2025-02-09] MEDS ORDERED: THIAMINE HCL 100 MG TAB PO SCH (10:00)
[2025-02-09] MEDS ORDERED: MULTIPLE VITAMIN TAB PO SCH (10:00)
[2025-02-09] MEDS ORDERED: FOLIC ACID 1 MG TAB PO SCH (10:00)
[2025-02-09] MEDS ORDERED: MAGNESIUM OXIDE 400 MG TAB PO SCH (10:00)
--- NOTE | 2025-02-09 12:10 | ECG ---
[facility] Test Date: 2025-02-05 Test Time: 10:46:10 Pat Name: CHAIM LARSON Department: ED Room: [address] [place] [address] 4 Gender: F Stock Manager: ANDREA : 1980 Requested By: SHMUEL WINCHESTER Order Number: [id number] Reading MD: Alexi Block Measurements Intervals [place] Rate: 84 P: 72 AK: 130 QRS: 93 QRSD: 103 T: 80 QT: 393 QTc: 465 Interpretive Statements Sinus rhythm Borderline right axis deviation Abnormal R-wave progression, late transition Abnrm T, consider ischemia, anterolateral lds Baseline wander in lead(s) V2,V4 Electronically Signed On 02-10-2025 22:29:19 PDT by Alexi Block Please click the below link to view image of tracing.
== END 2025-02-08 16:40 | disposition home or self-care (01) | DRG 720 ==
LOC: ER 10:39 → EDBD 10:39 → OVERFLOW 19:04 → EAST 02-06 01:20
PROVIDERS: ADMIT Family Medicine; ATTEND Family Medicine
DX: A41.9 Sepsis, unspecified organism (principal); E86.0 Dehydration; F10.10 Alcohol abuse, uncomplicated; N10 Acute pyelonephritis; F17.210 Nicotine dependence, cigarettes, uncomplicated; K21.9 Gastro-esophageal reflux disease without esophagitis; Z90.710 Acquired absence of both cervix and uterus; Z90.49 Acquired absence of other specified parts of digestive tract; Z87.442 Personal history of urinary calculi; Z98.51 Tubal ligation status; Z79.899 Other long term (current) drug therapy; N39.0 Urinary tract infection, site not specified
CPT/HCPCS: 36415; 74176; 80048; 80053; 80307; 80320; 81001; 83690; 85025; 87040; 87086; 93005; 96361; 96374; 96375; 99291; G0378; J2405; J2470

== ENCOUNTER 2025-03-06 19:38 | Emergency (ER) | payer MEDICAID ==
[~2025-03-06] VITALS: Ht 170.2 cm; Wt 66.9 kg
[~2025-03-06 19:38] MED LIST changes: -ALUMSUS16 PO; +CIPR-173 PO; +FOLI-119 PO; -PANT40T PO; -PROP1TAB51 PO; -SUCR1TAB31 PO; +THIA100T13 PO
--- NOTE | 2025-03-06 19:53 | ED.PDOC ---
GI ASSESSMENT HPI Comments 44 year old female with a Hx of GERD, Kidney Stones, and Methamphetamine use presents to the ED for the c/c of Right Flank pain w/ associated N/V. Pt states that her symptoms started this morning at approx 2am, and has found no alleviating factors at this time. Pt denies eating or drinking anything out of the ordinary. No other associated symptoms, modifiers, recent injuries or sick contacts present at this time. Time Seen by MD: 19:40 Primary Care Provider: UNKNOWN Reviewed Notes: Nurses Notes, Medications, Allergies Allergies: Coded Allergies: NO KNOWN ALLERGIES (Unverified , 07/06/24) Home Meds Active Scripts Potassium Chloride (Potassium Chloride ER) 10 Meq Tab, 10 MEQ PO BID for 10 Days, #20 TAB Prov:CHRISTINA DAVIES MD 03/06/25 Ondansetron HCl (Ondansetron Hydrochloride) 8 Mg Tab, 8 MG PO Q6HP PRN, #30 TAB Prov:CHRISTINA DAVIES MD 03/06/25 Gabapentin (Once-Daily) (Gabapentin) 300 Mg Tab, 300 MG PO Q6HP PRN, #60 TAB Prov:CHRISTINA DAVIES MD 03/06/25 Folic Acid (Folic Acid) 1 Mg Tab, 1 MG PO DAILY, #30 TAB Prov:BRANDON REYEZ MD 02/08/25 Thiamine HCl (Thiamine Hydrochloride) 100 Mg Tab, 100 MG PO DAILY, #30 TAB Prov:BRANDON REYEZ MD 02/08/25 Ciprofloxacin Hcl (Cipro) 500 Mg Tab, 1 TAB PO BID, #20 TAB Prov:BRANDON REYEZ MD 02/08/25 Acamprosate Calcium (ACAMPROSATE CALCIUM DR) 333 Mg Tab, 666 MG OR TID, #180 TAB Prov:RIA RODRIGUEZ MD 12/27/24 Ondansetron Odt 4MG Tab (ZOFRAN PO) 4 Mg Tb, 4 MG PO Q6HP PRN for 5 Days, #20 TAB ODT TAB-DISSOLVE IN MOUTH, THEN SWALLOW Prov:KIA ENGLISH 12/04/24 Famotidine (Pepcid AC) 20 Mg Tab, 20 MG PO BID for 30 Days, #60 TAB Prov:FOREST MOMIN MD 07/31/24 Information Source: Patient Mode of Arrival: Ambulatory Timing: Hours Duration: Since onset, Hours Prehospital treatment: None Vomitus: Watery Stool: Normal Severity: Moderate Recent: None Recent Hx of: Other Pain Location: Diffuse Modifying Factors: Exertion, Movement Associated sign and symptoms: Nausea, Vomiting, Abdominal Pain Past Medical History PAST MEDICAL HISTORY: GERD, Kidney Stones Surgical History: Appendectomy, Hernia Repair, Hysterectomy, 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 History Family History Family History: Family hx of heart estrella Social History Smoker: Cigarettes Alcohol: Heavy Drugs: Marijuana, Methamphetamine Lives In: Home Constitutional: denies: chills, diaphoresis, fatigue, fever, malaise, sweats, weakness, others EENTM: denies: blurred vision, double vision, ear bleeding, ear discharge, ear drainage, ear pain, ear ringing, eye pain, eye redness, hearing loss, mouth pain, mouth swelling, nasal discharge, nose bleeding, nose congestion, nose pain, photophobia, tearing, throat pain, throat swelling, voice changes, others Respiratory: denies: cough, hemoptysis, orthopnea, SOB at rest, shortness of b reath, SOB with excertion, stridor, wheezing, others Cardiovascular: denies: chest pain, dizzy spells, diaphoresis, Dyspnea on exertion, edema, irregular heart beat, left arm pain, lightheadedness, palpitations, PND, syncope, others Gastrointestinal: reports: nausea, vomiting; denies: abdomen distended, abdominal pain, blood streaked bowels, constipated, diarrhea, dysphagia, difficulty swallowing, hematemesis, melena, poor appetite, poor fluid intake, rectal bleeding, rectal pain, others Genitourinary: reports: flank pain; denies: abnormal vagina bleeding, burning, dyspareunia, dysuria, frequency, hematuria, incontinence, pain, , vagina discharge, urgency, others Neurological: denies: dizziness, fainting, headache, left sided numbness, left sided weakness, numbness, paresthesia, pre-existing deficit, right sided numbness, right sided weakness, seizure, speech problems, tingling, tremors, weakness, others Musculoskeletal: denies: back pain, gout, joint pain, joint swelling, muscle pain, muscle stiffness, neck pain, others Integumetry: denies: bruises, change in color, change in hair/nails, dryness, laceration, lesions, lumps, rash, wounds, others Allergic/Immunocompromised: denies: Difficulty Healing, Frequent Infections, Hives, Itching, others Hematologic/Lymphatic: denies: anemia, blood clots, easy bleeding, easy bruising, swollen glands, others Endocrine: denies: excessive hunger, excessive sweating, excessive thirst, excessive urination, flushing, intolerance to cold, intolerance to heat, unexpl ained weight gain, unexplained weight loss, others Psychiatric: denies: anxiety, bipolar disorder, depression, hopeless, panic disorder, schizophrenia, sleepless, suicidal, others All Other Systems: Reviewed and Negative Physical Exam General Appearance: Normal, Severe Distress HEENT: Normal ENT Inspection, Pharynx Normal, TMs Normal Neck: Full Range of Motion, Non-Tender, Normal, Normal Inspection Respiratory: Chest Non-Tender, Lungs Clear, No Accessory Muscle Use, No Respiratory Distress, Normal Breath Sounds Cardiovascular: No Edema, No JVD, No Murmur, No Gallop, Normal Peripheral Pulses, Regular Rate/Rhythm Breast Exam: Deferred Gastrointestinal: Diffuse, No Pulsatile Mass, Soft, Tenderness, Other (Right Flank pain, N/V) Genitalia: Deferred Pelvic: Deferred Rectal: Deferred Extremities: No calf tenderness, Normal capillary refill, Normal inspection, Normal range of motion, Non-tender, No pedal edema Musculoskeletal : Apperance: Normal Neurologic: Alert, bead stringer II-XII nml as Tested, No Motor Deficits, Normal Affect, Normal Mood, No Sensory Deficits Cerebellar Function: Normal Reflexes: Normal Skin: Dry, Normal Color, Warm Lymphatic: No Adenopathy Was a procedure done? Was a procedure done?: No GI differential Dx Differential Diagnosis: Appendicitis, Cholangitis, Cholecystitis, Constipation, Diverticular disease, Dysmenorrhea, Esophagitis, Gastritis/PUD, Gastroenteritis, GI hemorrhage, Hernia, Hepatitis, Inflammatory BD, Ischemic Bowel, Ovarian cyst/torsion, Pancreatitis, PID, Urinary Obstruction, UTI, Urolithiasis, Deh ydration, Drug toxicity, Electrolyte Imbalance, Food Poisoning, , Renal Failure, Ischemic Bowel, Stress Ulcer, Kidney Stone X-Ray, Labs, Meds, VS Vital Signs Date Time Temp Pulse Resp B/P (MAP) Pulse Ox O2 Delivery O2 Flow Rate FiO2 03/06/25 23:45 Room Air* 0 21 03/06/25 23:45 98.6 80 20 148/102 (117) 99 98.6 03/06/25 22:42 102 22 152/102 03/06/25 22:12 101 22 152/102 03/06/25 22:00 98.4 101 22 152/102 (119) 99 98.4 03/06/25 20:20 98.4 104 22 158/111 (127) 98 98.4 Lab Test 03/06/25 20:25 03/06/25 00:00 Range/Units White Blood Count 12.7 H 4.4-10.8 10^3/uL Red Blood Count 4.85 4.0-5.20 10^6/uL Hemoglobin 16.7 H 12.2-16.2 g/dL Hematocrit 48.5 H 36.0-46.0 % Mean Corpuscular Volume 100.1 H 80.0-100.0 fL Mean Corpuscular Hemoglobin 34.4 H 28.0-32.0 pg Mean Corpuscular Hemoglobin Concent 34.4 32.0-36.0 g/dL Red Cell Distribution Width 14.8 H 11.8-14.3 % Platelet Count 412 140-450 10^3/uL Mean Platelet Volume 7.2 6.9-10.8 fL Neutrophils (%) (Auto) 90.5 H 37.0-80.0 % Lymphocytes (%) (Auto) 5.2 L 10.0-50.0 % Monocytes (%) (Auto) 3.9 0.0-12.0 % Eosinophils (%) (Auto) 0.1 0.0-7.0 % Basophils (%) (Auto) 0.3 0.0-2.0 % Neutrophils # (Auto) 11.5 H 1.6-8.6 10 ^3/uL Lymphocytes # (Auto) 0.7 0.4-5.4 10 ^3/uL Monocytes # (Auto) 0.5 0-1.3 10 ^3/uL Eosinophils # (Auto) 0 0-0.8 10 ^3/uL Basophils # (Auto) 0 0-0.2 10 ^3/uL Nucleated Red Blood Cells 0.0 % Sodium Level 136 136-145 mmol/L Potassium Level 3.0 L 3.5-5.1 mmol/L Chloride Level 100 98-107 mmol/L Carbon Dioxide Level 23 20-31 mmol/L Anion Gap 13 5-15 Blood Urea Nitrogen < 5 L 9-23 mg/dL Creatinine 0.81 0.550-1.02 mg/dL Glomerular Filtration Rate Calc 91 >90 mL/min BUN/Creatinine Ratio 6.2 L 10.0-20.0 Serum Glucose 172 H 74-106 mg/dL Calcium Level 9.5 8.7-10.4 mg/dL Total Bilirubin 1.2 H 0.2-1.0 mg/dL Aspartate Amino Transferase (AST) 61 H 13-40 U/L Alanine Aminotransferase (ALT) 52 H 7-40 U/L Alkaline Phosphatase 67 46-116 U/L Total Protein 8.2 5.7-8.2 g/dL Albumin 4.6 3.2-4.8 g/dL Lipase 27 12-53 U/L Urine Color Yellow Yellow Urine Clarity Ex.turbid Clear Urine pH 6.0 5.0-9.0 Urine Specific [place] 1.030 1.001-1.035 Urine Protein 1+ H Negative Urine Ketones 3+ H Negative Urine Blood 1+ H Negative /uL Urine Nitrite Negative Negative Urine Bilirubin Negative Negative Urine Urobilinogen 2 H Negative mg/dL Urine Leukocyte Esterase Negative Negative /uL Urine RBC 5 0 - 4 /hpf Urine Microscopic WBC 4 0-5 /HPF Urine Squamous Epithelial Cells Many <5 /hpf Urine Bacteria Few H None Seen /hpf Urine Mucus Many None Seen Urine Glucose 1+ H Normal mg/dL Current Medications Medications (Trade) Dose Ordered Sig/Elizabeth Route Start Time Stop Time Status Last Admin Metoclopramide HCl (Reglan Injection) 10 mg ONCE ONCE IV 03/06/25 20:00 03/06/25 20:01 DC 03/06/25 21:59 Sodium Chloride 1,000 ml @ 1,000 mls/hr Q1H ONCE IVB 03/06/25 20:00 03/06/25 20:59 DC 03/06/25 21:56 Morphine Sulfate 4 mg ONCE ONCE IV 03/06/25 20:00 03/06/25 20:01 DC 03/06/25 22:12 Diphenhydramine HCl (Benadryl Injection) 50 mg ONCE ONCE IV 03/06/25 20:00 03/06/25 20:01 DC 03/06/25 22:11 Potassium Chloride (Klor-Con Tablet) 20 meq ONCE ONCE PO 03/06/25 21:30 03/06/25 21:31 DC 03/06/25 22:12 Ondansetron HCl (Zofran) 8 mg ONCE ONCE IV 03/07/25 00:00 03/07/25 00:01 DC 03/06/25 23:57 Time of 1ST Reevaluation: 20:18 Reevaluation 1ST: Unchanged Patient Education/Counseling: Diagnosis, Treatment, Need For Follow Up Family Education/Counseling: No Family Present SEPSIS Sepsis Screen Physician Orders Ct Ab Pel Wo Con-No Oral Or Iv (03/06/25 19:55) Heplock Iv (03/06/25 19:55) Vital Signs Date Time Temp Pulse Resp B/P (MAP) Pulse Ox O2 Delivery O2 Flow Rate FiO2 03/06/25 23:45 Room Air* 0 21 03/06/25 23:45 98.6 80 20 148/102 (117) 99 98.6 03/06/25 22:42 102 22 152/102 03/06/25 22:12 101 22 152/102 03/06/25 22:00 98.4 101 22 152/102 (119) 99 98.4 03/06/25 20:20 98.4 104 22 158/111 (127) 98 98.4 Laboratory Tests Test 03/06/25 20:25 White Blood Count 12.7 10^3/uL (4.4-10.8) H Medications Medications Dose Ordered Sig/Elizabeth Route Start Time Stop Time Status Last Admin Dose Admin Diphenhydramine HCl 50 mg ONCE ONCE IV 03/06/25 20:00 03/06/25 20:01 DC 03/06/25 22:11 Metoclopramide HCl 10 mg ONCE ONCE IV 03/06/25 20:00 03/06/25 20:01 DC 03/06/25 21:59 Morphine Sulfate 4 mg ONCE ONCE IV 03/06/25 20:00 03/06/25 20:01 DC 03/06/25 22:12 Ondansetron HCl 8 mg ONCE ONCE IV 03/07/25 00:00 03/07/25 00:01 DC 03/06/25 23:57 Potassium Chloride 20 meq ONCE ONCE PO 03/06/25 21:30 03/06/25 21:31 DC 03/06/25 22:12 Sodium Chloride 1,000 ml @ 1,000 mls/hr Q1H ONCE IVB 03/06/25 20:00 03/06/25 20:59 DC 03/06/25 21:56 Departure 1 Departure Time of Disposition: 22:00 Impression: Primary Impression: Nausea and vomiting Additional Impressions: Hiatal hernia Ovarian cyst Disposition: HOME / SELF CARE / HOMELESS Condition: Stable e-Prescriptions Potassium Chloride (Potassium Chloride ER) 10 Meq Tab 10 MEQ PO BID for 10 Days, #20 TAB Prov: CHRISTINA DAVIES MD 03/06/25 Ondansetron HCl (Ondansetron Hydrochloride) 8 Mg Tab 8 MG PO Q6HP PRN, #30 TAB Prov: CHRISTINA DAVIES MD 03/06/25 Gabapentin (Once-Daily) (Gabapentin) 300 Mg Tab 300 MG PO Q6HP PRN, #60 TAB Prov: CHRISTINA DAVIES MD 03/06/25 Discharged With: Self Critical Care Note Critical Care Time?: No Stability Stability form required: No Heart Score Heart Score: Heart Score Response (Comments) Value History N/A 0 EKG N/A 0 Age N/A 0 Risk Factors N/A 0 Troponin N/A 0 Total 0 I personally scribed for CHRITSINA DAVIES MD ([email or web address]) on 03/06/25 at 19:53. Electronically submitted by [facility] ([email or web address]). CHRISTINA DAVIES MD Mar 06, 2025 19:53
[2025-03-06 20:49] LABS: Hematocrit 48.5 % (36.0-46.0); Hemoglobin 16.7 g/dL (12.2-16.2); Mean Corpuscular Hemoglobin 34.4 pg (28.0-32.0); Mean Corpuscular Volume 100.1 fL (80.0-100.0); Nucleated Red Blood Cells % 0.0 %
[2025-03-06 20:56] LABS: Urine Protein, UAD 1+ (Negative)
--- NOTE | 2025-03-06 21:05 | DVH ---
Exam: CT CT AB PEL WO CON-NO ORAL OR IV History: right flank pain Comparison Study: CT CT AB PEL WO CON-NO ORAL OR IV on DOS: 02/05/25, CT CT AB PEL WO CON-NO ORAL OR I V on DOS: 12/27/24, CT CT AB PEL WO CON-NO ORAL OR IV on DOS: 07/27/24 TECHNIQUE: Multidetector CT of the abdomen and pelvis without IV contrast. Axial, coronal and sagitta l multiplanar reformats were obtained from the axial data set by the technologist. Radiation Dose Information: CT Dose: CTDI volume is 6.6 mGy. Dose-length product is 355.58 mGy*cm FINDINGS: Bibasilar atelectasis. Partially visualized heart is unremarkable. Subcentimeter hypodense right hepatic lobe lesion that is too small to characterize. Mild hepatomega ly. Otherwise, liver, spleen, gallbladder, pancreas and adrenal glands unremarkable. Kidneys and ureters are unremarkable. Urinary bladder is decompressed limiting evaluation. Status po st hysterectomy. 2.4 cm right ovarian cyst. Small hiatal hernia. The stomach is unremarkable. Small bowel loops are unremarkable. Appendix is not definitely visualized. Small to moderate amount of fecal material within the colon. No evidence of intraperitoneal free air or free fluid. No evidence of aortic aneurysm. No significant lymphadenopathy. Soft tissues are no destructive osseous lesions noted. unremarkable. IMPRESSION: No evidence of acute abdominopelvic abnormalities. 2.4 cm right ovarian cyst. Small hiatal hernia. Mild hepatomegaly with subcentimeter hypodense hepati c lesion that is too small to characterize.
[2025-03-06 21:08] LABS: Albumin 4.6 g/dL (3.2-4.8); Alkaline Phosphatase 67 U/L (46-116); Anion Gap 13 (5-15); Calcium 9.5 mg/dL (8.7-10.4); Carbon Dioxide 23 mmol/L (20-31); Chloride 100 mmol/L (98-107); Lipase 27 U/L (12-53)
[2025-03-06 21:09] LABS: Bilirubin, Total 1.2 mg/dL (0.2-1.0)
[2025-03-06 21:11] LABS: Alanine Aminotransferase 52 U/L (7-40); BUN/Creatinine Ratio 6.2 (10.0-20.0); Blood Urea Nitrogen < 5 mg/dL (9-23); Glucose 172 mg/dL (74-106); Potassium 3.0 mmol/L (3.5-5.1); Sodium 136 mmol/L (136-145); Total Protein 8.2 g/dL (5.7-8.2)
[2025-03-06] MEDS ORDERED: POTA-228 PO (21:27)
[2025-03-06] MEDS ORDERED: ONDA-180 PO (21:27)
[2025-03-06] MEDS ORDERED: GABA300T4 PO (21:27)
[2025-03-06] MEDS: SODIUM CHLORIDE 0.9% 1,000 ML IVB ONE (21:56)
[2025-03-06] MEDS: METOCLOPRAMIDE HCL 5MG/ml INJ 2ml VIAL IV ONE (21:59)
[2025-03-06] MEDS: diphenhdrAMINE HCL 50 MG/1 ML VL IV ONE (22:11)
[2025-03-06] MEDS: POTASSIUM CHL 20 Meq TABLET PO ONE (22:12)
[2025-03-06] MEDS: MORPHINE SULFATE 4 MG/ML SYR/VIAL IV ONE (22:12)
[2025-03-06 23:45] VITALS: BP 148/102; PULSE 80; RESP 20; TEMP 98.6; O2SAT 99
[2025-03-06] MEDS: ONDANSETRON HCL 4 MG/2 ML VIAL IV ONE (23:57)
== END 2025-03-07 00:10 | disposition home or self-care (01) ==
LOC: ER 19:38
DX: K44.9 Diaphragmatic hernia without obstruction or gangrene (principal); N83.201 Unspecified ovarian cyst, right side; R11.2 Nausea with vomiting, unspecified; F17.210 Nicotine dependence, cigarettes, uncomplicated; F12.90 Cannabis use, unspecified, uncomplicated; F19.90 Other psychoactive substance use, unspecified, uncomplicated; K21.9 Gastro-esophageal reflux disease without esophagitis; F10.10 Alcohol abuse, uncomplicated; Z98.890 Other specified postprocedural states; Z90.710 Acquired absence of both cervix and uterus; Z90.49 Acquired absence of other specified parts of digestive tract; Z87.442 Personal history of urinary calculi; Z79.899 Other long term (current) drug therapy; Y90.9 Presence of alcohol in blood, level not specified
CPT/HCPCS: 36415; 74176; 80053; 81001; 83690; 85025; 96361; 96374; 96375; 99285; J1200; J2270; J2405; J2765; J7030